=== PATIENT | female | born 1955 | race African-American/Black ===

== ENCOUNTER 2024-08-04 10:32 | Outpatient (AMB) | payer OTHER, SELFPAY ==
--- NOTE | 2024-08-04 10:36 | A.OFFVIS_ITS ---
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 States she has tightness, pain and discomfort from shoulder down to her foot. Hx of botox injections done at [facility], in her arm and T-spine and as of 6 months ago she is only getting in her arm only. States injections helped, once her doctor at [facility] retired she was referred to Dr Jane [facility]. No MRI done. 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 Left upper extremity spasticity. Treated with botulinum toxin injections by Dr. Mercer until he retired. Last injection with Dr. Mercer 08/20/2023. Transferred to Dr. Mercado for the injections, who did injections 1-2, none for the last 5-[address] Mercado referred patient to me. Ambulatory, using a cane. Not driving. 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 Mod I with toileting. I reviewed notes from Dr. Mercado's office. We further requested today for procedure notes. Received a follow-up note but not procedure note. I still do not have the information of how much was injected and which muscles. [facility] Medical History (Updated 08/04/24 @ 14:06 by Shyla Burgos MD) History of hemorrhagic stroke with residual hemiparesis Right spastic hemiparesis Social History (Updated 08/04/24 @ 10:44 by Amy Patel CCM) Current occupational status: retired and disabled Physical Exam Vital Signs: BMI result Body Mass Index 20.8 Constitutional: Patient appears to be in no acute distress, well nourished and well developed. Patient was appropriately conversant and oriented. Good historian. Neurological: Right elbow flexion has end range spasticity, Pinky 2 Tends to pronate right forearm, Pinky 2. Right wrist flexion not an issue appears like, wrist is extended. Right fingers are extended, but has spontaneous movement and tends to cross over. Assessment & Plan Assessment & Plan (1) Right spastic hemiparesis: Code(s): G81.11 - Spastic hemiplegia affecting right dominant side Category: Medical (2) History of hemorrhagic stroke with residual hemiparesis: Code(s): I69.359 - Hemiplegia and hemiparesis following cerebral infarction affecting unspecified side Category: Medical Plan Patient?s abnormal muscle tone in the setting of past stroke is interfering with functional ability, and is expected to result in joint contracture without adequate intervention. Standard medical treatments have failed. Surgical intervention is considered to be the last option. Therefore chemodenervation using botulinum is deemed necessary to enhance function and allow additional therapeutic modalities to be employed. We talked about botulinum toxin injections, why it is done, how it is done, and set goals for her. She has done this injections for many years now since Dr. Mercer. I would be happy to take over. Based on her exam, would inject right brachialis, brachioradialis and pronator teres muscles, 50 units each, total 150 units at least. I think we are looking into early August for the injection, pending prior approval. Also used educational materials to show her what her spasticity looks like and what we need to be doing. Patient eager and happy to proceed. Assessment and plan discussed with patient, and patient was agreeable. All questions were answered thoroughly. Total of 45 minutes spent today including chart review, results review, history taking, physical examination, discussion of assessment and plan, and coordination of care. [ ] Shyla Burgos MD, FINESSE Board Certified, [place] Board of Physical Medicine and Rehabilitation (ABPMR) Board Certified, [place] Board of Electrodiagnostic Medicine (ABEM) Coding Level of Care Code New Pt Level 4 (66236) Complex EM visit Add On G2211 Diagnoses Right spastic hemiparesis G81.11 History of hemorrhagic stroke with residual hemiparesis I69.359
[2024-08-04 10:37] VITALS: BMI 20.8
--- OUTSIDE RECORDS SUMMARY | 2024-08-04 11:55 | XMS_ITS | Data Portability ---
Author Organization [employer], Pr in - CONEXANCE MD Address [address] [place] [address] Care Team Providers Care Land Planner Name Role Phone [facility] Referring Provider [phone] Assessment No assessment recorded. Plan of Treatment Reminders Order Date Submit Date Provider Last Modified By Organization Details Last Modified Time Details Appointments None recorded. Lab None recorded. Referral None recorded. Procedures None recorded. Surgeries None recorded. Imaging None recorded. Medication Orders codeine 10 mg-guaife nesin 100 mg/5 mL oral liquid 023 [id number] [email or web address] [id number], [address] [place], [address], 3 14:25:39 Patient TargetsNo targets recorded. Patient InstructionsNo instructions recorded. Reason for Referral None Reported. Medical Equipment None Reported. Medications Name Sig Start Date Stop Date Status Note LastModified by Organization Details LastModified Time carvedilol 6.25 mg tablet TAKE 1 TABLET BY MOUTH IN THE MORNING TAKE 2 TABLETS BY MOUTH IN THE EVENING active Not Available Not Available No t Available atorvastatin 20 mg tablet TAKE 1 TABLET BY MOUTH EVERY DAY active Not Available Not Available No t Available hydralazine 25 mg tablet TAKE 1 TABLET (25 MG TOTAL) BY MOUTH IN THE MORNING 1 TABLET IN THE EVENING AND 1 TABLET AT BEDTIME active Not Available Not Available No t Available chlorthalidone 25 mg tablet TAKE 1 TABLET BY MOUTH EVERY DAY active Not Available Not Available No t Available aspirin 81 mg tablet,delayed release TAKE 1 TABLET BY MOUTH EVERY DAY active Not Available Not Available No t Available magnesium oxide 400 mg (241.3 mg magnesium) tablet TAKE 1 TABLET BY MOUTH EVERY DAY active Not Available Not Available No t Available ferrous sulfate 325 mg (65 mg iron) tablet TAKE 1 TABLET BY MOUTH EVERY DAY active Not Available Not Available No t Available lisinopril 30 mg tablet TAKE 1 TABLET BY MOUTH EVERY DAY active Not Available Not Available No t Available codeine 10 mg-guaifenesin 100 mg/5 mL oral liquid Take 15 mL every day by oral route at bedtime for 5 days. 2022 active Not Available Not Available Not Avai lable cholecalciferol (vitamin D3) 50 mcg (2,000 unit) tablet TAKE 1 TABLET BY MOUTH EVERY DAY active Not Available Not Available No t Available Vitals Date Recorded Body weight Respiratory rate Heart rate Body height Body temperature Oxygen saturation Oxygen saturation in Arterial blood by Pulse oximetry Systolic blood pressure Diastolic blood pressure Provider Name and Address Organization Details Last Updated DateTime 3 89644.8 56 g 18 /min 86 /min 157.48 cm 99.8 [degF] 98 % 98 % 127 mm[Hg] 83 mm[Hg] Not Available [facility] - production 3 14:20:17 Social History None recorded. Functional Status None recorded. Mental Status None recorded. Family History Nothing Reported. Medical History No medical history recorded. Gynecological HistoryNo gynecological history recorded. Obstetrics History GPAL:G 0 P 0 0 0 0 Past Encounters Encounter ID Performer Location Encounter Start Date Encounter Closed Date Diagnosis/Indication Diagnosis SNOMED-CT Code Diagnosis ICD10 Code Diagnosis Note [id number] Shea Mars MD [facility] - [facility] [address] [place] [phone] 03/09/2023 14:20:14 03/09/2023 14:26:34 Viral upper respiratory tract infection 988600033 J06.9 runny eyes, nose, cough worse at night. Advised otc nasal decongesta nt and will take robitussin with codeine qhs. MIld fever, no other focal or constituti onal sx to suggest bacterial process Health Concerns Section Related Observation LastModified by Organization Detai ls LastModified Time None Recorded Concern Status LastModified by Organization Details LastModified Time None Recorded Advance Directives Directive None Recorded Payers Insurance Date Sequence Insurance Name Policy Number Policy Altman Covered Member ID Altman Member ID Guarantor Name 03/09/2023 1 [facility] - DOS ON OR AFTER 2022 - DUAL ELIGIBLE - RESIDENTIAL OPTIONS AND ONE CARE (MEDICARE REPLACEMENT/ADV ANTAGE - HMO) Meme Naranjo [id number] Meme Naranjo Notes Date Note Type Note Provider Name and Address Organization Details Recorded Time 03/09/2023 text/html [facility] Nursing Assessment: Chief Complaints: URI Allergies: Unknown Comments: Member reports having a cough/cold/mika estion - Denies GRAYSON and body aches - Denies fever x1 week - Yonathan Mars MD [address] [place] [address],[address], [place], [address], DAVID - [facility] 03/09/2023 14:26:31 OBGyn Episode No OBEpisode recorded.
--- OUTSIDE RECORDS SUMMARY | 2024-08-04 11:55 | XMS_ITS | Clinical Summary ---
Author Organization [facility] Address [address] [facility] [address] [place] [address] Phone Care Team Providers Care Cardiovascular Specialist Name Role Phone Maria Esther Morales MD Primary Care Provider [phone] Allergies No known active allergies Medications aspirin (ST NANDINI) 81 MG EC tablet Take 1 tablet by mouth 1 (one) time each day Active tiZANidine (ZANAFLEX) 4 MG capsule Take 2 capsules by mouth in the morning and 2 capsules in the evening and 2 capsules before bedtime. Active ferrous sulfate 325 (65 Fe) MG tablet Take 1 tablet by mouth 1 (one) time each day 05/31/2012 Active carBAMazepine (CARBATROL) 100 MG 12 hr capsule Take 1 capsule by mouth in the morning and 1 capsule in the evening. Active baclofen (LIORESAL) 10 MG tablet Take 1 tablet by mouth in the morning and 1 tablet in the evening and 1 tablet before bedtime. Active atorvastatin (LIPITOR) 20 MG tablet Take 20 mg by mouth 1 (one) time each day 09/17/2021 Active lisinopril (PRINIVIL,ZESTR IL) 30 MG tablet Take 30 mg by mouth 1 (one) time each day 10/14/2021 Active Magnesium 400 MG tablet Take 400 mg by mouth 1 (one) time each day Active chlorthalidone 25 MG tablet Take 25 mg by mouth 1 (one) time each day Active hydrALAZINE 25 MG tablet Take 1 tablet (25 mg total) by mouth in the morning and 1 tablet (25 mg total) in the evening and 1 tablet (25 mg total) before bedtime. 270 tablet 3 08/11/2022 Active cinacalcet (Sensipar) 30 MG tablet Take 1 tablet (30 mg total) by mouth 1 (one) time each day 90 tablet 3 02/11/2024 02/06/20 25 Active carvedilol (COREG) 6.25 MG tablet TAKE 1 TABLET BY MOUTH IN THE MORNING TAKE 2 TABLETS BY MOUTH IN THE EVENING 270 tablet 3 02/15/2024 Active Active Problems Problem Noted Date Diagnosed Date Proteinuria, not otherwise specified 10/20/2021 Cerebrovascular accident 10/20/2021 Vitamin D deficiency 10/17/2021 Hypertension 10/17/2021 Renal stone 10/17/2021 Hypercalcemia 10/17/2021 Hyperaldosteronism 10/17/2021 Hemiparesis 10/17/2021 Edema 10/17/2021 Stage 3b chronic kidney disease 10/17/2021 Anemia of chronic disease 10/17/2021 Resolved Problems Problem Noted Date Diagnosed Date Resolved Date Hypotensive episode 10/17/2021 10/21/19 Family History Medical History Relation Comments Kidney disease Child Qvr-Zhguaruz-Zay Kidney Transplant Hypertension Mother Hypertension Sibling 1 Sister/Brother Diabetes Sibling 2 Brother Relation Status Comments Child Father Mother Alive Sibling 1 Sibling 2 Social History Tobacco Use Types Packs/Day Years Used Date Smoking Tobacco: Never Smokeless Tobacco: Never Tobacco Cessation:Counseling Given: Not Answered Alcohol Use Standard Drinks/Week Comments No 0 (1 standard drink = 0.6 oz pur e alcohol) Comments Unknown Sex and Gender Information Value Date Recorded Sex Assigned at Not on file Legal Sex Female 4:58 PM EST Gender Identity Not on file Sexual Orientation Not on file Last Filed Vital Signs Vital Sign Reading Time Taken Comments Blood Pressure 152/88 02/11/2024 9:42 AM EST Pulse 78 02/11/2024 9:42 AM EST Temperature - - Respiratory Rate 14 11/04/2018 12:0 0 PM EDT Oxygen Saturation 99% 02/11/2024 9:42 AM EST Inhaled Oxygen Concentration - - Weight 50.3 kg (110 lb 12.8 oz) 02/11/2024 9:42 AM EST Height 157.5 cm (5' 2 ) 02/11/2024 9:42 AM EST Body Mass Index 20.27 02/11/2024 9:42 AM EST Plan of Treatment Upcoming Encounters Date Type Department Care Team ([facility] st Contact Info) Description 08/10/2024 Orders Only [facility] [address] [phone] Daniel King MD [address] [phone] Stage 3b chronic kidney disease (HCC); Proteinuria, not otherwise specified; Hypertension; Hypercalcemia; Hyperaldosteronism, not otherwise specified (HCC); Cerebrovascular accident (HCC) 08/10/2024 9:20 AM EDT Office Visit [facility] [address] [phone] Daniel King MD [address] [phone] Health Maintenance Due Date Last Done Comments Breast Cancer Screening 1955 Colorectal Cancer Screening: Annual FOBT 2004 Colorectal Cancer Screening: Colonoscopy 2004 Colorectal Cancer Screening: Sigmoidoscopy 2004 Pneumococcal Vaccine: 50+ Ye ars (2 of 2 - PPSV23) 11/13/2020 09/18/2020 Influenza Vaccine (Season Ended) 2024 Pneumococcal Vaccine: Peds ( 0 to 5 Years) and At-Risk Patients (6 to 49 Years) Discontinued 09/18/2020 Hepatitis B Vaccine Aged Out No longe r eligible based on patient's age to complete this topic Procedures Procedure Name Priority Date/Time Associated Diagnosis Comments LIPID PANEL W/RFLX TO DIRECT LDL Routine 08/03/2024 1:48 PM EDT CBC WITH AUTO DIFFERENTIAL Routine 08/03/2024 1:48 PM EDT HEMOGLOBIN A1C Routine 08/03/2024 1:48 PM EDT Stage 3b chronic kidney disease (HCC) Proteinuria, not otherwise specified Hypertension Hypercalcemia Hyperaldosteronism , not otherwise specified (HCC) Cerebrovascular accident (HCC) VITAMIN D 25 HYDROXY Routine 08/03/2024 1:48 PM EDT Stage 3b chronic kidney disease (HCC) Proteinuria, not otherwise specified Hypertension Hypercalcemia Hyperaldosteronism , not otherwise specified (HCC) Cerebrovascular accident (HCC) PTH, INTACT Routine 08/03/2024 1:48 PM EDT Stage 3b chronic kidney disease (HCC) Proteinuria, not otherwise specified Hypertension Hypercalcemia Hyperaldosteronism , not otherwise specified (HCC) Cerebrovascular accident (HCC) PHOSPHATE ( PHOSPHORUS) Routine 08/03/2024 1:48 PM EDT Stage 3b chronic kidney disease (HCC) Proteinuria, not otherwise specified Hypertension Hypercalcemia Hyperaldosteronism , not otherwise specified (HCC) Cerebrovascular accident (HCC) MAGNESIUM Routine 08/03/2024 1:48 PM EDT Stage 3b chronic kidney disease (HCC) Proteinuria, not otherwise specified Hypertension Hypercalcemia Hyperaldosteronism , not otherwise specified (HCC) Cerebrovascular accident (HCC) URIC ACID Routine 08/03/2024 1:48 PM EDT Stage 3b chronic kidney disease (HCC) Proteinuria, not otherwise specified Hypertension Hypercalcemia Hyperaldosteronism , not otherwise specified (HCC) Cerebrovascular accident (HCC) COMPREHENSIVE METABOLIC PANEL Routine 08/03/2024 1:48 PM EDT Stage 3b chronic kidney disease (HCC) Proteinuria, not otherwise specified Hypertension Hypercalcemia Hyperaldosteronism , not otherwise specified (HCC) Cerebrovascular accident (HCC) from Last 3 Months Results * Lipid Panel w/Rfl Direct LDL (08/03/2024 1:48 PM EDT) Cholesterol 117 0 - 200 mg/dL [facility] Triglycerides 71 0 - 150 mg/dL [facility] HDL 52 >=40 mg/dL [facility] LDL Calculated 51 0 - 100 mg/dL [facility] VLDL Cholesterol Emmanuel 14.2 mg/dL [facility] Total Qgd-RBI-Sbil (LDL+VLDL) 65 <145 mg/dL [facility] Chol/HDL Ratio 2.3 0.0 - 4.4 [facility] 08/03/2024 1:48 PM EDT 08/03/2024 6:05 PM EDT us Daniel King MD LAB BLOOD ORDERABLES Final Re sult BEBA [facility] [address] [place] [address] * (ABNORMAL) CBC auto differential (08/03/2024 1:48 PM EDT) WBC 6.5 4.8 - 10.8 K/[facility] RBC 3.60(L) 3.80 - 4.80 M/[facility] Hgb 11.3(L) 11.5 - 16.0 g/dL [facility] Hematocrit 34.8(L) 35.0 - 47.0 % [facility] MCV 96.9 79.0 - 98.0 FL [facility] MCH 31.5 27.0 - 32.0 pcg [facility] MCHC 32.5 32.0 - 37.0 g/dL [facility] RDW 12.2 11.0 - 15.0 % [facility] Platelets 169 130 - 400 K/[facility] MPV 11.0 7.0 - 11.0 FL [facility] nRBC Count 0.0 <1.0 % [facility] NRBC Absolute 0.00 <0.10 [facility] Bands Relative 51.3 % [facility] Lymphocyte Realative Percent 39.0 % [facility] Monocyte Relative Percent 6.3 % [facility] Eosinophil Relative Percent 2.5 % [facility] Basophils Relative Diff 0.6 % [facility] Immature Granulocytes 0.3 % [facility] Neutrophils Absolute 3.34 1.50 - 7.00 [facility] Lymphocytes Absolute 2.54 1.00 - 5.00 [facility] Monocytes Absolute 0.41 0.20 - 1.00 [facility] Eosinophil Absolute 0.16 0.00 - 0.50 [facility] Basophil ABS 0.04 0.00 - 0.20 [facility] Immature Grans (Absolute) 0.02 0.00 - 0.03 [facility] 08/03/2024 1:48 PM EDT 08/03/2024 6:05 PM EDT Daniel King MD LAB BLOOD ORDERABLES Final Re sult Performing Organization Address [facility]/ZIP Co de Phone Number [facility] [address] [place] [address] * Vitamin D 25 Hydroxy (08/03/2024 1:48 PM EDT) Pathologist [facility] Vitamin D, 25-OH, Total 52.2 30.0 - 80.0 ng/mL [facility] Blood (Blood, Venous) 08/03/2024 1:48 PM EDT 08/03/2024 6:05 PM EDT us Daniel King MD LAB BLOOD ORDERABLES Final Re sult Performing Organization Address City/[facility]/ZIP Co de Phone Number [facility] [address] [place] [address] * Uric Acid (08/03/2024 1:48 PM EDT) Uric Acid 5.7 3.1 - 7.8 mg/dL [facility] Blood (Blood, Venous) 08/03/2024 1:48 PM EDT 08/03/2024 6:05 PM EDT us Daniel King MD LAB BLOOD ORDERABLES Final Re sult Performing Organization Address [facility] de Phone Number [facility] [address] [place] [address] * Phosphorus (08/03/2024 1:48 PM EDT) Phosphorus 3.1 2.5 - 4.5 mg/dL [facility] Blood (Blood, Venous) 08/03/2024 1:48 PM EDT 08/03/2024 6:05 PM EDT Daniel King MD LAB BLOOD ORDERABLES Final Re sult Performing Organization Address [facility] de Phone Number [facility] [address] [place] [address] * (ABNORMAL) PTH, Intact (08/03/2024 1:48 PM EDT) PTH 125.8(H) 18.5 - 88.0 pcg/mL [facility] Blood (Blood, Venous) 08/03/2024 1:48 PM EDT 08/03/2024 6:05 PM EDT us Daniel King MD LAB BLOOD ORDERABLES Final Re sult Performing Organization Address [facility] Co de Phone Number [facility] [address] [place] [address] * (ABNORMAL) Magnesium (08/03/2024 1:48 PM EDT) Magnesium 1.8(L) 1.9 - 2.6 mg/dL [facility] Blood (Blood, Venous) 08/03/2024 1:48 PM EDT 08/03/2024 6:05 PM EDT Daniel King MD LAB BLOOD ORDERABLES Final Re sult Performing Organization Address [facility]/ZIP Co de Phone Number [facility] [address] [place] [address] * Hemoglobin A1c (08/03/2024 1:48 PM EDT) [facility] Hemoglobin A1C 4.8 <6.5 % [facility] Estimated Average Glucose 91 mg/dL [facility] Blood (Blood, Venous) 08/03/2024 1:48 PM EDT 08/03/2024 6:05 PM EDT Daniel King MD LAB BLOOD ORDERABLES Final Re sult Performing Organization Address [facility]/ZIP Co de Phone Number [facility] [address] [place] [address] * (ABNORMAL) Comprehensive Metabolic Panel (08/03/2024 1:48 PM EDT) [facility] Sodium 141 133 - 145 mmol/L [facility] Potassium 3.9 3.5 - 5.5 mmol/L [facility] Chloride 108 96 - 110 mmol/L [facility] Bicarbonate (CO2) 24 21 - 32 mmol/L [facility] Anion Gap 9 3 - 11 [facility] Glucose 82 70 - 100 mg/dL [facility] BUN 51(H) 5 - 25 mg/dL [facility] Creatinine Serum 1.66(H) 0.50 - 1.10 mg/dL [facility] eGFR 33(L) >=60 mL/min/1. 73m2 [facility] Comment:Calculation based on the Chronic Kidney Disease Epidemiology Collaboration (CKD-EPI) equation refit without adjustment for race. BUN/Creatinine Ratio 30.7 [facility] Calcium 9.7 8.5 - 10.5 mg/dL [facility] AST (SGOT) 21 10 - 42 unit/L [facility] ALT (SGPT) 18 10 - 60 unit/L [facility] Alkaline Phosphatase 100 42 - 121 unit/L [facility] Total Protein 7.4 6.0 - 8.0 g/dL [facility] Albumin 3.9 3.2 - 5.0 g/dL [facility] Total Bilirubin 0.6 0.0 - 1.4 mg/dL [facility] Blood (Blood, Venous) 08/03/2024 1:48 PM EDT 08/03/2024 6:05 PM EDT us Daniel King MD LAB BLOOD ORDERABLES Final Re sult BEBA [facility] [address] [place] [address] from Last 3 Months Insurance [facility] ([id number]) [facility] ([id number]) Care Teams Cardiovascular Specialist Relationship Specialty Start Date End Date Maria Esther Morales MD [address] [facility] [address] [place] [address] PCP - General 04/09/20
--- OUTSIDE RECORDS SUMMARY | 2024-08-04 11:55 | XMS_ITS | Clinical Summary ---
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 1 Active carBAMazepine (CARBATROL) 100 mg 12 hr capsule Take 1 capsule (100 mg total) by mouth 2 (two) times a day. 1 Active carvediloL (COREG) 6.25 mg tablet Take 1 tablet (6.25 mg total) by mouth 2 (two) times a day with meals. 3 Active cholecalcifero l (VITAMIN D-3) 50 mcg (2,000 unit) tablet Take 1 tablet (2,000 Units total) by mouth 1 (one) time each day. 4 Active ferrous sulfate 325 mg (65 mg elemental iron) tablet Take 1 tablet (325 mg total) by mouth 1 (one) time each day. 4 Active tiZANidine (ZANAFLEX) 4 mg tablet Take 1 tablet (4 mg total) by mouth every 6 (six) hours if needed for muscle spasms. 1 Active magnesium oxide (MAG-OX) 400 mg (241.3 elemental magnesium) tablet TAKE 1 TABLET BY MOUTH EVERY DAY 90 tablet 1 5 Active chlorthalidone (HYGROTON) 25 mg tablet TAKE 1 TABLET BY MOUTH EVERY DAY 90 tablet 1 5 Active lisinopriL (PRINIVIL,ZEST RIL) 30 mg tablet TAKE 1 TABLET BY MOUTH EVERY DAY 90 tablet 1 5 Active atorvastatin (LIPITOR) 20 mg tablet TAKE 1 TABLET BY MOUTH EVERY DAY 90 tablet 1 5 Active hydrALAZINE (APRESOLINE) 25 mg tablet TAKE 1 TABLET BY MOUTH TWICE A DAY 180 tablet 1 5 Active aspirin 81 mg EC tablet TAKE 1 TABLET BY MOUTH EVERY DAY 90 tablet 1 5 Active atorvastatin (LIPITOR) 20 mg tablet TAKE 1 TABLET BY MOUTH EVERY DAY 90 tablet 1 4 07/15/19 25 Discontinued lisinopriL (PRINIVIL,ZEST RIL) 30 mg tablet TAKE 1 TABLET BY MOUTH EVERY DAY 90 tablet 1 4 07/15/19 25 Discontinued hydrALAZINE (APRESOLINE) 25 mg tablet TAKE 1 TABLET BY MOUTH TWICE A DAY 180 tablet 1 4 07/15/19 25 Discontinued aspirin 81 mg EC tablet TAKE 1 TABLET BY MOUTH EVERY DAY 90 tablet 1 4 07/15/19 25 Discontinued Active Problems Problem Noted Date Diagnosed Date Spastic hemiplegia of left d ominant side as late effect of cerebral infarction ([facility] V24, [facility] V28) 07/02/2024 CKD (chronic kidney disease) stage 3, GFR 30-59 ml/min ([facility] V24, [facility] V28) 09/18/2017 Hypertension 09/18/2017 Hemiplegia affecting nondomi nant side ([facility] V24, [facility] V28) 02/29/2016 Anemia in chronic kidney disease 02/26/2016 Vitamin D deficiency 07/24/2015 Osteopenia 07/12/2015 Encounters Date Type Department Care Team Description 06/23/2024 11:15 AM EDT Office Visit Internal Medicine - [address] [place] [address] Rajesh Morales MD Primary hypertension (Primary Dx); Stage 3b chronic kidney disease ([facility] V24, [facility] V28); Hemiplegia affecting nondominant side ([facility] V24, [facility] V28); Spastic hemiplegia of left dominant side as late effect of cerebral infarction ([facility] V24, [facility] V28); Osteopenia of multiple sites from Last 3 Months Immunizations Name Administration Dates Next Due Pneumococcal conjugate 13 va lent (Prevnar 13, PCV13) 2mo and older 09/18/2020 Surgical History Surgery Date Site/Laterality Comments TUBAL LIGATION PROCEDURE: HISTORICAL TUBAL LIGATION COLONOSCOPY PROCEDURE: HISTORICAL COLONOSCOPY Medical History Medical History Date Comments Anemia in chronic kidney disease 02/26/2016 DX:Anemia in chronic kidney disease CKD (chronic kidney disease) stage 3, GFR 30-59 ml/min ([facility] V24, [facility] V28) 09/18/2017 DX:CKD (chronic kidney disea se) stage 3, GFR 30-59 ml/min ([facility]) Hemiplegia affecting nondomi nant side ([facility] V24, [facility] V28) 02/29/2016 DX:Hemiplegia affecting non dominant side ([facility]) Hypertension 09/18/2017 DX:Hypertension Osteopenia 07/12/2015 DX:Osteopenia Vitamin D deficiency 07/24/2015 DX:Vitamin D deficiency Social History Tobacco Use Types Packs/Day Years Used Date Smoking Tobacco: Never Smokeless Tobacco: Never Tobacco Cessation:Counseling Given: Not Answered Alcohol Use Standard Drinks/Week Comments No 0 (1 standard drink = 0.6 oz pur e alcohol) Comments No Sex and Gender Information Value Date Recorded Sex Assigned at Female 01/18/2024 9:46 AM EDT Legal Sex Female 10:52 PM EST Gender Identity Female 01/18/2024 9:46 AM EDT Sexual Orientation Straight 01/29/2024 2: 45 PM EDT Obstetrics History Para Term AB IAB SAB Ectopic Multiple Livin g Live Births 2 Last Filed Vital Signs Vital Sign Reading Time Taken Comments Blood Pressure 120/60 06/23/2024 11:34 AM EDT Pulse 65 06/23/2024 11:30 AM EDT Temperature 36.8 ??C (98.2 ??F) 06/23/2024 11:30 AM E DT Respiratory Rate - - Oxygen Saturation 99% 06/23/2024 11:30 AM EDT Inhaled Oxygen Concentration - - Weight 49.9 kg (110 lb) 06/23/2024 11:30 AM EDT Height 157.5 cm (5' 2 ) 02/02/2024 11:23 AM EST Body Mass Index 20.12 02/02/2024 11:23 AM EST Plan of Treatment Upcoming Encounters Date Type Department Care Team (Late st Contact Info) Description 12/28/2024 11:15 AM EDT Office Visit Internal Medicine - [place] [address] [place] [address] Rajesh Morales MD [address] [place] [address] Health Maintenance Due Date Last Done Comments DTaP,Tdap,and Td Vaccines (1 - Tdap) 1974 Zoster Vaccines (1 of 2) 2005 RSV Immunization Adult Patients (1 - Risk 60-74 years 1-dose series) 2015 Pneumococcal Vaccine: 50+ Years (2 of 2 - PPSV23) 09/18/2021 09/18/2020 Colorectal Cancer Screening: Colonoscopy 03/08/2022 Falls Risk Assessment 03/08/2022 Hepatitis C Screening 03/08/2022 Social Influencers of Health Screening 03/08/2022 COVID-19 Vaccine ( season) 2023 02/05/2021, 07/05/2020, 06/07/2020 Depression Screening 07/21/2024 07/22/2023 Influenza Vaccine (Season Ended) 2024 Hypertension/CHF/CAD Annual BMP Blood Test 08/03/2025 08/03/2024, 02/05/2024, 02/05/2024, Additional history exists Breast Cancer Screening 02/01/2026 02/02/20 24, 01/26/2023, 01/22/2022, Additional history exists Cholesterol Screening (Lipid Panel) 08/03/2029 08/03/2024, 12/25/2023, 12/25/2023 Osteoporosis Screening (Bone Density Screening) 04/19/2034 04/19/2024, 05/23/2020 HIB Vaccines Aged Out No longer eligi ble based on patient's age to complete this topic HPV Vaccines Aged Out No longer eligi ble based on patient's age to complete this topic Hepatitis A Vaccines Aged Out No long er eligible based on patient's age to complete this topic Hepatitis B Vaccines Aged Out No long er eligible based on patient's age to complete this topic IPV Vaccines Aged Out No longer eligi ble based on patient's age to complete this topic MMR Vaccines Aged Out No longer eligi ble based on patient's age to complete this topic Meningococcal ACWY Vaccine Aged Out N o longer eligible based on patient's age to complete this topic Meningococcal B Vaccine Aged Out No l onger eligible based on patient's age to complete this topic RSV Immunization Patients Under 20 months Aged Out No longer eligible based on patient's age to complete this topic Varicella Vaccines Aged Out No longer eligible based on patient's age to complete this topic Procedures Procedure Name Priority Date/Time Associated Diagnosis Comments CBC WITH AUTO DIFFERENTIAL Routine 08/03/2024 1:48 PM EDT Chronic kidney disease (CKD) stage G3b/A1, moderately decreased glomerular filtration rate (GFR) between 30-44 mL/min/1.73 square meter and albuminuria creatinine ratio les* ([facility] V24, [facility] V28) Proteinuria Essential hypertension, malignant Hypercalcemia Hyperaldosteronism, unspecified (CMS/HCC V24) Impending cerebrovascular accident ([facility] V24, CMS/HCC V28) HEMOGLOBIN A1C Routine 08/03/2024 1:48 PM EDT Chronic kidney disease (CKD) stage G3b/A1, moderately decreased glomerular filtration rate (GFR) between 30-44 mL/min/1.73 square meter and albuminuria creatinine ratio les* ([facility]/HCC V24, CMS/HCC V28) Proteinuria Essential hypertension, malignant Hypercalcemia Hyperaldosteronism, unspecified (CMS/HCC V24) Impending cerebrovascular accident (CMS/HCC V24, CMS/HCC V28) LIPID PANEL WITH REFLEX TO DIRECT LDL Routine 08/03/2024 1:48 PM EDT Chronic kidney disease (CKD) stage G3b/A1, moderately decreased glomerular filtration rate (GFR) between 30-44 mL/min/1.73 square meter and albuminuria creatinine ratio les* ([facility]/HCC V24, CMS/HCC V28) Proteinuria Essential hypertension, malignant Hypercalcemia Hyperaldosteronism, unspecified (CMS/HCC V24) Impending cerebrovascular accident (CMS/HCC V24, CMS/HCC V28) CBC AND DIFFERENTIAL Routine 08/03/2024 1:48 PM EDT Chronic kidney disease (CKD) stage G3b/A1, moderately decreased glomerular filtration rate (GFR) between 30-44 mL/min/1.73 square meter and albuminuria creatinine ratio les* (CMS/HCC V24, CMS/HCC V28) Proteinuria Essential hypertension, malignant Hypercalcemia Hyperaldosteronism, unspecified (CMS/HCC V24) Impending cerebrovascular accident (CMS/HCC V24, CMS/HCC V28) VITAMIN D 25 HYDROXY Routine 08/03/2024 1:48 PM EDT Chronic kidney disease (CKD) stage G3b/A1, moderately decreased glomerular filtration rate (GFR) between 30-44 mL/min/1.73 square meter and albuminuria creatinine ratio les* (CMS/HCC V24, CMS/HCC V28) Proteinuria Essential hypertension, malignant Hypercalcemia Hyperaldosteronism, unspecified (CMS/HCC V24) Impending cerebrovascular accident ([facility] V24, CMS/HCC V28) PARATHYROID HORMONE INTACT Routine 08/03/2024 1:48 PM EDT Chronic kidney disease (CKD) stage G3b/A1, moderately decreased glomerular filtration rate (GFR) between 30-44 mL/min/1.73 square meter and albuminuria creatinine ratio les* (CMS/HCC V24, CMS/HCC V28) Proteinuria Essential hypertension, malignant Hypercalcemia Hyperaldosteronism, unspecified (CMS/HCC V24) Impending cerebrovascular accident (CMS/HCC V24, CMS/HCC V28) PHOSPHORUS Routine 08/03/2024 1:48 PM EDT Chronic kidney disease (CKD) stage G3b/A1, moderately decreased glomerular filtration rate (GFR) between 30-44 mL/min/1.73 square meter and albuminuria creatinine ratio les* (CMS/HCC V24, CMS/HCC V28) Proteinuria Essential hypertension, malignant Hypercalcemia Hyperaldosteronism, unspecified (CMS/HCC V24) Impending cerebrovascular accident (CMS/HCC V24, CMS/HCC V28) MAGNESIUM Routine 08/03/2024 1:48 PM EDT Chronic kidney disease (CKD) stage G3b/A1, moderately decreased glomerular filtration rate (GFR) between 30-44 mL/min/1.73 square meter and albuminuria creatinine ratio les* (CMS/HCC V24, CMS/HCC V28) Proteinuria Essential hypertension, malignant Hypercalcemia Hyperaldosteronism, unspecified (CMS/HCC V24) Impending cerebrovascular accident (CMS/HCC V24, CMS/HCC V28) URIC ACID Routine 08/03/2024 1:48 PM EDT Chronic kidney disease (CKD) stage G3b/A1, moderately decreased glomerular filtration rate (GFR) between 30-44 mL/min/1.73 square meter and albuminuria creatinine ratio les* (CMS/HCC V24, CMS/HCC V28) Proteinuria Essential hypertension, malignant Hypercalcemia Hyperaldosteronism, unspecified (CMS/HCC V24) Impending cerebrovascular accident (CMS/HCC V24, CMS/HCC V28) COMPREHENSIVE METABOLIC PANEL Routine 08/03/2024 1:48 PM EDT Chronic kidney disease (CKD) stage G3b/A1, moderately decreased glomerular filtration rate (GFR) between 30-44 mL/min/1.73 square meter and albuminuria creatinine ratio les* (CMS/HCC V24, CMS/HCC V28) Proteinuria Essential hypertension, malignant Hypercalcemia Hyperaldosteronism, unspecified (CMS/HCC V24) Impending cerebrovascular accident (CMS/HCC V24, CMS/HCC V28) MG MAMMO DIGITAL SCREENING W GALDINO BILAT Routine 02/02/2024 11:26 AM EST Encounter for screening mammogram for malignant neoplasm of breast HM DEPRESSION SCREENING Routine 07/22/2023 TALISHA DEXA AXIAL SKELETON Routine 05/23/2020 5:08 PM EST Asymptomatic menopausal state from Last 3 Months or Most Recently Relevant to Health Maintenance Results * Lipid panel with reflex to direct LDL (08/03/2024 1:48 PM EDT) Cholesterol 117 0 - 200 mg/dL LAB CHEMISTRY METHOD 08/03/2024 7:22 PM EDT [facility] Triglycerides 71 0 - 150 mg/dL LAB CHEMISTRY METHOD 08/03/2024 7:22 PM EDT [facility] HDL 52 >=40 mg/dL LAB CHEMISTRY METHOD 08/03/2024 7:22 PM EDT [facility] LDL Calculated 51 0 - 100 mg/dL LAB CHEMISTRY METHOD 08/03/2024 7:22 PM EDT [facility] VLDL Cholesterol Emmanuel 14.2 mg/dL LAB CHEMISTRY METHOD 08/03/2024 7:22 PM EDT [facility] Non HDL Chol. (LDL+VLDL) 65 <145 mg/dL LAB CHEMISTRY METHOD 08/03/2024 7:22 PM EDT [facility] Chol/HDL Ratio 2.3 0.0 - 4.4 LAB CHEMISTRY METHOD 08/03/2024 7:22 PM EDT [facility] Blood Venous blood specimen / Unknown Venipuncture / Unknown 08/03/2024 1:48 PM EDT 08/03/2024 1:48 PM EDT us Daniel King MD LAB BLOOD ORDERABLES Final Result [facility] [address] [place] [address], * (ABNORMAL) CBC auto differential (08/03/2024 1:48 PM EDT) WBC 6.5 4.8 - 10.8 K/mcL LAB HEMETOLOGY METHOD 08/03/2024 6:22 PM EDT [facility] RBC 3.60(L) 3.80 - 4.80 M/mcL LAB HEMETOLOGY METHOD 08/03/2024 6:22 PM EDT [facility] Hemoglobin 11.3(L) 11.5 - 16.0 g/dL LAB HEMETOLOGY METHOD 08/03/2024 6:22 PM [facility] Hematocrit 34.8(L) 35.0 - 47.0 % LAB HEMETOLOGY METHOD 08/03/2024 6:22 PM [facility] MCV 96.9 79.0 - 98.0 FL LAB HEMETOLOGY METHOD 08/03/2024 6:22 PM [facility] MCH 31.5 27.0 - 32.0 pcg LAB HEMETOLOGY METHOD 08/03/2024 6:22 PM [facility] MCHC 32.5 32.0 - 37.0 g/dL LAB HEMETOLOGY METHOD 08/03/2024 6:22 PM [facility] RDW 12.2 11.0 - 15.0 % LAB HEMETOLOGY METHOD 08/03/2024 6:22 PM [facility] Platelets 169 130 - 400 K/mcL LAB HEMETOLOGY METHOD 08/03/2024 6:22 PM [facility] MPV 11.0 7.0 - 11.0 FL LAB HEMETOLOGY METHOD 08/03/2024 6:22 PM [facility] NRBC 0.0 <1.0 % LAB HEMETOLOGY METHOD 08/03/2024 6:22 PM [facility] NRBC Absolute 0.00 <0.10 K/mcL LAB HEMETOLOGY METHOD 08/03/2024 6:22 PM [facility] Neutrophils Relative 51.3 % LAB HEMETOLOGY METHOD 08/03/2024 6:22 PM [facility] Lymphocytes Relative 39.0 % LAB HEMETOLOGY METHOD 08/03/2024 6:22 PM [facility] Monocytes Relative 6.3 % LAB HEMETOLOGY METHOD 08/03/2024 6:22 PM [facility] Eosinophils Relative 2.5 % LAB HEMETOLOGY METHOD 08/03/2024 6:22 PM EDT [facility] Basophils Relative 0.6 % LAB HEMETOLOGY METHOD 08/03/2024 6:22 PM EDT [facility] Immature Granulocytes Relative 0.3 % LAB HEMETOLOGY METHOD 08/03/2024 6:22 PM EDT [facility] Neutrophils Absolute 3.34 1.50 - 7.00 K/mcL LAB HEMETOLOGY METHOD 08/03/2024 6:22 PM EDT [facility] Lymphocytes Absolute 2.54 1.00 - 5.00 K/mcL LAB HEMETOLOGY METHOD 08/03/2024 6:22 PM EDT [facility] Monocytes Absolute 0.41 0.20 - 1.00 K/mcL LAB HEMETOLOGY METHOD 08/03/2024 6:22 PM EDT [facility] Eosinophils Absolute 0.16 0.00 - 0.50 K/mcL LAB HEMETOLOGY METHOD 08/03/2024 6:22 PM EDT [facility] Basophils Absolute 0.04 0.00 - 0.20 K/mcL LAB HEMETOLOGY METHOD 08/03/2024 6:22 PM EDT [facility] Immature Granulocytes Absolute 0.02 0.00 - 0.03 K/mcL LAB HEMETOLOGY METHOD 08/03/2024 6:22 PM EDT [facility] Blood Venous blood specimen / Unknown Venipuncture / Unknown 08/03/2024 1:48 PM EDT 08/03/2024 1:50 PM EDT us Daniel King MD LAB BLOOD ORDERABLES Final Result [facility] [address] [place] [address], * Vitamin D 25 hydroxy (08/03/2024 1:48 PM EDT) Vit D, 25-Hydroxy 52.2 30.0 - 80.0 ng/mL LAB CHEMISTRY METHOD 08/03/2024 8:48 PM EDT [facility] Blood Venous blood specimen / Unknown Venipuncture / Unknown 08/03/2024 1:48 PM EDT 08/03/2024 1:48 PM EDT us Daniel King MD LAB BLOOD ORDERABLES Final Result [facility] [address] [place] [address], [place] [phone] * Uric acid (08/03/2024 1:48 PM EDT) Uric Acid 5.7 3.1 - 7.8 mg/dL LAB CHEMISTRY METHOD 08/03/2024 7:22 PM EDT [facility] Blood Venous blood specimen / Unknown Venipuncture / Unknown 08/03/2024 1:48 PM EDT 08/03/2024 1:48 PM EDT us Daniel King MD LAB BLOOD ORDERABLES Final Result [facility] [address] [place] [address], [place] [phone] * Phosphorus (08/03/2024 1:48 PM EDT) Phosphorus 3.1 2.5 - 4.5 mg/dL LAB CHEMISTRY METHOD 08/03/2024 7:22 PM EDT [facility] Blood Venous blood specimen / Unknown Venipuncture / Unknown 08/03/2024 1:48 PM EDT 08/03/2024 1:48 PM EDT us Daniel King MD LAB BLOOD ORDERABLES Final Result Performing Organization Address [facility]/ZIP Co de Phone Number [facility] [address] [place] [address], [place] [phone] * (ABNORMAL) Parathyroid hormone intact (08/03/2024 1:48 PM EDT) PTH 125.8(H) 18.5 - 88.0 pcg/mL LAB CHEMISTRY METHOD 08/03/2024 8:42 PM EDT [facility] Blood Venous blood specimen / Unknown Venipuncture / Unknown 08/03/2024 1:48 PM EDT 08/03/2024 1:48 PM EDT us Daniel King MD LAB BLOOD ORDERABLES Final Result Performing Organization Address [facility] de Phone Number [facility] [address] [place] [address], [place] [phone] * (ABNORMAL) Magnesium (08/03/2024 1:48 PM EDT) [facility] Magnesium 1.8(L) 1.9 - 2.6 mg/dL LAB CHEMISTRY METHOD 08/03/2024 7:22 PM EDT [facility] Blood Venous blood specimen / Unknown Venipuncture / Unknown 08/03/2024 1:48 PM EDT 08/03/2024 1:48 PM EDT us Daniel King MD LAB BLOOD ORDERABLES Final Result Performing Organization Address [facility] Co de Phone Number [facility] [address] [place] [address], [place] [phone] * Hemoglobin A1c (08/03/2024 1:48 PM EDT) Hemoglobin A1C 4.8 <6.5 % LAB CHEMISTRY METHOD 08/03/2024 9:35 PM EDT [facility] Mean Bld Glu Estim. 91 mg/dL LAB CHEMISTRY METHOD 08/03/2024 9:35 PM [facility] Blood Venous blood specimen / Unknown Venipuncture / Unknown 08/03/2024 1:48 PM EDT 08/03/2024 1:50 PM EDT us Daniel King MD LAB BLOOD ORDERABLES Final Result [facility] [address] [place] [address], [place] [phone] * (ABNORMAL) Comprehensive metabolic panel (08/03/2024 1:48 PM EDT) Sodium 141 133 - 145 mmol/L LAB CHEMISTRY METHOD 08/03/2024 7:22 PM [facility] Potassium 3.9 3.5 - 5.5 mmol/L LAB CHEMISTRY METHOD 08/03/2024 7:22 PM [facility] Chloride 108 96 - 110 mmol/L LAB CHEMISTRY METHOD 08/03/2024 7:22 PM [facility] CO2 24 21 - 32 mmol/L LAB CHEMISTRY METHOD 08/03/2024 7:22 PM [facility] Anion Gap 9 3 - 11 LAB CHEMISTRY METHOD 08/03/2024 7:22 PM [facility] Glucose 82 70 - 100 mg/dL LAB CHEMISTRY METHOD 08/03/2024 7:22 PM [facility] BUN 51(H) 5 - 25 mg/dL LAB CHEMISTRY METHOD 08/03/2024 7:22 PM [facility] Creatinine 1.66(H) 0.50 - 1.10 mg/dL LAB CHEMISTRY METHOD 08/03/2024 7:22 PM [facility] eGFR 33(L) >=60 mL/min/1. 73m2 LAB CHEMISTRY METHOD 08/03/2024 7:22 PM EDT [facility] Comment:Calculation based on the Chronic Kidney Disease Epidemiology Collaboration (CKD-EPI) equation refit without adjustment for race. BUN/Creatinine Ratio 30.7 LAB CHEMISTRY METHOD 08/03/2024 7:22 PM [facility] Calcium 9.7 8.5 - 10.5 mg/dL LAB CHEMISTRY METHOD 08/03/2024 7:22 PM [facility] AST (SGOT) 21 10 - 42 unit/L LAB CHEMISTRY METHOD 08/03/2024 7:22 PM [facility] ALT (SGPT) 18 10 - 60 unit/L LAB CHEMISTRY METHOD 08/03/2024 7:22 PM [facility] Alkaline Phosphatase 100 42 - 121 unit/L LAB CHEMISTRY METHOD 08/03/2024 7:22 PM [facility] Total Protein 7.4 6.0 - 8.0 g/dL LAB CHEMISTRY METHOD 08/03/2024 7:22 PM [facility] Albumin 3.9 3.2 - 5.0 g/dL LAB CHEMISTRY METHOD 08/03/2024 7:22 PM [facility] Total Bilirubin 0.6 0.0 - 1.4 mg/dL LAB CHEMISTRY METHOD 08/03/2024 7:22 PM [facility] Blood Venous blood specimen / Unknown Venipuncture / Unknown 08/03/2024 1:48 PM EDT 08/03/2024 1:48 PM EDT us Daniel King MD LAB BLOOD ORDERABLES Final Result [facility]) [facility] [address] [place] [address], [place] [phone] * MG Mammo Digital Screening w Galdino bilat (02/02/2024 11:26 AM EST) Anatomical Region Laterality Modality Breast Bilateral Mammography 02/02/2024 12:5 2 PM EST Impressions 02/02/2024 1:03 PM EST No mammographic evidence of malignancy. ?? No suspicious interval change. Patient was unable to be optimally positioned. ASSESSMENT: ?? BI-RADS 1: NEGATIVE RECOMMENDATION(S): 1: Routine screening mammogram BILATERAL in 1 year. -------- FINAL REPORT -------- Dictated By: Jase Montoya Dictated Date: 02/02/2024 12:52 ET Assigned Physician: Jase Montoya Reviewed and Electronically Signed By: Jase Montoya Signed Date: 02/02/2024 13:03 ET Workstation ID: [id number] Transcribed By: Self Edit Transcribed Date: 02/02/2024 12:52 ET Narrative 02/02/2024 1:03 PM EST EXAM: ??SCREENING MAMMOGRAPHY, BILATERAL HISTORY: ??SCREENING. ??No additional history. COMPARISON: ??01/26/2023, 01/22/2022, 06/20/2020 TECHNIQUE: Synthesized CC and MLO projections of each breast. ??Tomosynthesis of each breast in the CC and MLO projections. The left MLO is suboptimal. ??The patient was unable to be optimally positioned (stroke). ADDITIONAL IMAGING: None Computer-aided detection was employed with the iCAD ??profound AI 3-D. TISSUE DENSITY: The breasts are heterogeneously dense, which may obscure small masses. (BI-RADS category C) FINDINGS: RIGHT BREAST: No suspicious mass. No suspicious calcification. No distortion. ?? No additional suspicious right breast findings LEFT BREAST: No suspicious mass. No suspicious calcification. No distortion. ?? No additional suspicious left breast findings Procedure Note Jase Montoya MD - 02/02/2024 EXAM: SCREENING MAMMOGRAPHY, BILATERAL HISTORY: SCREENING. No additional history. COMPARISON: 01/26/2023, 01/22/2022, 06/20/2020 TECHNIQUE: Synthesized CC and MLO projections of each breast.Tomosynthesis of each breast in the CC and MLO projections. The left MLO is suboptimal. The patient was unable to be optimallypositioned (stroke). ADDITIONAL IMAGING: None Computer-aided detection was employed with the iCAD Step-In AI 3-D. TISSUE DENSITY: The breasts are heterogeneously dense, which may obscuresmall masses. (BI-RADS category C) FINDINGS: RIGHT BREAST: No suspicious mass. No suspicious calcification. No distortion. Noadditional suspicious right breast findings LEFT BREAST: No suspicious mass. No suspicious calcification. No distortion. Noadditional suspicious left breast findings IMPRESSION: No mammographic evidence of malignancy. No suspicious interval change. Patient was unable to be optimally positioned. ASSESSMENT: BI-RADS 1: NEGATIVE RECOMMENDATION(S): 1: Routine screening mammogram BILATERAL in 1 year. -------- FINAL REPORT -------- Dictated By: Jase Montoya Dictated Date: 02/02/2024 12:52 ET Assigned Physician: Jase Montoya Reviewed and Electronically Signed By: Jase Montoya Signed Date: 02/02/2024 13:03 ET Workstation ID: [id number] Transcribed By: Self Edit Transcribed Date: 02/02/2024 12:52 ET Rajesh Morales MD IMG BI PROCEDURES Final Result * Depression Screening (07/22/2023) Depression Screening Abstracted Historical Provider HEALTH MAINTENANCE Final Result * [facility] DEXA AXIAL SKELETON (05/23/2020 5:08 PM EST) Anatomical Region Laterality Modality Mammography 05/23/2020 10:0 4 AM EST Narrative 05/23/2020 5:08 PM EST [facility] Diagnostic Imaging Department [address] [place] [address] Patient: ??MEME NARANJO E ?/Age/Sex: 1955 - 65 - F Unit#: ??[id number] ? Location/Status: ??SPDIMAM/REG CLI ? Mnemonic/Ordering Site: ??MAMDEXAAX/SPMAM Ordering Physician: ??RAJESH MORALES MD Talisha Dexa Axial Skeleton - 05/23/20 - 1140 History: Low estrogen state due to menopause. Comparison: 07/12/15 Findings: Bone densitometry is performed utilizing dual energy x-ray absorptiometry (DXA) in the [employer] unit. The lumbar spine and proximal femora are evaluated in the AP projection. The FRAX questionaire was completed. The results indicate low bone mass (osteopenia), with a right femoral neck T- score of -2.2. There have been small, statistically significant decreases in bone mineral density in the spine and bilateral total femurs since the previous study. ??The detailed DEXA report will be mailed to the referring physician's office. [employer] FRAX: 10-year Probability of Fracture: Major Osteoporotic 4.9 percent Hip 0.9 percent. IMPRESSION: Osteopenia. [id number] Dictating Physician: ??GABRIELLE JAMISON MD Electronically Signed by: ??GABRIELLE JAMISON MD Dic Date/Time: ??05/23/201706 Sign date/Time: ??05/23/201707 Procedure Note Gabrielle Jamison MD - 03/18/2022 [facility] Diagnostic Imaging Department [address] [place] [address] [id number] Patient: LOWE,MEME E /Age/Sex: 1955 - 65 - F Unit#: [id number] Location/Status: SPDIMAM/REG CLI Mnemonic/Ordering Site: MAMDEXAAX/SPMAM Ordering Physician: RAJESH MORALES MD [facility] Dexa Axial Skeleton - 05/23/20 - 1140 History: Low estrogen state due to menopause. Comparison: 07/12/15 Findings: Bone densitometry is performed utilizing dual energy x-ray absorptiometry(DXA) in the [employer] unit. The lumbar spine and proximal femora areevaluated in the AP projection. The FRAX questionaire was completed. The results indicate low bone mass (osteopenia), with a right femoral neckT- score of -2.2. There have been small, statistically significant decreasesin bone mineral density in the spine and bilateral total femurs since theprevious study. The detailed DEXA report will be mailed to the referringphysician's office. [employer] FRAX: 10-year Probability of Fracture: Major Osteoporotic 4.9percent Hip 0.9 percent. IMPRESSION: Osteopenia. [id number] Dictating Physician: GABRIELLE JAMISON MD Electronically Signed by: GABRIELLE JAMISON MD Dic Date/Time: 05/23/201706 Sign date/Time: 05/23/201707 Rajesh Morales MD IMG BI PROCEDURES Final Result from Last 3 Months or Most Recently Relevant to Health Maintenance Insurance [facility] MED[facility] Care Teams Belt And Link Assembly Supervisor Relationship Specialty Start Date End Date Rajesh Morales MD [address] [address] PCP - General Internal Medicine 01/29/24
== END 2024-08-04 11:16 | disposition home or self-care (01) ==
LOC: HO.HOS 10:32
PROVIDERS: PCP Internal Medicine; Visit Provider Physical Medicine & Rehabilitation
DX: G81.11 Spastic hemiplegia affecting right dominant side (principal); I69.351 Hemiplegia and hemiparesis following cerebral infarction affecting right dominant side
CPT/HCPCS: 99204; G2211

== ENCOUNTER → 2024-08-04 10:32 | Outpatient (BNVA) | payer OTHER, SELFPAY | PROVIDERS: PCP Internal Medicine; Visit Provider Physical Medicine & Rehabilitation | DX: I69.354 Hemiplegia and hemiparesis following cerebral infarction affecting left non-dominant side (principal) | CPT/HCPCS: 99202 ==

== ENCOUNTER → 2024-09-28 12:13 | Outpatient (BNV) | payer OTHER, SELFPAY | PROVIDERS: PCP Internal Medicine; Visit Provider Physical Medicine & Rehabilitation | DX: G81.11 Spastic hemiplegia affecting right dominant side (principal); I69.351 Hemiplegia and hemiparesis following cerebral infarction affecting right dominant side | CPT/HCPCS: 64642; 95874 ==

== ENCOUNTER 2024-09-28 13:37 | Outpatient (REF) | payer OTHER, SELFPAY ==
--- NOTE | 2024-09-28 12:13 | EMG_ITS ---
PROCEDURE PERFORMED: Botulinum toxin chemodenervation DIAGNOSIS:? 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 I69.359 Exam on 08/04/2024: Left elbow flexion has end range spasticity, Pinky 2 Tends to pronate left forearm, Pinky 2. Left wrist flexion not an issue appears like, wrist is extended. Left fingers are extended, but has spontaneous movement and tends to cross over.?? PROCEDURE: The procedure was explained to the patient/caregiver, and informed consent was obtained. The patient sat on bed. The upper extremity was cleansed with betadine in the usual sterile manner. A 26 gauge needle electrode was used. Muscle Units per site Number of sites Units per muscle left brachialis 50 1 50 left brachioradialis 50 1 50 left PT 50 1 50 TOXIN USED: Botox EMG-guidance was used during the injection. A total of 150 units injected. 50 units wastage. Vial size: 100 units per vial Dilution: 100 units per 1 ml of preservative free saline The patient tolerated the procedure well without complications. The patient was observed for 30 minutes, before being discharged with post procedure instructions. CODING: CPT code: 73193 1 ext, 1-4 muscles Wastage: JW Guidance code: 07841 EMG guidance for chemodenervation J code: Botox J0585 [facility] code: 0647-4558-13 Lot #: [id number] Expiration date: [facility]
--- OUTSIDE RECORDS SUMMARY | 2024-09-28 14:15 | XMS_ITS | Data Portability ---
Author Organization [employer] [facility], [place] [employer] [facility] Address [address] [place] [address] Care Team Providers Care Boiler Engineer Name Role Phone [facility] Referring Provider Assessment No assessment recorded. Plan of Treatment Reminders Order Date Submit Date Provider Last Modified By Organization Details Last Modified Time Details Appointments None recorded. Lab None recorded. Referral None recorded. Procedures None recorded. Surgeries None recorded. Imaging None recorded. Medication Orders codeine 10 mg-guaife nesin 100 mg/5 mL oral liquid 023 023 [email or web address] [id number], [address] [place], [address], 3 14:25:39 Patient TargetsNo targets recorded. Patient [...] Address Organization Details Last Updated DateTime 3 85182.8 56 g 18 /min 86 /min 157.48 [...] SNOMED-CT Code Diagnosis ICD10 Code Diagnosis Note [id number] Shea Mars MD Main - [facility] [address] [place] [phone] 03/09/2023 14:20:14 03/09/2023 14:26:34 Viral upper respiratory tract infection [id number] J06.9 runny eyes, nose, cough worse at [...] Altman Member ID Guarantor Name 03/09/2023 1 [facility] - DOS ON OR AFTER 2022 - DUAL ELIGIBLE - [facility] OPTIONS AND ONE CARE (MEDICARE REPLACEMENT/ADV ANTAGE - HMO) Meme Naranjo [id number] Meme Naranjo Notes Date Note Type Note Provider Name and Address Organization Details Recorded Time 03/09/2023 text/html [facility] Nursing Assessment: Chief Complaints: URI Allergies: Unknown Comments: Member reports having a cough/cold/mika estion - Denies GRAYSON and body aches - Denies fever x1 week - Yonathan Mars MD [address] [facility],[address], [place], [address], DAVID - [employer] 03/09/2023 14:26:31 OBGyn Episode No OBEpisode recorded.
--- OUTSIDE RECORDS SUMMARY | 2024-09-28 14:15 | XMS_ITS | Clinical Summary ---
Author Organization [facility] Address [address] [facility] [address] [place] [address] Phone Care Team Providers Care Roadway Designer Name Role Phone Maria Esther Morales MD Primary Care Provider [phone] Allergies No known active allergies Medications aspirin (ST ANNDINI) 81 MG EC tablet Take 1 tablet [...] THE EVENING 270 tablet 3 02/15/2024 Active cholecalciferol (VITAMIN D-3 SUPER STRENGTH) 50 MCG (1999) tablet Take 2,000 Units by mouth in the morning. 10/02/2023 Active Active Problems Problem Noted Date Diagnosed Date Proteinuria, not otherwise specified 10/20/2021 Cerebrovascular accident 10/20/2021 Vitamin D deficiency 10/17/2021 Hypertension 10/17/2021 Renal stone 10/17/2021 Hypercalcemia 10/17/2021 Hyperaldosteronism 10/17/2021 Hemiparesis 10/17/2021 Edema 10/17/2021 Stage 3b chronic kidney disease 10/17/2021 Anemia of chronic disease 10/17/2021 Hemiplegia, unspecified, affecting nondominant s tigist 02/29/2016 Resolved Problems Problem Noted Date Diagnosed Date Resolved Date Hypotensive episode 10/17/2021 10/21/19 22 Encounters Date Type Department Care Team Description 08/10/2024 9:20 AM EDT Office Visit [facility] [address] [phone] Daniel King MD Stage 3b chronic kidney disease (HCC) (Primary Dx); Proteinuria, not otherwise specified; Hypertension; Hypercalcemia; Hyperaldosteronism, not otherwise specified (HCC); Edema, not otherwise specified; Cerebrovascular accident (HCC); Anemia of chronic disease 08/10/2024 Orders Only [facility] [address] [address] Daniel King MD Stage 3b chronic kidney disease (HCC); Proteinuria, not otherwise specified; Hypertension; Hypercalcemia; Hyperaldosteronism, not otherwise specified (HCC); Cerebrovascular accident (HCC) from Last 3 Months Family History Medical History Relation Comments Kidney disease Child Gnl-Cmqgnelh-Qju Kidney Transplant Hypertension Mother Hypertension Sibling 1 [...] Sign Reading Time Taken Comments Blood Pressure 112/80 08/10/2024 9:15 AM EDT Pulse 77 08/10/2024 9:15 AM EDT Temperature - - Respiratory Rate 14 11/04/2018 12:0 0 PM EDT Oxygen Saturation 99% 08/10/2024 9:15 AM EDT Inhaled Oxygen Concentration - - Weight 51.2 kg (112 lb 12.8 oz) 08/10/2024 9:15 AM EDT Height 157.5 cm (5' 2 ) 02/11/2024 9:42 AM EST Body Mass Index 20.63 02/11/2024 9:42 AM EST Plan of Treatment Upcoming Encounters Date Type Department Care Team (Late st Contact Info) Description 02/06/2025 10:20 AM EST Office Visit [facility] [address] [phone] Daniel King MD [address] [phone] Health Maintenance Due Date Last Done Comments Breast Cancer Screening 1955 Colorectal Cancer Screening: Annual FOBT 2004 Colorectal Cancer Screening: Colonoscopy 2004 Colorectal Cancer Screening: Sigmoidoscopy 2004 Pneumococcal Vaccine: 50+ Ye ars (2 of 2 - PPSV23, PCV20, or PCV21) 11/13/2020 09/18/2020 Influenza Vaccine (Season Ended) 2024 Pneumococcal Vaccine: Peds ( 0 to 5 Years) and At-Risk Patients (6 to 49 Years) Discontinued 09/18/2020 Hepatitis B Vaccine Aged Out No longe r eligible based on patient's age to complete this topic Procedures Procedure Name Priority Date/Time Associated Diagnosis Comments PROTEIN / CREATININE RATIO, URINE Routine 08/05/2024 10:38 AM EDT Stage 3b chronic kidney disease (HCC) Proteinuria, not otherwise specified Hypertension Hypercalcemia Hyperaldosteronism , not otherwise specified (HCC) Cerebrovascular accident (HCC) LIPID PANEL W/RFLX TO DIRECT LDL Routine [...] (HCC) from Last 3 Months Results * (ABNORMAL) Protein, Total, Random Urine w/Creatinine (Protein/Creat Ratio) (08/05/2024 10:38 AM EDT) Protein, Ur 36 mg/dL [facility] Urine Protein/Creati nine Ratio 0.57(H) <=0.20 mg/mg creat [facility] Creatinine, Urine 63.0 mg/dL [facility] Urine specimen (specimen) Urine specimen obtained by clean catch procedure / Unknown 08/05/2024 10:38 AM EDT 08/05/2024 2:03 PM EDT Daniel King MD LAB URINE ORDERABLES Final Re sult BEBA [facility] [address] [place] [address] * Lipid Panel w/Rfl Direct LDL (08/03/2024 1:48 PM EDT) [facility] Cholesterol 117 0 - 200 mg/dL [facility] Triglycerides 71 0 - 150 mg/dL [facility] HDL 52 >=40 mg/dL [facility] LDL Calculated 51 0 - 100 mg/dL [facility] VLDL Cholesterol Emmanuel 14.2 mg/dL [facility] Total Qem-UFP-Scsq (LDL+VLDL) 65 <145 mg/dL [facility] Chol/HDL Ratio 2.3 0.0 - 4.4 [facility] 08/03/2024 1:48 PM EDT 08/03/2024 6:05 PM EDT us Daniel King MD LAB BLOOD ORDERABLES Final Re sult [facility] [address] [place] [address] * (ABNORMAL) CBC auto differential (08/03/2024 1:48 PM EDT) WBC 6.5 4.8 - 10.8 [facility] RBC 3.60(L) 3.80 - 4.80 M[facility] Hgb 11.3(L) 11.5 - 16.0 g/dL [facility] Hematocrit 34.8(L) 35.0 - 47.0 % [facility] MCV 96.9 79.0 - 98.0 FL [facility] MCH 31.5 27.0 - 32.0 pcg [facility] MCHC 32.5 32.0 - 37.0 g/dL [facility] RDW 12.2 11.0 - 15.0 % [facility] Platelets 169 130 - 400 K/[facility] MPV 11.0 7.0 - 11.0 [facility] nRBC Count 0.0 <1.0 % [facility] NRBC Absolute 0.00 <0.10 [facility] Bands Relative 51.3 % [facility] Lymphocyte Realative Percent 39.0 % [facility] Monocyte Relative Percent 6.3 % [facility] Eosinophil Relative Percent 2.5 % [facility] Basophils Relative Diff 0.6 % [facility] Immature Granulocytes 0.3 % [facility] Neutrophils Absolute 3.34 1.50 - 7.00 [facility] Lymphocytes Absolute 2.54 1.00 - 5.00 [facility] Monocytes Absolute 0.41 0.20 - 1.00 [facility] Eosinophil Absolute 0.16 0.00 - 0.50 [facility] Basophil ABS 0.04 0.00 - 0.20 [facility] Immature Grans (Absolute) 0.02 0.00 - 0.03 [facility] 08/03/2024 1:48 PM EDT 08/03/2024 6:05 PM EDT Daniel King MD LAB BLOOD ORDERABLES Final Re sult Performing Organization Address [facility]/ZIP Co de Phone Number [facility] [address] [place] [address] * Vitamin D 25 Hydroxy (08/03/2024 1:48 PM EDT) Vitamin D, 25-OH, Total 52.2 30.0 - 80.0 ng/mL [facility] Blood specimen (specimen) Venous blood / Unknown 08/03/2024 1:48 PM EDT 08/03/2024 6:05 PM EDT Daniel King MD LAB BLOOD ORDERABLES Final Re sult [facility] [address] [place] [address] * Uric Acid (08/03/2024 1:48 PM EDT) Uric Acid 5.7 3.1 - 7.8 mg/dL [facility] Blood specimen (specimen) Venous blood / Unknown 08/03/2024 1:48 PM EDT 08/03/2024 6:05 PM EDT us Daniel King MD LAB BLOOD ORDERABLES Final Re sult Performing Organization Address [facility] de Phone Number [facility] [address] [place] [address] * Phosphorus (08/03/2024 1:48 PM EDT) Phosphorus 3.1 2.5 - 4.5 mg/dL [facility] Blood specimen (specimen) Venous blood / Unknown 08/03/2024 1:48 PM EDT 08/03/2024 6:05 PM EDT us Daniel King MD LAB BLOOD ORDERABLES Final Re sult Performing Organization Address [facility] de Phone Number [facility] [address] [place] [address] * (ABNORMAL) PTH, Intact (08/03/2024 1:48 PM EDT) PTH 125.8(H) 18.5 - 88.0 pcg/mL [facility] Blood specimen (specimen) Venous blood / Unknown 08/03/2024 1:48 PM EDT 08/03/2024 6:05 PM EDT us Daniel King MD LAB BLOOD ORDERABLES Final Re sult Performing Organization Address [facility] de Phone Number [facility] [address] [place] [address] * (ABNORMAL) Magnesium (08/03/2024 1:48 PM EDT) Magnesium 1.8(L) 1.9 - 2.6 mg/dL [facility] Blood specimen (specimen) Venous blood / Unknown 08/03/2024 1:48 PM EDT 08/03/2024 6:05 PM EDT us Daniel King MD LAB BLOOD ORDERABLES Final Re sult Performing Organization Address [facility]/ZIP Co de Phone Number [facility] [address] [place] [address] * Hemoglobin A1c (08/03/2024 1:48 PM EDT) Hemoglobin A1C 4.8 <6.5 % [facility] Estimated Average Glucose 91 mg/dL [facility] Blood specimen (specimen) Venous blood / Unknown 08/03/2024 1:48 PM EDT 08/03/2024 6:05 PM EDT us Daniel King MD LAB BLOOD ORDERABLES Final Re sult Performing Organization Address [facility] de Phone Number [facility] [address] [place] [address] * (ABNORMAL) Comprehensive Metabolic Panel (08/03/2024 1:48 PM EDT) Pathologist [facility] Sodium 141 133 - 145 mmol/L [facility] Potassium 3.9 3.5 - 5.5 mmol/L [facility] Chloride 108 96 - 110 mmol/L [facility] Bicarbonate (CO2) 24 21 - 32 mmol/L [facility] Anion Gap 9 3 - 11 [facility] Glucose 82 70 - 100 mg/dL [facility] BUN 51(H) 5 - 25 mg/dL [facility] Creatinine Serum 1.66(H) 0.50 - 1.10 mg/dL [facility] eGFR 33(L) >=60 mL/min/1. 73m2 [facility] Comment:Calculation based on the Chronic Kidney Disease Epidemiology Collaboration (CKD-EPI) equation refit without adjustment for race. BUN/Creatinine Ratio 30.7 [facility] Calcium 9.7 8.5 - 10.5 mg/dL [facility] AST (SGOT) 21 10 - 42 unit/L [facility] ALT (SGPT) 18 10 - 60 unit/L [facility] Alkaline Phosphatase 100 42 - 121 unit/L [facility] Total Protein 7.4 6.0 - 8.0 g/dL [facility] Albumin 3.9 3.2 - 5.0 g/dL [facility] Total Bilirubin 0.6 0.0 - 1.4 mg/dL [facility] Blood specimen (specimen) Venous blood / Unknown 08/03/2024 1:48 PM EDT 08/03/2024 6:05 PM EDT us Daniel King MD LAB BLOOD ORDERABLES Final Re sult BEBA [facility] [address] [place] [address] from Last 3 Months Insurance [facility] ([id number]) [place] [phone] [facility] ([id number]) Care Teams Roadway Designer Relationship Specialty Start Date End Date Maria Esther Morales MD [address] [facility] [address] [place] [phone] PCP - General 04/09/20
--- OUTSIDE RECORDS SUMMARY | 2024-09-28 14:15 | XMS_ITS | Clinical Summary ---
Author Organization [facility] Address [address] [place] [address] Phone Care Team Providers Care Parent Partner Name Role Phone Rajesh Morales MD Primary Care Provider [phone] Allergies No known active allergies Medications baclofen (LIORESAL) 10 mg tablet Take 1 tablet (10 mg total) by mouth 3 (three) times a day. 09/18/2020 Active carBAMazepine (CARBATROL) 100 mg 12 hr capsule Take 1 capsule (100 mg total) by mouth 2 (two) times a day. 09/18/2020 Active carvediloL (COREG) 6.25 mg tablet Take 1 tablet (6.25 mg total) by mouth 2 (two) times a day with meals. 01/20/2023 Active cholecalciferol (VITAMIN D-3) 50 mcg (2,000 unit) tablet Take 1 tablet (2,000 Units total) by mouth 1 (one) time each day. 10/02/2023 Active ferrous sulfate 325 mg (65 mg elemental iron) tablet Take 1 tablet (325 mg total) by mouth 1 (one) time each day. 10/02/2023 Active tiZANidine (ZANAFLEX) 4 mg tablet Take 1 tablet (4 mg total) by mouth every 6 (six) hours if needed for muscle spasms. 12/19/2020 Active magnesium oxide (MAG-OX) 400 mg (241.3 elemental magnesium) tablet TAKE 1 TABLET BY MOUTH EVERY DAY 90 tablet 1 04/25/2024 Active chlorthalidone (HYGROTON) 25 mg tablet TAKE 1 TABLET BY MOUTH EVERY DAY 90 tablet 1 05/24/2024 Active lisinopriL (PRINIVIL,ZESTR IL) 30 mg tablet TAKE 1 TABLET BY MOUTH EVERY DAY 90 tablet 1 07/14/2024 Active atorvastatin (LIPITOR) 20 mg tablet TAKE 1 TABLET BY MOUTH EVERY DAY 90 tablet 1 07/14/2024 Active hydrALAZINE (APRESOLINE) 25 mg tablet TAKE 1 TABLET BY MOUTH TWICE A DAY 180 tablet 1 07/14/2024 Active aspirin 81 mg EC tablet TAKE 1 TABLET BY MOUTH EVERY DAY 90 tablet 1 07/14/2024 Active Active Problems Problem Noted Date Diagnosed Date Spastic hemiplegia of left d ominant side as late effect of cerebral infarction ([facility] V24, [facility] V28) 07/02/2024 CKD (chronic kidney disease) stage 3, GFR 30-59 ml/min ([facility] V24, [facility] V28) 09/18/2017 Hypertension 09/18/2017 Hemiplegia affecting nondomi nant side ([facility] V24, [facility] V28) 02/29/2016 Anemia in chronic kidney disease 02/26/2016 Vitamin D deficiency 07/24/2015 Osteopenia 07/12/2015 Immunizations Name Administration Dates Next Due Pneumococcal conjugate 13 va lent (Prevnar 13, PCV13) 2mo and older 09/18/2020 Surgical History Surgery Date Site/Laterality Comments TUBAL LIGATION PROCEDURE: HISTORICAL TUBAL LIGATION COLONOSCOPY PROCEDURE: HISTORICAL COLONOSCOPY Medical History Medical History Date Comments Anemia in chronic kidney disease 02/26/2016 DX:Anemia in chronic kidney disease CKD (chronic kidney disease) stage 3, GFR 30-59 ml/min ([facility] V24, [facility] V28) 09/18/2017 DX:CKD (chronic kidney disea se) stage 3, GFR 30-59 ml/min ([facility]) Hemiplegia affecting nondomi nant side ([facility] V24, [facility] V28) 02/29/2016 DX:Hemiplegia affecting non dominant side (HCC) Hypertension 09/18/2017 DX:Hypertension Osteopenia 07/12/2015 DX:Osteopenia Vitamin [...] 65 06/23/2024 11:30 AM EDT Temperature 36.8 C (98.2 F) 06/23/2024 11:30 AM EDT Respiratory Rate - - Oxygen Saturation 99% [...] AM EDT Office Visit Internal Medicine - [place] [address] [place] [address] Rajesh Morales MD [address] [place] [id number] Health Maintenance Due Date Last Done Comments DTaP,Tdap,and Td Vaccines (1 - Tdap) 1974 Zoster Vaccines (1 of 2) 1974 Pneumococcal Vaccine: 50+ Years (2 of 2 - PPSV23) 09/18/2021 09/18/2020 Colorectal Cancer Screening: Colonoscopy 03/08/2022 Falls Risk Assessment 03/08/2022 Hepatitis C Screening 03/08/2022 Social Influencers of Health Screening 03/08/2022 COVID-19 Vaccine ( season) 2023 02/05/2021, 07/05/2020, 06/07/2020 Depression Screening 07/21/2024 07/22/2023 Medicare Annual Wellness Visit 07/21/2024 07/22/2023 Influenza Vaccine (Season Ended) 2024 Hypertension/CHF/CAD Annual BMP Blood Test 08/03/2025 08/03/2024, 08/03/2024, 08/03/2024, Additional history exists Breast Cancer Screening 02/01/2026 02/02/20, 01/26/2023, 01/22/2022, Additional history exists Cholesterol Screening (Lipid Panel) 08/03/2029 08/03/2024, 08/03/2024, 12/25/2023, Additional history exists RSV Immunization Adult Patients (1 - 1-dose 75+ series) 2030 Osteoporosis Screening (Bone Density Screening) 04/19/2034 04/19/2024, [...] Name Priority Date/Time Associated Diagnosis Comments PROTEIN AND CREATININE WITH RATIO, URINE Routine 08/05/2024 10:38 AM EDT Chronic kidney disease (CKD) stage G3b/A1, moderately decreased glomerular filtration rate (GFR) between 30-44 mL/min/1.73 square meter and albuminuria creatinine ratio les* ([facility] V24, [facility] V28) Proteinuria Essential hypertension, malignant Hypercalcemia Hyperaldosteronism, unspecified ([facility] V24) Impending cerebrovascular accident (CMS/HCC V24, CMS/[facility] V28) CBC WITH AUTO DIFFERENTIAL Routine 08/03/2024 1:48 PM EDT Chronic kidney disease (CKD) stage G3b/A1, moderately decreased glomerular filtration rate (GFR) between 30-44 mL/min/1.73 square meter and albuminuria creatinine ratio les* (CMS/HCC V24, CMS/HCC V28) Proteinuria Essential hypertension, malignant Hypercalcemia Hyperaldosteronism, unspecified ([facility]/HCC V24) Impending cerebrovascular accident ([facility] V24, [facility] V28) HEMOGLOBIN A1C Routine 08/03/2024 1:48 PM EDT Chronic kidney disease (CKD) stage G3b/A1, moderately decreased glomerular filtration rate (GFR) between 30-44 mL/min/1.73 square meter and albuminuria creatinine ratio les* ([facility]/HCC V24, [facility] V28) Proteinuria Essential hypertension, malignant Hypercalcemia Hyperaldosteronism, unspecified ([facility] V24) Impending cerebrovascular accident ([facility] V24, [facility] V28) LIPID PANEL WITH REFLEX TO DIRECT LDL Routine 08/03/2024 1:48 PM EDT Chronic kidney disease (CKD) stage G3b/A1, moderately decreased glomerular filtration rate (GFR) between 30-44 mL/min/1.73 square meter and albuminuria creatinine ratio les* ([facility]/HCC V24, [facility] V28) Proteinuria Essential hypertension, malignant Hypercalcemia Hyperaldosteronism, unspecified ([facility]/HCC V24) Impending cerebrovascular accident ([facility] V24, [facility] V28) CBC AND DIFFERENTIAL Routine 08/03/2024 1:48 PM EDT Chronic kidney disease (CKD) stage G3b/A1, moderately decreased glomerular filtration rate (GFR) between 30-44 mL/min/1.73 square meter and albuminuria creatinine ratio les* ([facility]/HCC V24, CMS/HCC V28) Proteinuria Essential hypertension, malignant Hypercalcemia Hyperaldosteronism, unspecified (CMS/HCC V24) Impending cerebrovascular accident ([facility] V24, [facility] V28) VITAMIN D 25 HYDROXY Routine 08/03/2024 1:48 PM EDT Chronic kidney disease (CKD) stage G3b/A1, moderately decreased glomerular filtration rate (GFR) between 30-44 mL/min/1.73 square meter and albuminuria creatinine ratio les* (CMS/HCC V24, CMS/HCC V28) Proteinuria Essential hypertension, malignant Hypercalcemia Hyperaldosteronism, unspecified ([facility]/HCC V24) Impending cerebrovascular accident (CMS/HCC V24, CMS/HCC V28) PARATHYROID HORMONE INTACT Routine 08/03/2024 1:48 PM EDT Chronic kidney disease (CKD) stage G3b/A1, moderately decreased glomerular filtration rate (GFR) between 30-44 mL/min/1.73 square meter and albuminuria creatinine ratio les* ([facility]/HCC V24, CMS/HCC V28) Proteinuria Essential hypertension, malignant Hypercalcemia Hyperaldosteronism, unspecified ([facility]/HCC V24) Impending cerebrovascular accident ([facility] V24, [facility] V28) PHOSPHORUS Routine 08/03/2024 1:48 PM EDT Chronic kidney disease (CKD) stage G3b/A1, moderately decreased glomerular filtration rate (GFR) between 30-44 mL/min/1.73 square meter and albuminuria creatinine ratio les* ([facility]/HCC V24, CMS/HCC V28) Proteinuria Essential hypertension, malignant [...] square meter and albuminuria creatinine ratio les* ([facility] V24, [facility] V28) Proteinuria Essential hypertension, malignant Hypercalcemia Hyperaldosteronism, unspecified ([facility] V24) Impending cerebrovascular accident ([facility] V24, [facility] V28) COMPREHENSIVE METABOLIC PANEL Routine 08/03/2024 1:48 PM EDT Chronic kidney disease (CKD) stage G3b/A1, moderately decreased glomerular filtration rate (GFR) between 30-44 mL/min/1.73 square meter and albuminuria creatinine ratio les* ([facility] V24, [facility] V28) Proteinuria Essential hypertension, malignant Hypercalcemia Hyperaldosteronism, unspecified ([facility] V24) Impending cerebrovascular accident ([facility] V24, [facility] V28) MG MAMMO DIGITAL SCREENING W GALDINO BILAT Routine 02/02/2024 11:26 AM EST Encounter for screening mammogram for malignant neoplasm of breast DEPRESSION SCREENING Routine 07/22/2023 [facility] DEXA AXIAL SKELETON Routine 05/23/2020 5:08 PM EST Asymptomatic menopausal state from Last 3 Months or Most Recently Relevant to Health Maintenance Results * (ABNORMAL) Protein and creatinine with ratio, urine (08/05/2024 10:38 AM EDT) Protein, Urine 36 mg/dL LAB CHEMISTRY METHOD 08/05/2024 3:55 PM EDT [facility] Prot/Creat, Ur 0.57(H) <=0.20 mg/mg creat LAB CHEMISTRY METHOD 08/05/2024 3:55 PM T [facility] Creatinine, Urine 63.0 mg/dL LAB CHEMISTRY METHOD 08/05/2024 3:55 PM [facility] Urine Urine specimen obtained by clean catch procedure / Unknown Non-blood Collection / Unknown 08/05/2024 10:38 AM EDT 08/05/2024 10:38 AM EDT us Daniel King MD LAB URINE ORDERABLES Final Result [facility] [address] [place] [address], [place] [phone] * Lipid panel with reflex to direct LDL (08/03/2024 1:48 PM EDT) Cholesterol 117 0 - 200 mg/dL LAB CHEMISTRY METHOD 08/03/2024 7:22 PM EDT [facility] Triglycerides 71 0 - 150 mg/dL LAB CHEMISTRY METHOD 08/03/2024 7:22 PM [facility] HDL 52 >=40 mg/dL [facility]STR[facility]/03[facility]24 7[facility] LDL Calculated 51 0 - 100 mg/dL LAB CHEMISTRY METHOD 08/03/2024 7:22 PM EDT [facility] VLDL Cholesterol Emmanuel 14.2 mg/dL LAB CHEMISTRY METHOD 08/03/2024 7:22 PM EDT [facility] Non HDL Chol. (LDL+VLDL) 65 <145 mg/dL LAB CHEMISTRY METHOD 08/03/2024 7:22 PM [facility] Chol/HDL Ratio 2.3 0.0 - 4.4 LAB CHEMISTRY METHOD 08/03/2024 7:22 PM [facility] Blood Venous blood specimen / Unknown Venipuncture / Unknown 08/03/2024 1:48 PM EDT 08/03/2024 1:48 PM EDT us Daniel King MD LAB BLOOD ORDERABLES Final Result Performing Organization Address [facility]/ZIP Co de Phone Number [facility] [address] [place] [address], [place] [phone] * (ABNORMAL) CBC auto differential (08/03/2024 1:48 PM EDT) [facility] WBC 6.5 4.8 - 10.8 K/mcL LAB HEMETOLOGY METHOD 08/03/2024 6:22 PM [facility] RBC 3.60(L) 3.80 - 4.80 M/mcL LAB HEMETOLOGY METHOD 08/03/2024 6:22 PM [facility] Hemoglobin 11.3(L) 11.5 - 16.0 g/dL LAB HEMETOLOGY METHOD 08/03/2024 6:22 PM [facility] Hematocrit 34.8(L) 35.0 - 47.0 % LAB HEMETOLOGY METHOD 08/03/2024 6:22 PM [facility] MCV 96.9 79.0 - 98.0 FL LAB HEMETOLOGY METHOD 08/03/2024 6:22 PM [facility] MCH 31.5 27.0 - 32.0 pcg LAB HEMETOLOGY METHOD 08/03/2024 6:22 PM [facility] MCHC 32.5 32.0 - 37.0 g/dL LAB HEMETOLOGY METHOD 08/03/2024 6:22 PM [facility] RDW 12.2 11.0 - 15.0 % LAB HEMETOLOGY METHOD 08/03/2024 6:22 PM [facility] Platelets 169 130 - 400 K/mcL LAB HEMETOLOGY METHOD 08/03/2024 6:22 PM [facility] MPV 11.0 7.0 - 11.0 FL LAB HEMETOLOGY METHOD 08/03/2024 6:22 PM [facility] NRBC 0.0 <1.0 % LAB HEMETOLOGY METHOD 08/03/2024 6:22 PM [facility] NRBC Absolute 0.00 <0.10 K/mcL LAB HEMETOLOGY METHOD 08/03/2024 6:22 PM [facility] Neutrophils Relative 51.3 % LAB HEMETOLOGY METHOD 08/03/2024 6:22 PM [facility] Lymphocytes Relative 39.0 % LAB HEMETOLOGY METHOD 08/03/2024 6:22 PM [facility] Monocytes Relative 6.3 % LAB HEMETOLOGY METHOD 08/03/2024 6:22 PM [facility] Eosinophils Relative 2.5 % LAB HEMETOLOGY METHOD 08/03/2024 6:22 PM [facility] Basophils Relative 0.6 % LAB HEMETOLOGY METHOD 08/03/2024 6:22 PM [facility] Immature Granulocytes Relative 0.3 % LAB HEMETOLOGY METHOD 08/03/2024 6:22 PM [facility] Neutrophils Absolute 3.34 1.50 - 7.00 K/mcL LAB HEMETOLOGY METHOD 08/03/2024 6:22 PM [facility] Lymphocytes Absolute 2.54 1.00 - 5.00 K/mcL LAB HEMETOLOGY METHOD 08/03/2024 6:22 PM [facility] Monocytes Absolute 0.41 0.20 - 1.00 K/mcL LAB HEMETOLOGY METHOD 08/03/2024 6:22 PM [facility] Eosinophils Absolute 0.16 0.00 - 0.50 K/mcL LAB HEMETOLOGY METHOD 08/03/2024 6:22 PM [facility] Basophils Absolute 0.04 0.00 - 0.20 K/mcL LAB HEMETOLOGY METHOD 08/03/2024 6:22 PM [facility] Immature Granulocytes Absolute 0.02 0.00 - 0.03 K/mcL LAB HEMETOLOGY METHOD 08/03/2024 6:22 PM EDT [facility] Blood Venous blood specimen / Unknown Venipuncture / Unknown 08/03/2024 1:48 PM EDT 08/03/2024 1:50 PM EDT us Daniel King MD LAB BLOOD ORDERABLES Final Result Performing Organization Address City/[facility]/ZIP Co de Phone Number [facility] [address] [place] [address], [place] [phone] * Vitamin D 25 hydroxy (08/03/2024 1:48 PM EDT) Vit D, 25-Hydroxy 52.2 30.0 - 80.0 ng/mL LAB CHEMISTRY METHOD 08/03/2024 8:48 PM EDT [facility] Blood Venous blood specimen / Unknown Venipuncture / Unknown 08/03/2024 1:48 PM EDT 08/03/2024 1:48 PM EDT us Daniel King MD LAB BLOOD ORDERABLES Final Result Performing Organization Address City/[facility]/ZIP Co de Phone Number [facility] [address] [place] [address], [place] [phone] * Uric acid (08/03/2024 1:48 PM EDT) Uric Acid 5.7 3.1 - 7.8 mg/dL LAB CHEMISTRY METHOD 08/03/2024 7:22 PM EDT [facility] Blood Venous blood specimen / Unknown Venipuncture / Unknown 08/03/2024 1:48 PM EDT 08/03/2024 1:48 PM EDT us Daniel King MD LAB BLOOD ORDERABLES Final Result [facility] [address] [place] [address], [place] [phone] * Phosphorus (08/03/2024 1:48 PM EDT) Phosphorus 3.1 2.5 - 4.5 mg/dL LAB CHEMISTRY METHOD 08/03/2024 7:22 PM EDT [facility] Blood Venous blood specimen / Unknown Venipuncture / Unknown 08/03/2024 1:48 PM EDT 08/03/2024 1:48 PM EDT us Daniel King MD LAB BLOOD ORDERABLES Final Result Performing Organization Address City/[facility]/ZIP Co de Phone Number [facility] [address] [place] [address], * (ABNORMAL) Parathyroid hormone intact (08/03/2024 1:48 PM EDT) PTH 125.8(H) 18.5 - 88.0 pcg/mL LAB CHEMISTRY METHOD 08/03/2024 8:42 PM EDT [facility] Blood Venous blood specimen / Unknown Venipuncture / Unknown 08/03/2024 1:48 PM EDT 08/03/2024 1:48 PM EDT us Daniel King MD LAB BLOOD ORDERABLES Final Result [facility] [address] [place] [address], [place] [phone] * (ABNORMAL) Magnesium (08/03/2024 1:48 PM EDT) Magnesium 1.8(L) 1.9 - 2.6 mg/dL LAB CHEMISTRY METHOD 08/03/2024 7:22 PM EDT [facility] Blood Venous blood specimen / Unknown Venipuncture / Unknown 08/03/2024 1:48 PM EDT 08/03/2024 1:48 PM EDT us Daniel King MD LAB BLOOD ORDERABLES Final Result Performing Organization Address City/[facility]/ZIP Co de Phone Number [facility] [address] [place] [address], [place] [phone] * Hemoglobin A1c (08/03/2024 1:48 PM EDT) [facility] Hemoglobin A1C 4.8 <6.5 % LAB CHEMISTRY METHOD 08/03/2024 9:35 PM EDT [facility] Mean Bld Glu Estim. 91 mg/dL LAB CHEMISTRY METHOD 08/03/2024 9:35 PM EDT [facility] Blood Venous blood specimen / Unknown Venipuncture / Unknown 08/03/2024 1:48 PM EDT 08/03/2024 1:50 PM EDT us Daniel King MD LAB BLOOD ORDERABLES Final Result Performing Organization Address [facility]/ZIP Co de Phone Number [facility] [address] [place] [address], [place] [phone] * (ABNORMAL) Comprehensive metabolic panel (08/03/2024 1:48 PM EDT) [facility] Sodium 141 133 - 145 mmol/L LAB CHEMISTRY METHOD 08/03/2024 7:22 PM EDT [facility] Potassium 3.9 3.5 - 5.5 mmol/L LAB CHEMISTRY METHOD 08/03/2024 7:22 PM EDT [facility] Chloride 108 96 - 110 mmol/L LAB CHEMISTRY METHOD 08/03/2024 7:22 PM EDT [facility] CO2 24 21 - 32 mmol/L LAB CHEMISTRY METHOD 08/03/2024 7:22 PM EDT [facility] Anion Gap 9 3 - 11 LAB CHEMISTRY METHOD 08/03/2024 7:22 PM EDT [facility] Glucose 82 70 - 100 mg/dL LAB CHEMISTRY METHOD 08/03/2024 7:22 PM [facility] BUN 51(H) 5 - 25 mg/dL LAB CHEMISTRY METHOD 08/03/2024 7:22 PM [facility] Creatinine 1.66(H) 0.50 - 1.10 mg/dL LAB CHEMISTRY METHOD 08/03/2024 7:22 PM [facility] eGFR 33(L) >=60 mL/min/1. 73m2 LAB CHEMISTRY METHOD 08/03/2024 7:22 PM [facility] Comment:Calculation based on the Chronic Kidney Disease Epidemiology Collaboration (CKD-EPI) equation refit without adjustment for race. BUN/Creatinine Ratio 30.7 LAB CHEMISTRY METHOD 08/03/2024 7:22 PM [facility] Calcium 9.7 8.5 - 10.5 mg/dL LAB CHEMISTRY METHOD 08/03/2024 7:22 PM [facility] AST (SGOT) 21 10 - 42 unit/L LAB CHEMISTRY METHOD 08/03/2024 7:22 PM [facility] ALT (SGPT) 18 10 - 60 unit/L LAB CHEMISTRY METHOD 08/03/2024 7:22 PM [facility] Alkaline Phosphatase 100 42 - 121 unit/L LAB CHEMISTRY METHOD 08/03/2024 7:22 PM [facility] Total Protein 7.4 6.0 - 8.0 g/dL LAB CHEMISTRY METHOD 08/03/2024 7:22 PM [facility] Albumin 3.9 3.2 - 5.0 g/dL LAB CHEMISTRY METHOD 08/03/2024 7:22 PM [facility] Total Bilirubin 0.6 0.0 - 1.4 mg/dL LAB CHEMISTRY METHOD 08/03/2024 7:22 PM [facility] Blood Venous blood specimen / Unknown Venipuncture / Unknown 08/03/2024 1:48 PM EDT 08/03/2024 1:48 PM EDT us Daniel King MD LAB BLOOD ORDERABLES Final Result [facility] [address] [place] [address], [place] [phone] * MG Mammo Digital Screening w Galdino bilat (02/02/2024 11:26 AM EST) Anatomical Region Laterality Modality Breast Bilateral Mammography 02/02/2024 12:5 2 PM EST Impressions 02/02/2024 1:03 PM EST No mammographic evidence of malignancy. No suspicious interval change. Patient was unable to be optimally positioned. ASSESSMENT: BI-RADS 1: NEGATIVE RECOMMENDATION(S): 1: Routine screening mammogram BILATERAL in 1 year. -------- FINAL REPORT -------- Dictated By: Jase Montoya Dictated Date: 02/02/2024 12:52 ET Assigned Physician: Jase Montoya Reviewed and Electronically Signed By: Jase Montoya Signed Date: 02/02/2024 13:03 ET Workstation ID: [id number] Transcribed By: Self Edit Transcribed Date: 02/02/2024 12:52 ET Narrative 02/02/2024 1:03 PM EST EXAM: SCREENING MAMMOGRAPHY, BILATERAL HISTORY: SCREENING. No additional history. COMPARISON: 01/26/2023, 01/22/2022, 06/20/2020 TECHNIQUE: Synthesized CC and MLO projections of each breast. Tomosynthesis of each breast in the CC and MLO projections. The left MLO is suboptimal. The patient was unable to be optimally positioned (stroke). ADDITIONAL IMAGING: None Computer-aided detection was employed with the iCAD Quick Hang AI 3-D. TISSUE DENSITY: The breasts are heterogeneously dense, which may obscure small masses. (BI-RADS category C) FINDINGS: RIGHT BREAST: No suspicious mass. No suspicious calcification. No distortion. No additional suspicious right breast findings LEFT BREAST: No suspicious mass. No suspicious calcification. No distortion. No additional suspicious left breast findings Procedure [...] Computer-aided detection was employed with the iCAD profound AI 3-D. TISSUE DENSITY: The breasts are [...] year. -------- FINAL REPORT -------- Dictated By: Jaes Montoya Dictated Date: 02/02/2024 12:52 ET Assigned Physician: Jase Montoya Reviewed and Electronically Signed By: Jase Montoya Signed Date: 02/02/2024 13:03 ET Workstation ID: [id number] Transcribed By: Self Edit Transcribed Date: 02/02/2024 12:52 ET Rajesh Morales MD IMG BI PROCEDURES Final Result * Depression Screening (07/22/2023) Depression Screening Abstracted Historical Provider HEALTH MAINTENANCE Final Result * TALISHA DEXA AXIAL SKELETON (05/23/2020 5:08 PM EST) Anatomical Region Laterality Modality Mammography 05/23/2020 10:0 4 AM EST Narrative 05/23/2020 5:08 PM EST [facility] Diagnostic Imaging Department [address] [place] [id number] Patient: MEME NARANJO /Age/Sex: 1955 - 65 - F Unit#: [id number] Location/Status: SPDIMAM/REG CLI Mnemonic/Ordering Site: MAMDEXAAX/SPMAM Ordering Physician: RAJESH MORALES MD Talisha Dexa Axial Skeleton - 05/23/20 - 1140 History: Low estrogen state due to menopause. Comparison: 07/12/15 Findings: Bone densitometry is performed utilizing dual energy x-ray absorptiometry (DXA) in the Nyxoahig[employer]Blade unit. The lumbar spine and proximal femora are evaluated in the AP projection. The FRAX questionaire was completed. The results indicate low bone mass (osteopenia), with a right femoral neck T- score of -2.2. There have been small, statistically significant decreases in bone mineral density in the spine and bilateral total femurs since the previous study. The detailed DEXA report will be mailed to the referring physician's office. DualFemur FRAX: 10-year Probability of Fracture: Major Osteoporotic 4.9 percent Hip 0.9 percent. IMPRESSION: Osteopenia. [id number] Dictating Physician: GABRIELLE JAMISON MD Electronically Signed by: GABRIELLE JAMISON MD Dic Date/Time: 05/23/201706 Sign date/Time: 05/23/201707 Procedure Note Gabrielle Jamison MD - 03/18/2022 [facility] Diagnostic Imaging Department [address] [place], [place] [id number] Patient: MEME NARANJO /Age/Sex: 1955 - 65 - F Unit#: [id number] Location/Status: SPDIMAM/REG CLI Mnemonic/Ordering Site: MAMDEXAAX/SPMAM Ordering Physician: RAJESH MORALES MD Talisha Dexa Axial Skeleton - 05/23/20 - 1140 History: Low estrogen state due to menopause. Comparison: 07/12/15 Findings: Bone densitometry is performed utilizing dual energy x-ray absorptiometry(DXA) in the [employer] unit. The lumbar spine and proximal femora [...] Osteoporotic 4.9percent Hip 0.9 percent. IMPRESSION: Osteopenia. [id number] Dictating Physician: GABRIELLE JAMISON MD Electronically Signed by: GABRIELLE JAMISON MD Dic Date/Time: 05/23/201706 Sign date/Time: 05/23/201707 Rajesh Morales MD IMG BI PROCEDURES Final Result from Last 3 Months or Most Recently Relevant to Health Maintenance Insurance [facility] MEDICAID [facility] MEDICARE Member Subscriber Plan / Payer (Ef fective 2022-Present) Name:Meme Naranjo Relation to Subscriber:Self Name:Meme Naranjo Payer ID:[id number] Group ID:[id number] Type:Not on file Address: [address] [place] [address] Care Teams Parent Partner Relationship Specialty Start Date End Date Rajesh Morales MD 175 [facility] [address] [place] [address] PCP - General Internal Medicine 01/29/24
== END 2024-09-28 13:38 | disposition home or self-care (01) ==
LOC: HO.NEURO 13:37
PROVIDERS: PCP Internal Medicine; Visit Provider Physical Medicine & Rehabilitation
DX: I69.354 Hemiplegia and hemiparesis following cerebral infarction affecting left non-dominant side (principal); R25.2 Cramp and spasm
CPT/HCPCS: 64642; 64643; 95874; J0585

== ENCOUNTER 2024-12-09 10:25 | Outpatient (AMB) | payer OTHER, SELFPAY ==
--- NOTE | 2024-12-09 10:29 | MHC.OFFVIS ---
Intake Visit Reasons: OV- 2 month post Botox follow up Intake Note: eMme is a 69 year old female who presents today as a 2 month follow up from her Botox injection in her Left spastic hemiparesis, 09/28/24. At today's visit she states that the injection did help relieve the pain but started to wear off three weeks ago. She states that her left side pain started to increase in the past week. Patient would like to report that she fell at home and broke a bone in her left foot 10/26/24, she states that she was putting on her slippers that caused a slip & fall. She stayed at rehab for 2 weeks. Then had home PT until last week. Left foot not in pain anymore. She said she had neck and back xrays, no fractue seen. 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 Left upper extremity spasticity. Treated with botulinum toxin injections by Dr. Mercer until he retired. Last injection with Dr. Mercer 08/20/2023. Transferred to Dr. Mercado for the injections, who did injections 1-2, none for the last 5-[address] Mercado referred patient to in. Ambulatory, using a cane. Not driving. Needs assistance from ADMINISTRATIVE PROJECT COORDINATOR 17.5 hours/week - for meal prep, bathing, dressing. Mod I with toileting. Injection under me 08/04/2024. Injected 150 units total to left elbow flexors and pronator. Patient reports very good relief of the stiffness, pain and even range of motion after the injection. She started feeling the tightness again 2-3 weeks ago. Note that she is overdue for her botulinum toxin injection. She should have received her next injection in October but she was recuperating from her left foot fracture in rehab at that time. 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 Right fingers are extended, but has spontaneous movement and tends to cross over. Assessment & Plan Assessment & Plan (1) Right spastic hemiparesis: Code(s): G81.11 - Spastic hemiplegia affecting right dominant side Category: Medical (2) History of hemorrhagic stroke with residual hemiparesis: Code(s): I69.359 - Hemiplegia and hemiparesis following cerebral infarction affecting unspecified side Category: Medical Plan Very good improvement after 1st injection from me last July. She is overdue for her next injection. We will try to squeeze her in on ThursdayDecember 12, I have added extra hours accommodate. Plan to inject the same dose as previously, to the same muscles. Assessment and plan discussed with patient, and patient was agreeable. All questions were answered thoroughly. Shyla Burgos MD, FINESSE Board Certified, [place] [employer] and Rehabilitation (ABPMR) Board Certified, [place] [employer] Electrodiagnostic [employer] (ABEM) Coding Level of Care Code Est Pt Level 4 (79071) Diagnoses Right spastic hemiparesis G81.11 History of hemorrhagic stroke with residual hemiparesis I69.359
--- OUTSIDE RECORDS SUMMARY | 2024-12-09 11:57 | XMS_ITS | Encounter Summary ---
Author Organization [facility] Address [address] [place] [address] Care Team Providers Care Ice Handler Name Role Phone Maria Esther Morales MD Primary Care Provider [phone] Encounter Details Date Type Department Care Team (Late st Contact Info) Description 11/25/2024 Telephone Internal Medicine - [place] [address] [facility] [address] [place] [phone] Maria Esther Morales MD [address] [facility] [address] [place] [phone] Social History Tobacco Use Types Packs/Day Years Used Date Smoking Tobacco: Never Smokeless Tobacco: Never Alcohol Use Standard Drinks/Week Comments No 0 (1 standard drink = 0.6 oz pur e alcohol) Comments No Sex and Gender Information Value Date Recorded Sex Assigned at Female 01/18/2024 9:46 AM EDT Legal Sex Female 10:52 PM EST Gender Identity Female 01/18/2024 9:46 AM EDT Sexual Orientation Straight 01/29/2024 2: 45 PM EDT documented as of this encounter Functional Status * Are you deaf or do you have serious difficulty hearing? Answer Date of Assessment Author No 10/17/2024 2:20 AM EDT Michael Casey RN * Are you blind or do you have serious difficulty seeing, even when wearing glasses? Answer Date of Assessment Author No 10/17/2024 2:20 AM EDT Michale Casey RN * Do you have serious difficulty walking or climbing stairs? Answer Date of Assessment Author Yes 10/17/2024 2:20 AM EDT Michael Casey RN * Do you have serious difficulty dressing or bathing? Answer Date of Assessment Author Yes 10/17/2024 2:20 AM EDT Michael Casey RN * Because of a physical, mental, or emotional condition, do you have serious difficulty doing errandsalone such as visiting the doctor? Answer Date of Assessment Author No 10/17/2024 2:20 AM EDT Michael Casey RN documented as of this encounter Mental Status * Because of a physical, mental, or emotional condition, do you have serious difficulty concentrating, remembering, or making decisions? (5 years old or older) Answer Entry Date Author No 10/17/2024 2:20 AM EDT Michael Casey RN documented in this encounter Progress Notes * Lori Shipman - 11/25/2024 11:04 AM EDT Connie from [facility] - her visit this week one not twice as patient was not home today for physical therapy fyi documented in this encounter Plan of Treatment Upcoming Encounters Date Type Department Care Team (Late st Contact Info) Description 12/28/2024 11:15 AM EDT Office Visit Internal Medicine - [place] 175 [facility] [address] [place] [phone] Maria Esther Morales MD 175 [facility] [address] [place] [phone] 01/16/2025 3:15 PM EDT Office Visit Orthopedic Surgery - [place] [address] [facility] [address] [place] [phone] Ranjeet Vasquez DPM 175 [facility] [address] [place] [phone] documented as of this encounter Visit Diagnoses Not on filedocumented in this encounter Care Teams Ice Handler Relationship Specialty Start Date End Date Maria Esther Morales MD [address] [address] PCP - General Internal Medicine 01/29/24 documented as of this encounter
--- OUTSIDE RECORDS SUMMARY | 2024-12-09 11:57 | XMS_ITS | Encounter Summary ---
Author Organization [facility] Address [address] [place] [address] Care Team Providers Care Telecom Specialist Name Role Phone Maria Esther Morales MD Primary Care Provider [phone] Encounter Details Date Type Department Care Team (Late st Contact Info) Description 12/01/2024 Telephone Internal Medicine - [place] [address] [facility] [address] [place] [phone] Maria Esther Morales MD [address] [facility] [address] [place] [phone] Social History Tobacco Use Types Packs/Day Years [...] encounter Progress Notes * Lori Shipman - 12/01/2024 3:19 PM EDT Discharged from [facility]ational [facility] Patient met goals FYI documented in this encounter Plan of Treatment Upcoming Encounters Date Type Department Care Team (Late st Contact Info) Description 12/28/2024 11:15 AM EDT Office Visit Internal Medicine - [place] [address] [phone] Maria Esther Morales MD 175 [facility] [address] [place] [phone] 01/16/2025 3:15 PM EDT Office Visit Orthopedic Surgery - [place] [address] [address] Ranjeet Vasquez DPM [address] [address] documented as of this encounter Visit Diagnoses Not on filedocumented in this encounter Care Teams Telecom Specialist Relationship Specialty Start Date End Date Maria Esther Morales MD [address] [phone] PCP - General Internal Medicine 01/29/24 documented as of this encounter
--- OUTSIDE RECORDS SUMMARY | 2024-12-09 11:58 | XMS_ITS | Clinical Summary ---
Author Organization [facility] Address [address] [facility] [address] [place] [address] Phone Care Team Providers Care Special Agent Group Insurance Name Role Phone Maria Esther Morales MD Primary Care Provider [phone] Allergies No known active allergies Medications aspirin [...] before bedtime. 270 tablet 3 08/11/2022 Active cholecalciferol (VITAMIN D-3 SUPER STRENGTH) 50 MCG (2000 UT) tablet Take 2,000 Units by mouth in the morning. 10/02/2023 Active carvedilol (COREG) 6.25 MG tablet TAKE 1 TABLET BY MOUTH IN THE MORNING TAKE 2 TABLETS BY MOUTH IN THE EVENING 270 tablet 3 11/09/2024 Active cinacalcet (SENSIPAR) 30 MG tablet TAKE 1 TABLET BY MOUTH 1 TIME EACH DAY. 90 tablet 3 11/09/2024 Active Active Problems Problem Noted Date Diagnosed [...] Encounters Date Type Department Care Team Description 11/08/2024 Refill [facility] [address] [place] [address] Daniel King MD from Last 3 Months Family History Medical History Relation Comments Kidney disease Child Thk-Wrsbcswt-Ols Kidney Transplant Hypertension Mother Hypertension Sibling 1 [...] Upcoming Encounters Date Type Department Care Team ([facility] st Contact Info) Description 02/06/2025 10:20 AM EST Office Visit [facility] [address] [address] Daniel King MD [address] [phone] Health Maintenance Due Date Last Done Comments Breast Cancer Screening 1955 Colorectal Cancer Screening: Annual FOBT 2004 Colorectal Cancer Screening: Colonoscopy 2004 Colorectal Cancer Screening: Sigmoidoscopy 2004 Pneumococcal Vaccine: 50+ Ye ars (2 of 2 - PPSV23, PCV20, or PCV21) 11/13/2020 09/18/2020 Influenza Vaccine (#1) 2024 Pneumococcal Vaccine: Peds ( 0 to 5 Years) and At-Risk Patients (6 to 49 Years) Discontinued 09/18/2020 Hepatitis B Vaccine Aged Out No longe r eligible based on patient's age to complete this topic Insurance [facility] ([id number]) [place] [phone] [facility] ([id number]) [place] [phone] Care Teams Special Agent Group Insurance Relationship Specialty Start Date End Date Maria Esther Morales MD 175 [facility] [address] [place] [phone] PCP - General 04/09/20
--- OUTSIDE RECORDS SUMMARY | 2024-12-09 11:58 | XMS_ITS | Clinical Summary ---
Author Organization [facility] Address [address] [place] [address] Phone Care Team Providers Care Teaching Fellow Name Role Phone Rajesh Morales MD Primary Care Provider [phone] Allergies No known active allergies Medications carBAMazepine (CARBATROL) 100 mg 12 hr capsule Take 1 capsule (100 mg total) by mouth 2 (two) times a day. 1 Active carvediloL (COREG) 6.25 mg tablet Take 1 tablet (6.25 mg total) by mouth 1 (one) time each day in the morning. 3 Active cholecalciferol (VITAMIN D-3) 50 mcg (2,000 unit) tablet Take 1 tablet (2,000 Units total) by mouth 1 (one) time each day. 4 Active magnesium oxide (MAG-OX) 400 mg (241.3 elemental magnesium) tablet TAKE 1 TABLET BY MOUTH EVERY DAY 90 tablet 1 5 Active Additional Information Patient not taking.Reported on 11/09/2024 atorvastatin (LIPITOR) 20 mg tablet TAKE 1 TABLET BY MOUTH EVERY DAY 90 tablet 1 5 Active hydrALAZINE (APRESOLINE) 25 mg tablet TAKE 1 TABLET BY MOUTH TWICE A DAY 180 tablet 1 5 Active aspirin 81 mg EC tablet TAKE 1 TABLET BY MOUTH EVERY DAY 90 tablet 1 5 Active diaper,brief,pamela lt,disposable ([employer] Adult Brief) miscIndications: Urinary incontinence, unspecified type 1 each 1 (one) time each day. 225 each 11 5 Active chlorthalidone (HYGROTON) 25 mg tablet TAKE 1 TABLET BY MOUTH EVERY DAY 90 tablet 1 5 Active ferrous sulfate 325 mg (65 mg elemental iron) tablet TAKE 1 TABLET BY MOUTH EVERY DAY 90 tablet 1 5 Active lisinopriL (PRINIVIL,ZESTRI L) 30 mg tablet TAKE 1 TABLET BY MOUTH EVERY DAY 90 tablet 1 5 Active Active Problems Problem Noted Date Diagnosed Date Spastic hemiplegia of left d ominant side as late effect of cerebral infarction [place] [place] [facility] [place] 07/02/2024 Cerebrovascular accident (CVA) [place] [place], [facility] V28) 10/20/2021 Proteinuria 10/20/2021 Edema 10/17/2021 Hemiparesis [place] [place] [facility] [place] Hyperaldosteronism, unspecified [place] [place] Hypercalcemia 10/17/2021 Renal stone 10/17/2021 CKD (chronic kidney disease) stage 3, GFR 30-59 ml/min [place] [place], [facility] V28) 09/18/2017 Hypertension 09/18/2017 Hemiplegia affecting nondomi nant side ([facility] [place], [facility] V28) 02/29/2016 Anemia in chronic kidney disease 02/26/2016 Vitamin D deficiency 07/24/2015 Osteopenia 07/12/2015 Encounters Date Type Department Care Team Description 12/08/2024 Telephone Internal Medicine [facility] [address] [phone] Mallorie Diego [place] 12/01/2024 Telephone Internal Medicine [facility] [address] [phone] Rajesh Morales MD 11/25/2024 Telephone Internal Medicine [facility] [address] [phone] Rajesh Morales MD 11/16/2024 Telephone Internal Medicine [facility] [address] [phone] Mallorie Diego [place] 11/10/2024 Telephone Internal Medicine [facility] [address] [phone] Julius [place] 11/09/2024 10:00 AM EDT Office Visit Internal [facility] [address] [phone] Rajesh Morales MD Closed fracture of base of fifth metatarsal bone of left foot (Primary Dx); Stage 3b chronic kidney disease (CMS/HCC V24, CMS/HCC V28); Anemia in stage 3b chronic kidney disease (CMS/HCC V24, CMS/HCC V28); Primary hypertension 11/08/2024 [place] Internal Medicine [facility] [address] [phone] Mallorie [place] 11/08/2024 [place] Internal Medicine [facility] [address] [phone] Mallorie [place] 11/07/2024 3:45 PM EDT Office Visit Orthopedic Surgery [facility] [address] [phone] Ranjeet Vasquez, DPM Closed fracture of base of fifth metatarsal bone of left foot 11/02/2024 [place] Internal [facility] [address] [phone] Rajesh Morales MD 11/02/2024 [place] Internal Medicine [facility] [address] [phone] Rajesh Morales MD 11/01/2024 [place] Internal Medicine [facility] [address] [phone] Rajesh Morales MD 11/01/2024 [place] Internal Medicine [facility] [address] [phone] Rajesh Morales MD 10/28/2024 Lab Requisition [facility] - Main Lab [address] [place] [phone] Ivelisse Mckay MD Hypercalcemia; Hyperlipidemia, unspecified; Hypomagnesemia 10/26/2024 Lab Requisition [facility] - Main Lab [address] [place] [phone] Ivelisse Mckay MD Chronic kidney disease, unspecified 10/24/2024 Telephone Internal Medicine - [place] 175 [facility] [address] [place] [phone] Rajesh Morales MD 10/18/2024 Lab Requisition [facility] Lab [address] [place] [phone] Ivelisse Mckay MD Essential (primary) hypertension; Anemia, unspecified; Chronic kidney disease, stage 3 unspecified ([facility] V24, [facility] V28); Vitamin D deficiency, unspecified; Other specified disorders of bone density and structure, unspecified site; Spastic hemiplegia affecting left dominant side ([facility] V24, [facility] V28) 10/17/2024 12:11 AM EDT - 10/17/2024 2:05 PM EDT Emergency [facility] [address] [place] [address] Luan Metcalf MD Kokkinos, Erika, MD Closed fracture of base of fifth metatarsal bone of left foot (Primary Dx); Mobility impaired Discharge Disposition: Rehab Facility from Last 3 Months Immunizations Name Administration [...] kidney disease) stage 3, GFR 30-59 ml/min ([facility] V24, [facility] V28) 09/18/2017 DX:CKD (chronic kidney disea se) stage 3, GFR 30-59 ml/min ([facility]) Hemiplegia affecting nondomi nant side ([facility] V24, [facility] V28) 02/29/2016 DX:Hemiplegia affecting non dominant side ([facility]) Hypertension 09/18/2017 DX:Hypertension Osteopenia 07/12/2015 DX:Osteopenia Vitamin [...] Sign Reading Time Taken Comments Blood Pressure 126/82 11/09/2024 9:51 AM EDT Pulse 75 11/09/2024 9:51 AM EDT Temperature 36.6 C (97.9 F) 11/09/2024 9:51 AM EDT Respiratory Rate 18 11/09/2024 9:51 AM EDT Oxygen Saturation 98% 11/09/2024 9:51 AM EDT Inhaled Oxygen Concentration - - Weight 50.8 kg (112 lb) 11/09/2024 9:51 AM EDT Height 154.9 cm (5' 1 ) 11/09/2024 9:51 AM EDT Body Mass Index 21.16 11/09/2024 9:51 AM EDT Plan of Treatment Upcoming Encounters Date Type Department Care Team (Late st Contact Info) Description 12/28/2024 11:15 AM EDT Office Visit Internal Medicine - [place] [address] [phone] Rajesh Morales MD 175 [facility] 200 [place] [phone] 01/16/2025 3:15 PM EDT Office Visit Orthopedic Surgery - [place] 250 175 [facility] 250 [place] [phone] Ranjeet Vasquez, DPM 175 [facility] [address] [place] [address] Health Maintenance Due Date Last Done Comments DTaP,Tdap,and Td Vaccines (1 - Tdap) 1974 Zoster Vaccines (1 of 2) 1974 Pneumococcal Vaccine: 50+ Years (2 of 2 - PPSV23) 09/18/2021 09/18/2020 Colorectal Cancer Screening: Colonoscopy 03/08/2022 Falls Risk Assessment 03/08/2022 Hepatitis C Screening 03/08/2022 Social Influencers of Health Screening 03/08/2022 Depression Screening 03/30/2024 07/22/2023 Medicare Annual Wellness Visit 07/21/2024 07/22/2023 COVID-19 Vaccine ( season) 2024 02/05/2021, 07/05/2020, 06/07/2020 Influenza Vaccine (#1) 2024 Hypertension/CHF/CAD Annual BMP Blood Test 11/09/2025 11/09/2024, 10/28/2024, 10/26/2024, Additional history exists Breast Cancer Screening 02/01/2026 [...] Diagnosis Comments CBC WITH AUTO DIFFERENTIAL Routine 11/09/2024 10:19 AM EDT Stage 3b chronic kidney disease (CMS/HCC V24, CMS/HCC V28) Anemia in stage 3b chronic kidney disease (CMS/HCC V24, CMS/HCC V28) Primary hypertension BASIC METABOLIC PANEL Routine 11/09/2024 10:19 AM EDT Stage 3b chronic kidney disease (CMS/HCC V24, CMS/HCC V28) Anemia in stage 3b chronic kidney disease (CMS/HCC V24, CMS/HCC V28) Primary hypertension FERRITIN Routine 11/09/2024 10:19 AM EDT Stage 3b chronic kidney disease (CMS/HCC V24, CMS/HCC V28) Anemia in stage 3b chronic kidney disease (CMS/HCC V24, CMS/HCC V28) Primary hypertension IRON AND TIBC Routine 11/09/2024 10:19 AM EDT Stage 3b chronic kidney disease (CMS/HCC V24, CMS/HCC V28) Anemia in stage 3b chronic kidney disease (CMS/HCC V24, CMS/HCC V28) Primary hypertension CBC AND DIFFERENTIAL Routine 11/09/2024 10:19 AM EDT Stage 3b chronic kidney disease (CMS/HCC V24, CMS/HCC V28) Anemia in stage 3b chronic kidney disease (CMS/HCC V24, CMS/HCC V28) Primary hypertension XR FOOT 3+ VIEWS LEFT Routine 11/07/2024 4:23 PM EDT Closed fracture of base of fifth metatarsal bone of left foot BASIC METABOLIC PANEL Routine 10/28/2024 8:42 AM EDT Hypercalcemia Hyperlipidemia, unspecified Hypomagnesemia BASIC METABOLIC PANEL Routine 10/26/2024 6:43 AM EDT Chronic kidney disease, unspecified COMPLETE BLOOD COUNT Routine 10/26/2024 6:43 AM EDT Chronic kidney disease, unspecified COMPREHENSIVE METABOLIC PANEL Routine 10/18/2024 6:20 AM EDT Essential (primary) hypertension Anemia, unspecified Chronic kidney disease, stage 3 unspecified (CMS/HCC V24, CMS/HCC V28) Vitamin D deficiency, unspecified Other specified disorders of bone density and structure, unspecified site Spastic hemiplegia affecting left dominant side (CMS/HCC V24, CMS/HCC V28) COMPLETE BLOOD COUNT Routine 10/18/2024 6:20 AM EDT Essential (primary) hypertension Anemia, unspecified Chronic kidney disease, stage 3 unspecified (CMS/HCC V24, CMS/HCC V28) Vitamin D deficiency, unspecified Other specified disorders of bone density and structure, unspecified site Spastic hemiplegia affecting left dominant side (CMS/HCC V24, CMS/HCC V28) XR FOOT 3+ VIEWS LEFT STAT 10/17/2024 1:09 AM EDT XR ANKLE 3+ VIEWS LEFT STAT 10/17/2024 1:09 AM EDT LIPID PANEL WITH REFLEX TO DIRECT LDL [...] neoplasm of breast DEPRESSION SCREENING Routine 07/22/2023 [facility] DEXA AXIAL SKELETON Routine 05/23/2020 5:08 PM EST Asymptomatic menopausal state from Last 3 Months or Most Recently Relevant to Health Maintenance Results * (ABNORMAL) CBC auto differential (11/09/2024 10:19 AM EDT) WBC 5.8 4.8 - 10.8 K/mcL LAB HEMETOLOGY METHOD 11/09/2024 2:38 PM EDT [facility] RBC 3.40(L) 3.80 - 4.80 M/mcL LAB [facility] Hemoglobin 10.7(L) 11.5 - 16.0 g/dL LAB HEMETOLOGY METHOD [facility]24 [facility] Hematocrit 33.7(L) 35.0 - 47.0 % LAB HEMETOLOGY METHOD 11/09[facility]2024 [facility] MCV 98.3(H) 79.0 - 98.0 FL LAB HEMETOLOGY METHOD 11/09[facility]2024 [facility] MCH 31.2 27.0 - 32.0 pcg LAB HEMETOLOGY METHOD [facility]24 [facility] MCHC 31.8(L) 32.0 - 37.0 g/dL LAB HEMETOLOGY METHOD 11/09/2024 2:38 PM [facility] RDW 12.8 11.0 - 15.0 % LAB HEMETOLOGY METHOD 11/09/2024 2:38 PM [facility] Platelets 195 130 - 400 K/mcL LAB HEMETOLOGY METHOD 11/09[facility]2024 [facility] MPV 10.5 7.0 - 11.0 FL LAB HEMETOLOGY METHOD 11/09[facility]2024 [facility] NRBC 0.0 <1.0 % LAB HEMETOLOGY METHOD 11/09/2024 2:38 PM [facility] NRBC Absolute 0.00 <0.10 K/mcL LAB HEMETOLOGY METHOD 11/09/2024 2:38 PM [facility] Neutrophils Relative 65.4 % LAB HEMETOLOGY METHOD 11/09/2024 2:38 PM [facility] Lymphocytes Relative 22.3 % LAB HEMETOLOGY METHOD 11/09/2024 2:38 PM [facility] Monocytes Relative 7.8 % LAB HEMETOLOGY METHOD 11/09/2024 2:38 PM [facility] Eosinophils Relative 3.1 % LAB HEMETOLOGY METHOD 11/09/2024 2:38 PM [facility] Basophils Relative 0.7 % LAB HEMETOLOGY METHOD 11/09/2024 2:38 PM [facility] Immature Granulocytes Relative 0.7 % LAB HEMETOLOGY METHOD 11/09/2024 2:38 PM [facility] Neutrophils Absolute 3.76 1.50 - 7.00 K/mcL LAB HEMETOLOGY METHOD 11/09/2024 2:38 PM [facility] Lymphocytes Absolute 1.28 1.00 - 5.00 K/mcL LAB HEMETOLOGY METHOD 11/09/2024 2:38 PM [facility] Monocytes Absolute 0.45 0.20 - 1.00 K/mcL LAB HEMETOLOGY METHOD 11/09/2024 2:38 PM [facility] Eosinophils Absolute 0.18 0.00 - 0.50 K/mcL LAB HEMETOLOGY METHOD [facility]09[facility]24 [facility] Basophils Absolute 0.04 0.00 - 0.20 K/mcL LAB HEMETOLOGY METHOD 11/09/2024 2:38 PM EDT [facility] Immature Granulocytes Absolute 0.04(H) 0.00 - 0.03 K/mcL LAB HEMETOLOGY METHOD 11/09/2024 2:38 PM EDT [facility] Blood Venous blood specimen / Unknown Venipuncture / Unknown 11/09/2024 10:19 AM EDT 11/09/2024 10:23 AM EDT us Rajesh Morales MD LAB BLOOD ORDERABLES Final Res ult [facility] [address] [place] [address], [place] [phone] * (ABNORMAL) Iron and TIBC (11/09/2024 10:19 AM EDT) Iron 59 40 - 150 mcg/dL LAB CHEMISTRY METHOD 11/09/2024 4:54 PM EDT [facility] TIBC 241(L) 250 - 450 mcg/dL LAB CHEMISTRY METHOD 11/09/2024 4:54 PM EDT [facility] Iron Saturation 24 15 - 50 % LAB CHEMISTRY METHOD 11/09/2024 4:54 PM EDT [facility] Blood Venous blood specimen / Unknown Venipuncture / Unknown 11/09/2024 10:19 AM EDT 11/09/2024 10:23 AM EDT us Rajesh Morales MD LAB BLOOD ORDERABLES Final Res ult [facility] [address] [place] [address], [place] [phone] * (ABNORMAL) Ferritin (11/09/2024 10:19 AM EDT) Ferritin 255(H) 8 - 252 ng/mL LAB CHEMISTRY METHOD 11/09/2024 4:55 PM EDT [facility] Blood Venous blood specimen / Unknown Venipuncture / Unknown 11/09/2024 10:19 AM EDT 11/09/2024 10:23 AM EDT us Rajesh Morales MD LAB BLOOD ORDERABLES Final Res ult [facility] [address] [place] [address], [place] [phone] * (ABNORMAL) Basic metabolic panel (11/09/2024 10:19 AM EDT) Only the most recent of3 resultswithin the time period is included. [facility] Sodium 139 133 - 145 mmol/L LAB CHEMISTRY METHOD 11/09/2024 4:54 PM [facility] Potassium 4.4 3.5 - 5.5 mmol/L LAB CHEMISTRY METHOD 11/09/2024 4:54 PM [facility] Chloride 108 96 - 110 mmol/L LAB CHEMISTRY METHOD 11/09/2024 4:54 PM [facility] CO2 28 21 - 32 mmol/L LAB CHEMISTRY METHOD 11/09/2024 4:54 PM [facility] Anion Gap 3 3 - 11 LAB CHEMISTRY METHOD 11/09/2024 4:54 PM [facility] Glucose 80 70 - 100 mg/dL LAB CHEMISTRY METHOD 11/09/2024 4:54 PM [facility] BUN 35(H) 5 - 25 mg/dL LAB CHEMISTRY METHOD 11/09/2024 4:54 PM [facility] Creatinine 1.50(H) 0.50 - 1.10 mg/dL LAB CHEMISTRY METHOD 11/09/2024 4:54 PM [facility] eGFR 38(L) >=60 mL/min/1. 73m2 LAB CHEMISTRY METHOD 11/09/2024 4:54 PM EDT [facility] Comment:Calculation based on the Chronic Kidney Disease Epidemiology Collaboration (CKD-EPI) equation refit without adjustment for race. BUN/Creatinine Ratio 23.3 LAB CHEMISTRY METHOD 11/09/2024 4:54 PM EDT [facility] Calcium 10.3 8.5 - 10.5 mg/dL LAB CHEMISTRY METHOD 11/09/2024 4:54 PM EDT [facility] Blood Venous blood specimen / Unknown Venipuncture / Unknown 11/09/2024 10:19 AM EDT 11/09/2024 10:23 AM EDT Rajesh Morales MD LAB BLOOD ORDERABLES Final Res ult [facility] [address] [place] [address], * XR Foot 3+ Views Left (11/07/2024 4:23 PM EDT) Only the most recent of2 resultswithin the time period is included. Anatomical Region Laterality Modality Lower Extremities, Foot Left Computed Radiography Narrative 11/07/2024 5:33 PM EDT Left foot 3 views Fracture fifth metatarsal base minimally displaced involving the tuberosity of the fifth metatarsal zone 1 fracture Ranjeet Vasquez DPM IMG XR PROCEDURES Final R esult * (ABNORMAL) Complete blood count (10/26/2024 6:43 AM EDT) Only the most recent of2 resultswithin the time period is included. WBC 5.0 4.8 - 10.8 K/[facility] LAB HEMETOLOGY METHOD 10/26/2024 8:50 AM EDT [facility] RBC 3.00(L) 3.80 - 4.80 M/[facility] LAB HEMETOLOGY METHOD 10/26/2024 8:50 AM EDT [facility] Hemoglobin 9.5(L) 11.5 - 16.0 g/dL LAB HEMETOLOGY METHOD 10/26/2024 8:50 AM [facility] Hematocrit 28.0(L) 35.0 - 47.0 % LAB HEMETOLOGY METHOD 10/26/2024 8:50 AM T [facility] MCV 93.3 79.0 - 98.0 FL LAB HEMETOLOGY METHOD 10/26/2024 8:50 AM EDT [facility] MCH 31.7 27.0 - 32.0 pcg LAB HEMETOLOGY METHOD 10/26/2024 8:50 AM [facility] MCHC 33.9 32.0 - 37.0 g/dL LAB HEMETOLOGY METHOD 10/26/2024 8:50 AM [facility] RDW 12.3 11.0 - 15.0 % LAB HEMETOLOGY METHOD 10/26/2024 8:50 AM [facility] Platelets 155 130 - 400 K/mcL LAB HEMETOLOGY METHOD 10/26/2024 8:50 AM [facility] MPV 10.2 7.0 - 11.0 FL LAB HEMETOLOGY METHOD 10/26/2024 8:50 AM [facility] NRBC 0.0 <1.0 % LAB HEMETOLOGY METHOD 10/26/2024 8:50 AM [facility] NRBC Absolute 0.00 <0.10 K/mcL LAB HEMETOLOGY METHOD 10/26/2024 8:50 AM [facility] Blood Venous blood specimen / Unknown Venipuncture / Unknown 10/26/2024 6:43 AM EDT 10/26/2024 8:30 AM EDT Ivelisse Mckay MD LAB BLOOD ORDERABLES Final Resul t [facility] [address] [place] [address], * (ABNORMAL) Comprehensive metabolic panel (10/18/2024 6:20 AM EDT) Sodium 141 133 - 145 mmol/L LAB CHEMISTRY METHOD 10/18/2024 4:06 PM [facility] Potassium 3.5 3.5 - 5.5 mmol/L LAB CHEMISTRY METHOD 10/18/2024 4:06 PM [facility] Chloride 109 96 - 110 mmol/L LAB CHEMISTRY METHOD 10/18/2024 4:06 PM [facility] CO2 25 21 - 32 mmol/L LAB CHEMISTRY METHOD 10/18/2024 4:06 PM [facility] Anion Gap 7 3 - 11 LAB CHEMISTRY METHOD 10/18/2024 4:06 PM [facility] Glucose 75 70 - 100 mg/dL LAB CHEMISTRY METHOD 10/18/2024 4:06 PM [facility] BUN 54(H) 5 - 25 mg/dL LAB CHEMISTRY METHOD 10/18/2024 4:06 PM [facility] Creatinine 2.28(H) 0.50 - 1.10 mg/dL LAB CHEMISTRY METHOD 10/18/2024 4:06 PM [facility] eGFR 23(L) >=60 mL/min/1. 73m2 LAB CHEMISTRY METHOD 10/18/2024 4:06 PM [facility] Comment:Calculation based on the Chronic Kidney Disease Epidemiology Collaboration (CKD-EPI) equation refit without adjustment for race. BUN/Creatinine Ratio 23.7 LAB CHEMISTRY METHOD 10/18/2024 4:06 PM [facility] Calcium 9.1 8.5 - 10.5 mg/dL LAB CHEMISTRY METHOD 10/18/2024 4:06 PM EDT [facility] AST (SGOT) 14 10 - 42 unit/L LAB CHEMISTRY METHOD 10/18/2024 4:06 PM EDT [facility] ALT (SGPT) 14 10 - 60 unit/L LAB CHEMISTRY METHOD 10/18/2024 4:06 PM EDT [facility] Alkaline Phosphatase 90 42 - 121 unit/L LAB CHEMISTRY METHOD 10/18/2024 4:06 PM EDT [facility] Total Protein 6.5 6.0 - 8.0 g/dL LAB CHEMISTRY METHOD 10/18/2024 4:06 PM EDT [facility] Albumin 3.6 3.2 - 5.0 g/dL LAB CHEMISTRY METHOD 10/18/2024 4:06 PM EDT [facility] Total Bilirubin 0.5 0.0 - 1.4 mg/dL LAB CHEMISTRY METHOD 10/18/2024 4:06 PM EDT [facility] Blood Venous blood specimen / Unknown Venipuncture / Unknown 10/18/2024 6:20 AM EDT 10/18/2024 11:15 AM EDT Ivelisse Mckay MD LAB BLOOD ORDERABLES Final Resul t [facility] [address] [place] [address], * XR Ankle 3+ Views Left (10/17/2024 1:09 AM EDT) Anatomical Region Laterality Modality Lower Extremities, Ankle Left Radiogr aphic Imaging 10/17/2024 7:55 AM EDT Impressions 10/17/2024 7:56 AM EDT Minimally displaced fracture of the base of the fifth metatarsal. Code 05083 -------- FINAL REPORT -------- Dictated By: Alexandr May Dictated Date: 10/17/2024 07:55 ET Assigned Physician: Alexandr May Reviewed and Electronically Signed By: Alexandr May Signed Date: 10/17/2024 07:56 ET Workstation ID: [id number] Transcribed By: Self Edit Transcribed Date: 10/17/2024 07:55 ET Narrative 10/17/2024 7:56 AM EDT HISTORY: The patient is a 69-year-old female with left ankle pain following a fall. FINDINGS: AP, lateral, and oblique views of the left ankle are obtained. The study demonstrates a minimally displaced fracture of the base of the fifth metatarsal. No other fracture is seen and there is no dislocation. Mild soft tissue swelling overlies the lateral malleolus. Atherosclerotic arterial calcification is noted. Procedure Note Alexandr May MD - 10/17/2024 HISTORY: The patient is a 69-year-old female with left ankle painfollowing a fall. FINDINGS: AP, lateral, and oblique views of the left ankle are obtained.The study demonstrates a minimally displaced fracture of the base of thefifth metatarsal. No other fracture is seen and there is no dislocation.Mild soft tissue swelling overlies the lateral malleolus. Atheroscleroticarterial calcification is noted. IMPRESSION: Minimally displaced fracture of the base of the fifth metatarsal. Code 27031 -------- FINAL REPORT -------- Dictated By: Alexandr Mya Dictated Date: 10/17/2024 07:55 ET Assigned Physician: Alexandr May Reviewed and Electronically Signed By: Alexandr May Signed Date: 10/17/2024 07:56 ET Workstation ID: [id number] Transcribed By: Self Edit Transcribed Date: 10/17/2024 07:55 ET us Luan Metcalf MD IMG XR PROCEDURES Final R esult * Lipid panel with reflex to direct LDL (08/03/2024 1:48 PM EDT) [facility] Cholesterol 117 0 - 200 mg/dL LAB CHEMISTRY METHOD 08/03/2024 7:22 PM EDT [facility] Triglycerides 71 0 - 150 mg/dL LAB CHEMISTRY METHOD 08/03/2024 7:22 PM EDT [facility] HDL 52 >=40 mg/dL LAB CHEMISTRY METHOD 08/03/2024 7:22 PM EDT [facility] LDL Calculated 51 0 - 100 mg/dL LAB CHEMISTRY METHOD 08/03/2024 7:22 PM EDT [facility] VLDL Cholesterol Emmanuel 14.2 mg/dL LAB CHEMISTRY METHOD 08/03/2024 7:22 PM EDT [facility] Non HDL Chol. (LDL+VLDL) 65 <145 mg/dL LAB CHEMISTRY METHOD 08/03/2024 7:22 PM T [facility] Chol/HDL Ratio 2.3 0.0 - 4.4 LAB CHEMISTRY METHOD 08/03/2024 7:22 PM T [facility] Blood Venous blood specimen / Unknown Venipuncture / Unknown 08/03/2024 1:48 PM EDT 08/03/2024 1:48 PM EDT us Daniel King MD LAB BLOOD ORDERABLES Final Result [facility] [address] [place] [address], [place] [phone] * MG Mammo Digital Screening w Galdino [...] Signed Date: 02/02/2024 13:03 ET Workstation ID: [id number] Transcribed By: Self Edit Transcribed Date: 02/02/2024 [...] None Computer-aided detection was employed with the [employer] AI 3-D. TISSUE DENSITY: The breasts are [...] None Computer-aided detection was employed with the [employer] AI 3-D. TISSUE DENSITY: The breasts are [...] Signed Date: 02/02/2024 13:03 ET Workstation ID: [id number] Transcribed By: Self Edit Transcribed Date: 02/02/2024 12:52 ET Rajesh Morales MD IMG BI PROCEDURES Final Result * Depression Screening (07/22/2023) Depression Screening Abstracted us Historical Provider HEALTH MAINTENANCE Final Result * [facility] DEXA AXIAL SKELETON (05/23/2020 5:08 PM EST) Anatomical Region Laterality Modality Mammography 05/23/2020 10:0 4 AM EST Narrative 05/23/2020 5:08 PM EST [facility] Diagnostic Imaging Department [address] [place] [address] Patient: ELIASBridgetMEME /Age/Sex: 1955 - 65 - F Unit#: [id number] Location/Status: [facility] CLI [facility]emonic[facility] Ordering Physician: RAJESH MORALES MD [facility] Dexa Axial Skeleton - 05/23/201139 History: Low estrogen state due to menopause. Comparison: 07/12/15 Findings: Bone densitometry is performed utilizing dual energy x-ray absorptiometry (DXA) in the Kayentis unit. The lumbar spine and proximal femora [...] 4.9 percent Hip 0.9 percent. IMPRESSION: Osteopenia. [id number] Dictating Physician: GABRIELLE JAMISON MD Electronically Signed by: GABRIELLE JAMISON MD Dic Date/Time: 05/23/201706 Sign date/Time: 05/23/201707 Procedure Note Gabrielle Jamison MD - 03/18/2022 [facility] Diagnostic Imaging Department [address] [place] [address] Patient: MEME NARANJO Bridget /Age/Sex: 1955 - 65 - F Unit#: [id number] Location/Status: [facility] Mnemonic[facility] Ordering Physician: RAJESH MORALES MD [facility] Dexa Axial Skeleton - 05/23/20 114 History: Low estrogen state due to menopause. Comparison: 07/12/15 Findings: Bone densitometry is performed utilizing dual energy x-ray absorptiometry(DXA) in the Kayentis unit. The lumbar spine and proximal femora [...] Osteoporotic 4.9percent Hip 0.9 percent. IMPRESSION: Osteopenia. [id number] Dictating Physician: GABRIELLE JAMISON MD Electronically Signed by: GABRIELLE JAMISON MD Dic Date/Time: 05/23/201706 Sign date/Time: 05/23/201707 [facility] Andrew PRAKASH IMG BI PROCEDURES Final Result from Last 3 Months or Most Recently Relevant to Health Maintenance Insurance [employer] MEDICARE Member Subscriber Plan / Payer (Ef fective 2022-Present) Name:Meme Naranjo Relation to Subscriber:Self Name:MarcellaSiriane Bridget Payer ID:[id number] Group ID:[id number] Type:Not on file Address: [place] [address] [place] [address] [phone] Advance Directives Documents on File Type Date Recorded Patient Field Servicer Expl anation Advance Directives and Living Will 10/17/2024 10:32 AM [facility] * Full Code - Confirmed (Latest Code Status on File) Date Activated Date Inactivated Comments 10/17/2024 5:47 AM 10/17/2024 4:[address] atus was ascertained in the following way: Code status discussion: discussion with patient To update the patient's code status, place a code status order. Do not modify or discontinue any currently active code status orders. Healthcare Agents on File Name Relationship Healthcare Agent Relationshi p Communication Ryland [facility] Care Agent Norberto Naranjo Relative First Alternate Health Care Agent Care Teams Teaching Fellow Relationship Specialty Start Date End Date Rajesh Morales MD [address] [place] [phone] PCP - General Internal Medicine 01/29/24
--- OUTSIDE RECORDS SUMMARY | 2024-12-09 11:58 | XMS_ITS | Encounter Summary ---
Author Organization [facility] Address [address] [place] [address] Care Team Providers Care Claims Coordinator Name Role Phone Maria Esther Morales MD Primary Care Provider [phone] Encounter Details Date Type Department Care Team (Late st Contact Info) Description 10/26/2024 Lab Requisition [facility] - Main Lab 299 [facility] [place] [phone] Ivelisse Mckay MD [address] [place] [address] Chronic kidney disease, unspecified Social History Tobacco Use Types Packs/Day Years [...] Michael Casey RN documented in this encounter Plan of Treatment Upcoming Encounters Date Type Department Care Team (Late st Contact Info) Description 12/28/2024 11:15 AM EDT Office Visit Internal Medicine - [place] 175 [facility] 200 [place] [address] Maria Esther Morales MD 175 [facility] 200 [place] [phone] 01/16/2025 3:15 PM EDT Office Visit Orthopedic Surgery - [place] [address] [phone] Ranjeet Vasquez DPM [address] [phone] documented as of this encounter Procedures Procedure Name Priority Date/Time Associated Diagnosis Comments COMPLETE BLOOD COUNT Routine 10/26/2024 6:43 AM EDT Chronic kidney disease, unspecified BASIC METABOLIC PANEL Routine 10/26/2024 6:43 AM EDT Chronic kidney disease, unspecified documented in this encounter Results * (ABNORMAL) Basic metabolic panel (10/26/2024 6:43 AM EDT) Sodium 140 133 - 145 mmol/L LAB CHEMISTRY METHOD 10/26/2024 9:54 AM [facility] Potassium 3.1(L) 3.5 - 5.5 mmol/L LAB CHEMISTRY METHOD 10/26/2024 9:54 AM [facility] Chloride 109 96 - 110 mmol/L LAB CHEMISTRY METHOD 10/26/2024 9:54 AM [facility] CO2 25 21 - 32 mmol/L LAB CHEMISTRY METHOD 10/26/2024 9:54 AM [facility] Anion Gap 6 3 - 11 LAB CHEMISTRY METHOD 10/26/2024 9:54 AM [facility] Glucose 76 70 - 100 mg/dL LAB CHEMISTRY METHOD 10/26/2024 9:54 AM [facility] BUN 43(H) 5 - 25 mg/dL LAB CHEMISTRY METHOD 10/26/2024 9:54 AM [facility] Creatinine 1.53(H) 0.50 - 1.10 mg/dL LAB CHEMISTRY METHOD 10/26/2024 9:54 AM [facility] eGFR 37(L) >=60 mL/min/1. 73m2 LAB CHEMISTRY METHOD 10/26/2024 9:54 AM [facility] Comment:Calculation based on the Chronic Kidney Disease Epidemiology Collaboration (CKD-EPI) equation refit without adjustment for race. BUN/Creatinine Ratio 28.1 LAB CHEMISTRY METHOD 10/26/2024 9:54 AM [facility] Calcium 9.7 8.5 - 10.5 mg/dL LAB CHEMISTRY METHOD 10/26/2024 9:54 AM [facility] Blood Venous blood specimen / Unknown Venipuncture / Unknown 10/26/2024 6:43 AM EDT 10/26/2024 8:30 AM EDT Ivelisse Mckay MD LAB BLOOD ORDERABLES Final Resul t [facility] [address] [place] [address], * (ABNORMAL) Complete blood count (10/26/2024 6:43 AM EDT) WBC 5.0 4.8 - 10.8 K/mcL LAB HEMETOLOGY METHOD 10/26/2024 8:50 AM EDT [facility] RBC 3.00(L) 3.80 - 4.80 M/mcL LAB HEMETOLOGY METHOD 10/26/2024 8:50 AM EDT [facility] Hemoglobin 9.5(L) 11.5 - 16.0 g/dL LAB HEMETOLOGY METHOD 10/26/2024 8:50 AM EDT [facility] Hematocrit 28.0(L) 35.0 - 47.0 % LAB HEMETOLOGY METHOD 10/26/2024 8:50 AM EDT [facility] MCV 93.3 79.0 - 98.0 FL LAB HEMETOLOGY METHOD 10/26/2024 8:50 AM EDT [facility] MCH 31.7 27.0 - 32.0 pcg LAB HEMETOLOGY METHOD 10/26/2024 8:50 AM EDT [facility] MCHC 33.9 32.0 - 37.0 g/dL LAB HEMETOLOGY METHOD 10/26/2024 8:50 AM EDT [facility] RDW 12.3 11.0 - 15.0 % LAB HEMETOLOGY METHOD 10/26/2024 8:50 AM EDT [facility] Platelets 155 130 - 400 K/mcL LAB HEMETOLOGY METHOD 10/26/2024 8:50 AM EDT [facility] MPV 10.2 7.0 - 11.0 FL LAB HEMETOLOGY METHOD 10/26/2024 8:50 AM EDT [facility] NRBC 0.0 <1.0 % LAB HEMETOLOGY METHOD 10/26/2024 8:50 AM EDT [facility] NRBC Absolute 0.00 <0.10 K/mcL LAB HEMETOLOGY METHOD 10/26/2024 8:50 AM EDT [facility] LAB Blood Venous blood specimen / Unknown Venipuncture / Unknown 10/26/2024 6:43 AM EDT 10/26/2024 8:30 AM EDT us Ivelisse Mckay MD LAB BLOOD ORDERABLES Final Resul t [facility] [address] [place] [address], documented in this encounter Visit Diagnoses Diagnosis Chronic kidney disease, unspecified documented in this encounter Care Teams Claims Coordinator Relationship Specialty Start Date End Date Maria Esther Morales MD [address] [phone] PCP - General Internal Medicine 01/29/24 documented as of this encounter
--- OUTSIDE RECORDS SUMMARY | 2024-12-09 11:58 | XMS_ITS | Encounter Summary ---
Author Organization [facility] Address [address] [place] [address] Care Team Providers Care Lens Assorter Name Role Phone Maria Esther Morales MD Primary Care Provider [phone] Encounter Details Date Type Department Care Team (Late st Contact Info) Description 10/28/2024 Lab Requisition [facility] - Main Lab 299 [facility] [place] [phone] Ivelisse Mckay MD [address] [place] [address] Hypercalcemia; Hyperlipidemia, unspecified; Hypomagnesemia Social History Tobacco Use Types Packs/Day Years [...] Author No 10/17/2024 2:20 AM EDT Michael Casey, RN * Are you blind or do [...] AM EDT Office Visit Internal Medicine - [place] 175 [facility] 200 [place] [address] Maria Esther Morales MD [address] [phone] 01/16/2025 3:15 PM EDT Office Visit Orthopedic Surgery [facility] [address] [phone] Ranjeet Vasquez DPM [address] [phone] documented as of this encounter Procedures Procedure Name Priority Date/Time Associated Diagnosis Comments BASIC METABOLIC PANEL Routine 10/28/2024 8:42 AM EDT Hypercalcemia Hyperlipidemia, unspecified Hypomagnesemia documented in this encounter Results * (ABNORMAL) Basic metabolic panel (10/28/2024 8:42 AM EDT) [facility] Sodium 141 133 - 145 mmol/L LAB CHEMISTRY METHOD 10/28/2024 12:47 PM [facility] Potassium 3.7 3.5 - 5.5 mmol/L LAB CHEMISTRY METHOD 10/28/2024 12:47 PM [facility] Chloride 110 96 - 110 mmol/L LAB CHEMISTRY METHOD 10/28/2024 12:47 PM [facility] CO2 25 21 - 32 mmol/L LAB CHEMISTRY METHOD 10/28/2024 12:47 PM [facility] Anion Gap 6 3 - 11 LAB CHEMISTRY METHOD 10/28/2024 12:47 PM [facility] Glucose 75 70 - 100 mg/dL LAB CHEMISTRY METHOD 10/28/2024 12:47 PM [facility] BUN 42(H) 5 - 25 mg/dL LAB CHEMISTRY METHOD 10/28/2024 12:47 PM [facility] Creatinine 1.46(H) 0.50 - 1.10 mg/dL LAB CHEMISTRY METHOD 10/28/2024 12:47 PM [facility] eGFR 39(L) >=60 mL/min/1. 73m2 LAB CHEMISTRY METHOD 10/28/2024 12:47 PM [facility] Comment:Calculation based on the Chronic Kidney Disease Epidemiology Collaboration (CKD-EPI) equation refit without adjustment for race. BUN/Creatinine Ratio 28.8 LAB CHEMISTRY METHOD 10/28/2024 12:47 PM [facility] Calcium 10.2 8.5 - 10.5 mg/dL LAB CHEMISTRY METHOD 10/28/2024 12:47 PM [facility] Blood Venous blood specimen / Unknown Venipuncture / Unknown 10/28/2024 8:42 AM EDT 10/28/2024 11:14 AM EDT us Ivelisse Mckay MD LAB BLOOD ORDERABLES Final Resul t [facility] 299 [place] [address], documented in this encounter Visit Diagnoses Diagnosis Hypercalcemia Hyperlipidemia, unspecified Hypomagnesemia Disorders of magnesium metabolism documented in this encounter Care Teams Lens Assorter Relationship Specialty Start Date End Date Maria Esther Morales MD 175 [facility] 200 [place] [address] PCP - General Internal Medicine 01/29/24 documented as of this encounter
--- OUTSIDE RECORDS SUMMARY | 2024-12-09 11:58 | XMS_ITS | Encounter Summary ---
Author Organization [facility] Address [address] [place] [address] Care Team Providers Care Administrator Of Home Health Name Role Phone Maria Esther Morales MD Primary Care Provider [phone] Encounter Details Date Type Department Care Team (Late st Contact Info) Description 10/18/2024 Lab Requisition [facility] - Main Lab 299 [facility] [place] [phone] Ivelisse Mckay MD [address] [place] [address] Essential (primary) hypertension; Anemia, unspecified; Chronic kidney disease, stage 3 unspecified (CMS/HCC V24, CMS/[facility] V28); Vitamin D deficiency, unspecified; Other specified disorders of bone density and structure, unspecified site; Spastic hemiplegia affecting left dominant side ([facility] V24, [facility] V28) Social History Tobacco Use Types Packs/Day Years [...] 11:15 AM EDT Office Visit Internal Medicine [facility] [address] [phone] Maria Esther Morales MD 175 [facility] 200 [place] [phone] 01/16/2025 3:15 PM EDT Office Visit Orthopedic Surgery - [place] [address] [phone] Ranjeet Vasquez DPM [address] [phone] documented as of this encounter Procedures Procedure Name Priority Date/Time Associated Diagnosis Comments COMPLETE BLOOD COUNT Routine 10/18/2024 6:20 AM EDT Essential (primary) hypertension Anemia, unspecified Chronic kidney disease, stage 3 unspecified ([facility] V24, [facility] V28) Vitamin D deficiency, unspecified Other specified disorders of bone density and structure, unspecified site Spastic hemiplegia affecting left dominant side ([facility] V24, [facility] V28) COMPREHENSIVE METABOLIC PANEL Routine 10/18/2024 6:20 AM EDT Essential (primary) hypertension Anemia, unspecified Chronic kidney disease, stage 3 unspecified ([facility] V24, [facility] V28) Vitamin D deficiency, unspecified Other specified disorders of bone density and structure, unspecified site Spastic hemiplegia affecting left dominant side ([facility] V24, [facility] V28) documented in this encounter Results * (ABNORMAL) Comprehensive metabolic panel (10/18/2024 6:20 AM EDT) Sodium 141 133 - 145 mmol/L LAB CHEMISTRY METHOD 10/18/2024 4:06 PM [facility] Potassium 3.5 3.5 - 5.5 mmol/L LAB CHEMISTRY METHOD 10/18/2024 4:06 PM [facility] Chloride 109 96 - 110 mmol/L LAB CHEMISTRY METHOD 10/18/2024 4:06 PM [facility] CO2 25 21 - 32 mmol/L LAB CHEMISTRY METHOD 10/18/2024 4:06 PM [facility] Anion Gap 7 3 - 11 LAB CHEMISTRY METHOD 10/18/2024 4:06 PM [facility] Glucose 75 70 - 100 mg/dL LAB CHEMISTRY METHOD 10/18/2024 4:06 PM [facility] BUN 54(H) 5 - 25 mg/dL LAB CHEMISTRY METHOD 10/18/2024 4:06 PM [facility] Creatinine 2.28(H) 0.50 - 1.10 mg/dL LAB CHEMISTRY METHOD 10/18/2024 4:06 PM [facility] eGFR 23(L) >=60 mL/min/1. 73m2 LAB CHEMISTRY METHOD 10/18/2024 4:06 PM [facility] Comment:Calculation based on the Chronic Kidney Disease Epidemiology Collaboration (CKD-EPI) equation refit without adjustment for race. BUN/Creatinine Ratio 23.7 LAB CHEMISTRY METHOD 10/18/2024 4:06 PM [facility] Calcium 9.1 8.5 - 10.5 mg/dL LAB CHEMISTRY METHOD 10/18/2024 4:06 PM [facility] AST (SGOT) 14 10 - 42 unit/L LAB CHEMISTRY METHOD 10/18/2024 4:06 PM [facility] ALT (SGPT) 14 10 - 60 unit/L LAB CHEMISTRY METHOD 10/18/2024 4:06 PM [facility] Alkaline Phosphatase 90 42 - 121 unit/L LAB CHEMISTRY METHOD 10/18/2024 4:06 PM [facility] Total Protein 6.5 6.0 - 8.0 g/dL LAB CHEMISTRY METHOD 10/18/2024 4:06 PM [facility] Albumin 3.6 3.2 - 5.0 g/dL LAB CHEMISTRY METHOD 10/18/2024 4:06 PM [facility] Total Bilirubin 0.5 0.0 - 1.4 mg/dL LAB CHEMISTRY METHOD 10/18/2024 4:06 PM [facility] Blood Venous blood specimen / Unknown Venipuncture / Unknown 10/18/2024 6:20 AM EDT 10/18/2024 11:15 AM EDT us Ivelisse Mckay MD LAB BLOOD ORDERABLES Final Resul t [facility] [address] [place] [address], * (ABNORMAL) Complete blood count (10/18/2024 6:20 AM EDT) [facility] WBC 5.5 4.8 - 10.8 K/mcL LAB HEMETOLOGY METHOD 10/18/2024 11:59 AM [facility] RBC 3.20(L) 3.80 - 4.80 M/mcL LAB HEMETOLOGY METHOD 10/18/2024 11:59 AM [facility] Hemoglobin 10.3(L) 11.5 - 16.0 g/dL LAB HEMETOLOGY METHOD 10/18/2024 11:59 AM [facility] Hematocrit 31.0(L) 35.0 - 47.0 % LAB HEMETOLOGY METHOD 10/18/2024 11:59 AM [facility] MCV 96.9 79.0 - 98.0 FL LAB HEMETOLOGY METHOD 10/18/2024 11:59 AM [facility] MCH 32.2(H) 27.0 - 32.0 pcg LAB HEMETOLOGY METHOD 10/18/2024 11:59 AM [facility] MCHC 33.2 32.0 - 37.0 g/dL LAB HEMETOLOGY METHOD 10/18/2024 11:59 AM [facility] RDW 12.5 11.0 - 15.0 % LAB HEMETOLOGY METHOD 10/18/2024 11:59 AM [facility] Platelets 146 130 - 400 K/mcL LAB HEMETOLOGY METHOD 10/18/2024 11:59 AM [facility] MPV 10.7 7.0 - 11.0 FL LAB HEMETOLOGY METHOD 10/18/2024 11:59 AM [facility] NRBC 0.0 <1.0 % LAB HEMETOLOGY METHOD 10/18/2024 11:59 AM [facility] NRBC Absolute 0.00 <0.10 K/mcL LAB HEMETOLOGY METHOD 10/18/2024 11:59 AM EDT [facility] Blood Venous blood specimen / Unknown Venipuncture / Unknown 10/18/2024 6:20 AM EDT 10/18/2024 11:15 AM EDT us Ivelisse Mckay MD LAB BLOOD ORDERABLES Final Resul t [facility] [address] [place] [address], documented in this encounter Visit Diagnoses Diagnosis Essential (primary) hypertension Unspecified essential hypertension Anemia, unspecified Chronic kidney disease, stage 3 unspecified ([facility] V24, [facility] V28) Vitamin D deficiency, unspecified Other specified disorders of bone density and structure, unspecified site Spastic hemiplegia affecting left dominant side ([facility] V24, [facility] V28) documented in this encounter Care Teams Administrator Of Home Health Relationship Specialty Start Date End Date Maria Esther Morales MD [address] [place] [phone] PCP - General Internal Medicine 01/29/24 documented as of this encounter
--- OUTSIDE RECORDS SUMMARY | 2024-12-09 11:58 | XMS_ITS | Encounter Summary ---
Author Organization [facility] Address [address] [place] [address] Care Team Providers Care Telesales Agent Name Role Phone Maria Esther Morales MD Primary Care Provider [phone] Reason for Visit * Reason Onset Date Comments Request For Order(s) 12/08/2024 Shivani Almanzar [facility] Care - Order [id number] Encounter Details Date Type Department Care Team (Late st Contact Info) Description 12/08/2024 Telephone Internal Medicine - [place] 175 [facility] [address] [place] [address] Mallorie Diego MA Social History Tobacco Use Types Packs/Day Years [...] documented in this encounter Progress Notes * Mallorie Diego MA - 12/08/2024 10:[address] [facility] - Order [id number] Please sign & fax [phone] documented in this encounter Plan of Treatment Upcoming Encounters Date Type Department Care Team (Late st Contact Info) Description 12/28/2024 11:15 AM EDT Office Visit Internal Medicine - [place] 175 [facility] 200 [place] [phone] Maria Esther Morales MD 175 [facility] 200 [place] [phone] 01/16/2025 3:15 PM EDT Office Visit Orthopedic Surgery - [place] 250 175 [facility] 250 [place] [phone] Ranjeet Vasquez DPM 175 [facility] 250 [place] [address] documented as of this encounter Visit Diagnoses Not on filedocumented in this encounter Care Teams Telesales Agent Relationship Specialty Start Date End Date Maria Esther Morales MD [address] [phone] PCP - General Internal Medicine 01/29/24 documented as of this encounter
== END 2024-12-09 12:27 | disposition home or self-care (01) ==
LOC: HO.HOS 10:26
PROVIDERS: PCP Internal Medicine; Visit Provider Physical Medicine & Rehabilitation
DX: G81.11 Spastic hemiplegia affecting right dominant side (principal); I69.359 Hemiplegia and hemiparesis following cerebral infarction affecting unspecified side
CPT/HCPCS: 99214

== ENCOUNTER → 2024-12-09 10:25 | Outpatient (BNVA) | payer OTHER, SELFPAY | PROVIDERS: PCP Internal Medicine; Visit Provider Physical Medicine & Rehabilitation | DX: G81.11 Spastic hemiplegia affecting right dominant side (principal) | CPT/HCPCS: 99212 ==

== ENCOUNTER → 2024-12-12 07:47 | Outpatient (BNV) | payer OTHER, SELFPAY | PROVIDERS: PCP Internal Medicine; Visit Provider Physical Medicine & Rehabilitation | DX: G81.11 Spastic hemiplegia affecting right dominant side (principal); I69.351 Hemiplegia and hemiparesis following cerebral infarction affecting right dominant side | CPT/HCPCS: 64642; 95874 ==

== ENCOUNTER 2024-12-12 10:00 | Outpatient (REF) | payer OTHER, SELFPAY ==
--- NOTE | 2024-12-12 07:47 | EMG_ITS ---
PROCEDURE PERFORMED: Botulinum toxin chemodenervation DIAGNOSIS:? 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 I69.359 Last injection: 08/04/2024 TOXIN USED: Botox PROCEDURE: The procedure was explained to the patient/caregiver, and informed consent was obtained. The patient sat on bed. Left arm was cleansed with betadine in the usual sterile manner. A 26 gauge 1.5 inch needle electrode was used. Muscle Units per site Number of sites Units per muscle Left brachialis 50 2 100 Left brachioradialis 50 1 50 Left PT 50 1 50 EMG-guidance was used during the injection. A total of 200 units injected. 0 units wastage. Vial size: 100 units per vial Dilution: 100 units per 1 ml of preservative free saline The patient tolerated the procedure well without complications. The patient was observed for 30 minutes, before being discharged with post procedure instructions. CODING: CPT code: 10037 1 ext, 1-4 muscles Guidance code: 80320 EMG guidance for chemodenervation J code: Botox J0585 [facility] code: 6941-0438-95 Lot #: [id number] [facility]
--- OUTSIDE RECORDS SUMMARY | 2024-12-12 12:30 | XMS_ITS | Encounter Summary ---
Author Organization [facility] Address [address] [place] [address] Care Team Providers Care Bioinformatics Software Engineer Name Role Phone Maria Esther Morales MD Primary Care Provider [phone] Reason for Visit * Reason Onset Date Comments Request For Order(s) 12/08/2024 Shivani Almanzar [facility] Care - Order [id number] Encounter Details Date Type Department Care Team (Late st Contact Info) Description 12/08/2024 Telephone Internal Medicine - [place] 175 [facility] [address] [place] [address] Mallorie Diego MA Social History [...] Diego MA - 12/08/2024 10:45 AM EDT [facility] [place] - Order [id number] Please sign & fax [phone] documented in this encounter Plan of Treatment Upcoming Encounters Date Type Department Care Team (Late st Contact Info) Description 12/28/2024 11:15 AM EDT Office Visit Internal Medicine - [place] 175 [facility] 200 [place] [phone] Maria Esther Morales MD 175 [facility] 200 [place] [phone] 01/16/2025 3:15 PM EDT Office Visit Orthopedic Surgery - [place] 250 175 [facility] 250 [place] [phone] Ranjeet Vasquez DPM 175 [facility] 250 [place] [address] documented as of this encounter Visit Diagnoses Not on filedocumented in this encounter Care Teams Bioinformatics Software Engineer Relationship Specialty Start Date End Date Maria Esther Morales MD [address] [phone] PCP - General Internal Medicine 01/29/24 documented as of this encounter
--- OUTSIDE RECORDS SUMMARY | 2024-12-12 12:30 | XMS_ITS | Encounter Summary ---
Author Organization [facility] Address [address] [place] [address] Care Team Providers Care Inspector General Name Role Phone Maria Esther Morales MD Primary Care Provider Encounter Details Date Type Department Care Team (Late st Contact Info) Description 11/25/2024 Telephone Internal Medicine - [place] [address] [address] [place] [phone] Maria Esther Morales MD [address] [facility] [address] [place] [phone] Social History Tobacco Use Types Packs/Day Years [...] - 11/25/2024 11:04 AM EDT Connie from [facility] - her visit this week one not twice as patient was not home today for physical therapy fyi documented in this encounter Plan of Treatment Upcoming Encounters Date Type Department Care Team (Late st Contact Info) Description 12/28/2024 11:15 AM EDT Office Visit Internal Medicine - [place] 175 [facility] 200 [place] [phone] Maria Esther Morales MD 175 [facility] 200 [place] [phone] 01/16/2025 3:15 PM EDT Office Visit Orthopedic Surgery - [place] 250 175 [facility] 250 [place] [phone] Ranjeet Vasquez DPM 175 [facility] 250 [place] [phone] documented as of this encounter Visit Diagnoses Not on filedocumented in this encounter Care Teams Inspector General Relationship Specialty Start Date End Date Maria Esther Morales MD [address] [phone] PCP - General Internal Medicine 01/29/24 documented as of this encounter
--- OUTSIDE RECORDS SUMMARY | 2024-12-12 12:30 | XMS_ITS | Encounter Summary ---
Author Organization [facility] Address [address] [place] [address] Care Team Providers Care Entry Level Programmer Name Role Phone Maria Esther Morales MD Primary Care Provider [phone] Encounter Details Date Type Department Care Team (Late st Contact Info) Description 12/01/2024 Telephone Internal Medicine - [place] [address] [facility] [address] [place] [phone] Maria Esther Morales MD [address] [facility] [address] [place] [phone] Social History Tobacco Use Types Packs/Day Years [...] AM EDT Office Visit Internal Medicine - [place] [address] [phone] Maria Esther Morales MD 175 [facility] 200 [place] [phone] 01/16/2025 3:15 PM EDT Office Visit Orthopedic Surgery - [place] [address] [phone] Ranjeet Vasquez DPM [address] [phone] documented as of this encounter Visit Diagnoses Not on filedocumented in this encounter Care Teams Entry Level Programmer Relationship Specialty Start Date End Date Maria Esther Morales MD [address] [phone] PCP - General Internal Medicine 01/29/24 documented as of this encounter
--- OUTSIDE RECORDS SUMMARY | 2024-12-12 12:31 | XMS_ITS | Clinical Summary ---
Author Organization [facility] Address [address] [facility] [address] [place] [address] Phone Care Team Providers Care Dump Operator Name Role Phone Maria Esther Morales MD Primary Care Provider [phone] Allergies No known active allergies Medications aspirin [...] Of [place] [address] [place] [address] Daniel King MD from Last 3 Months Family History Medical History Relation Comments Kidney disease Child [id number] Kidney Transplant Hypertension Mother Hypertension Sibling 1 [...] ([facility] st Contact Info) Description 02/06/2025 10:20 AM EST Office Visit [facility] [address] [address] Daniel King MD [address] [phone] Health Maintenance Due Date Last Done Comments [...] patient's age to complete this topic Insurance [facility] ([id number]) [place] [phone] [facility] ([id number]) [place] [phone] Care Teams Dump Operator Relationship Specialty Start Date End Date Maria Esther Morales MD 175 [facility] [address] [place] [address] PCP - General 04/09/20
--- OUTSIDE RECORDS SUMMARY | 2024-12-12 12:31 | XMS_ITS | Encounter Summary ---
Author Organization [facility] Address [address] [place] [address] Care Team Providers Care [employer] Specialist Name Role Phone Maria Esther Morales MD Primary Care Provider [phone] Encounter Details Date Type Department Care Team (Late st Contact Info) Description 10/26/2024 Lab Requisition [facility] - Main Lab 299 [facility] [place] [phone] Ivelisse Mckay MD [address] [place] [address] Chronic kidney disease, unspecified Social History Tobacco [...] 2:20 AM EDT Michale Casey RN * Are you blind or [...] AM EDT Office Visit Internal Medicine - [place] 175 [facility] [address] [place] [address] Maria Esther Morales MD 175 [facility] 200 [place] [phone] 01/16/2025 3:15 PM EDT Office Visit Orthopedic Surgery - [place] [address] [phone] Ranjeet Vasquez DPM [address] [phone] documented as of this encounter Procedures Procedure Name Priority Date/Time Associated Diagnosis Comments COMPLETE BLOOD COUNT Routine 10/26/2024 6:43 AM EDT Chronic kidney disease, unspecified BASIC METABOLIC PANEL Routine 10/26/2024 6:43 AM EDT Chronic kidney disease, unspecified documented in this encounter Results * (ABNORMAL) Basic metabolic panel (10/26/2024 6:43 AM EDT) Sodium 140 133 - 145 mmol/L LAB CHEMISTRY METHOD 10/26/2024 9:[address] [facility] Potassium 3.1(L) 3.5 - 5.5 mmol/L LAB CHEMISTRY METHOD 10/26/2024 9:[address] [facility] Chloride 109 96 - 110 mmol/L LAB CHEMISTRY METHOD 10/26/2024 9:[address] [facility] CO2 25 21 - 32 mmol/L LAB CHEMISTRY METHOD 10/26/2024 9:[address] [facility] Anion Gap 6 3 - 11 LAB CHEMISTRY METHOD 10/26/2024 9:[address] [facility] Glucose 76 70 - 100 mg/dL LAB CHEMISTRY METHOD 10/26/2024 9:[address] [facility] BUN 43(H) 5 - 25 mg/dL LAB CHEMISTRY METHOD 10/26/2024 9:[address] [facility] Creatinine 1.53(H) 0.50 - 1.10 mg/dL LAB CHEMISTRY METHOD 10/26/2024 9:[address] [facility] eGFR 37(L) >=60 mL/min/1. 73m2 LAB CHEMISTRY METHOD 10/26/2024 9:[address] [facility] Comment:Calculation based on the Chronic Kidney Disease Epidemiology Collaboration (CKD-EPI) equation refit without adjustment for race. BUN/Creatinine Ratio 28.1 LAB CHEMISTRY METHOD 10/26/2024 9:[address] [facility] Calcium 9.7 8.5 - 10.5 mg/dL LAB CHEMISTRY METHOD 10/26/2024 9:[address] [facility] Blood Venous blood specimen / Unknown Venipuncture / Unknown 10/26/2024 6:43 AM EDT 10/26/2024 8:30 AM EDT Ivelisse Mckay MD LAB BLOOD ORDERABLES Final Resul t [facility] [address] [place] [address], * (ABNORMAL) Complete blood count (10/26/2024 6:43 AM EDT) WBC 5.0 4.8 - 10.8 K/mcL LAB HEMETOLOGY METHOD 10/26/2024 8:50 AM EDT [facility] RBC 3.00(L) 3.80 - 4.80 M/mcL LAB HEMETOLOGY METHOD 10/26/2024 8:50 AM EDT [facility] Hemoglobin 9.5(L) 11.5 - 16.0 g/dL LAB HEMETOLOGY METHOD 10/26/2024 8:50 AM EDT [facility] Hematocrit 28.0(L) 35.0 - 47.0 % LAB HEMETOLOGY METHOD 10/26/2024 8:50 AM EDT [facility] MCV 93.3 79.0 - 98.0 FL LAB HEMETOLOGY METHOD 10/26/2024 8:50 AM EDT [facility] MCH 31.7 27.0 - 32.0 pcg LAB HEMETOLOGY METHOD 10/26/2024 8:50 AM EDT [facility] MCHC 33.9 32.0 - 37.0 g/dL LAB HEMETOLOGY METHOD 10/26/2024 8:50 AM EDT [facility] RDW 12.3 11.0 - 15.0 % LAB HEMETOLOGY METHOD 10/26/2024 8:50 AM EDT [facility] Platelets 155 130 - 400 K/mcL LAB HEMETOLOGY METHOD 10/26/2024 8:50 AM EDT [facility] MPV 10.2 7.0 - 11.0 FL LAB HEMETOLOGY METHOD 10/26/2024 8:50 AM EDT [facility] NRBC 0.0 <1.0 % LAB HEMETOLOGY METHOD 10/26/2024 8:50 AM EDT [facility] NRBC Absolute 0.00 <0.10 K/mcL LAB HEMETOLOGY METHOD 10/26/2024 8:50 AM EDT [facility] Blood Venous blood specimen / Unknown Venipuncture / Unknown 10/26/2024 6:43 AM EDT 10/26/2024 8:30 AM EDT us Ivelisse Mckay MD LAB BLOOD ORDERABLES Final Resul t [facility] [address] [place] [address], documented in this encounter Visit Diagnoses Diagnosis Chronic kidney disease, unspecified documented in this encounter Care Teams [employer] Specialist Relationship Specialty Start Date End Date Maria Esther Moarles MD [address] [phone] PCP - General Internal Medicine 01/29/24 documented as of this encounter
--- OUTSIDE RECORDS SUMMARY | 2024-12-12 12:31 | XMS_ITS | Encounter Summary ---
Author Organization [facility] Address [address] [place] [address] Care Team Providers Care Visual Artist Name Role Phone Maria Esther Morales MD Primary Care Provider [phone] Encounter Details Date Type Department Care Team (Late st Contact Info) Description 10/28/2024 Lab Requisition [facility] - Main Lab 299 [facility] [place] [phone] Ivelisse Mckay MD [address] [place] [address] Hypercalcemia; Hyperlipidemia, unspecified; Hypomagnesemia Social History Tobacco [...] Author No 10/17/2024 2:20 AM EDT Michael Csaey, RN * Are you blind or do [...] AM EDT Office Visit Internal Medicine - [place] 175 [facility] 200 [place] [address] Maria Esther Morales MD [address] [phone] 01/16/2025 3:15 PM EDT Office Visit Orthopedic Surgery [facility] [address] [phone] Ranjeet Vasquez DPM [address] [phone] documented as of this encounter Procedures Procedure Name Priority Date/Time Associated Diagnosis Comments BASIC METABOLIC PANEL Routine 10/28/2024 8:42 AM EDT Hypercalcemia Hyperlipidemia, unspecified Hypomagnesemia documented in this encounter Results * (ABNORMAL) Basic metabolic panel (10/28/2024 8:42 AM EDT) [facility] Sodium 141 133 - 145 mmol/L LAB CHEMISTRY METHOD 10/28/2024 12:47 PM [facility] Potassium 3.7 3.5 - 5.5 mmol/L LAB CHEMISTRY METHOD 10/28/2024 12:47 PM [facility] Chloride 110 96 - 110 mmol/L LAB CHEMISTRY METHOD 10/28/2024 12:47 PM [facility] CO2 25 21 - 32 mmol/L LAB CHEMISTRY METHOD 10/28/2024 12:47 PM [facility] Anion Gap 6 3 - 11 LAB CHEMISTRY METHOD 10/28/2024 12:47 PM [facility] Glucose 75 70 - 100 mg/dL LAB CHEMISTRY METHOD 10/28/2024 12:47 PM [facility] BUN 42(H) 5 - 25 mg/dL LAB CHEMISTRY METHOD 10/28/2024 12:47 PM [facility] Creatinine 1.46(H) 0.50 - 1.10 mg/dL LAB CHEMISTRY METHOD 10/28/2024 12:47 PM [facility] eGFR 39(L) >=60 mL/min/1. 73m2 LAB CHEMISTRY METHOD 10/28/2024 12:47 PM [facility] Comment:Calculation based on the Chronic Kidney Disease Epidemiology Collaboration (CKD-EPI) equation refit without adjustment for race. BUN/Creatinine Ratio 28.8 LAB CHEMISTRY METHOD 10/28/2024 12:47 PM [facility] Calcium 10.2 8.5 - 10.5 mg/dL LAB CHEMISTRY METHOD 10/28/2024 12:47 PM [facility] Blood Venous blood specimen / Unknown Venipuncture / Unknown 10/28/2024 8:42 AM EDT 10/28/2024 11:14 AM EDT us Ivelisse Mckay MD LAB BLOOD ORDERABLES Final Resul t [facility] [address] [place] [address], documented in this encounter Visit Diagnoses Diagnosis Hypercalcemia Hyperlipidemia, unspecified Hypomagnesemia Disorders of magnesium metabolism documented in this encounter Care Teams Visual Artist Relationship Specialty Start Date End Date Maria Esther Morales MD 175 [facility] 200 [place] [address] PCP - General Internal Medicine 01/29/24 documented as of this encounter
--- OUTSIDE RECORDS SUMMARY | 2024-12-12 12:31 | XMS_ITS | Clinical Summary ---
Author Organization [facility] Address [address] [place] [address] Phone Care Team Providers Care Cdl Flatbed Truck Driver Name Role Phone Rajesh Morales MD Primary Care Provider [phone] Allergies No known active allergies Medications carBAMazepine [...] side as late effect of cerebral infarction ([facility] [place], [facility] V28) 07/02/2024 Cerebrovascular accident (CVA) ([facility] [place], [facility] V28) 10/20/2021 Proteinuria 10/20/2021 Edema 10/17/2021 Hemiparesis ([facility] [place]24, [facility] V28) Hyperaldosteronism, unspecified ([facility] V24) Hypercalcemia 10/17/2021 Renal stone 10/17/2021 CKD (chronic kidney disease) stage 3, GFR 30-59 ml/min ([facility], [facility] V28) 09/18/2017 Hypertension 09/18/2017 Hemiplegia affecting nondomi nant side ([facility]24, [facility] V28) 02/29/2016 Anemia in chronic kidney disease 02/26/2016 Vitamin D deficiency 07/24/2015 Osteopenia 07/12/2015 Encounters Date Type Department Care Team Description 12/08/2024 Telephone Internal Medicine [facility] [address] [phone] Mallorie [place] 12/01/2024 Telephone Internal Medicine [facility] [address] [phone] Rajesh Morales MD 11/25/2024 Telephone Internal Medicine [facility] [address] [address] Rajesh Morales MD 11/16/2024 Telephone Internal Medicine [facility] [address] [phone] Mallorie [place] 11/10/2024 Telephone Internal Medicine [facility] [address] [phone] Julius [place] 11/09/2024 10:00 AM EDT Office Visit Internal [facility] [address] [phone] Rajesh Morales MD Closed fracture of base of fifth metatarsal bone of left foot (Primary Dx); Stage 3b chronic kidney disease (CMS/HCC V24, CMS/HCC V28); Anemia in stage 3b chronic kidney disease (CMS/HCC V24, CMS/HCC V28); Primary hypertension 11/08/2024 [facility] Internal [facility] [address] [phone] Mallorie [place] 11/08/2024 [facility] Internal Medicine [facility] [address] [address] Mallorie [place] 11/07/2024 3:45 PM EDT Office Visit Orthopedic Surgery [facility] [address] [phone] Ranjeet Vasquez, DPM Closed fracture of base of fifth metatarsal bone of left foot 11/02/2024 [facility] Internal [facility] [address] [phone] Rajesh Morales MD 11/02/2024 [facility] Internal [facility] [address] [phone] Rajesh Morales MD 11/01/2024 [facility] Internal Medicine [facility] [address] [phone] Rajesh Morales MD 11/01/2024 [facility] Internal Medicine [facility] [address] [address] Rajesh Morales MD 10/28/2024 Lab Requisition [facility] [address] [place] [phone] Ivelisse Mckay MD Hypercalcemia; Hyperlipidemia, unspecified; Hypomagnesemia 10/26/2024 Lab Requisition [facility] Lab [address] [place] [phone] Ivelisse Mckay MD Chronic kidney disease, unspecified 10/24/2024 Telephone Internal Medicine - [place] [address] [facility] [address] [place] [phone] Rajesh Morales MD 10/18/2024 Lab Requisition [facility] Lab [address] [place] [phone] Ivelisse Mckay MD Essential (primary) hypertension; Anemia, unspecified; Chronic kidney disease, stage 3 unspecified ([facility] V24, [facility] V28); Vitamin D deficiency, unspecified; Other specified disorders of bone density and structure, unspecified site; Spastic hemiplegia affecting left dominant side ([facility] V24, [facility] V28) 10/17/2024 12:11 AM EDT - 10/17/2024 2:05 PM EDT Emergency [facility] Emergency [address] [place] [address] Luan Metcalf MD Kokkinos, Erika, [...] kidney disease) stage 3, GFR 30-59 ml/min ([facility] V24, [facility] V28) 09/18/2017 DX:CKD (chronic kidney disea se) stage 3, GFR 30-59 ml/min ([facility]) Hemiplegia affecting nondomi nant side ([facility] V24, [facility] V28) 02/29/2016 DX:Hemiplegia affecting non dominant side ([facility]) Hypertension 09/18/2017 DX:Hypertension Osteopenia 07/12/2015 DX:Osteopenia [...] AM EDT Office Visit Internal Medicine - [place] [address] [phone] Rajesh Morales MD 175 [facility] [address] [place] [phone] 01/16/2025 3:15 PM EDT Office Visit Orthopedic Surgery - [place] 250 175 [facility] [address] [place] [phone] Ranjeet Vasquez, DPM [address] [facility] [address] [place] [address] Health Maintenance Due Date Last [...] neoplasm of breast DEPRESSION SCREENING Routine 07/22/2023 [facility] DEXA AXIAL SKELETON Routine 05/23/2020 5:08 PM EST Asymptomatic menopausal state from Last 3 Months or Most Recently Relevant to Health Maintenance Results * (ABNORMAL) CBC auto differential (11/09/2024 10:19 AM EDT) WBC 5.8 4.8 - 10.8 K/mcL LAB HEMETOLOGY METHOD 11/09/2024 2:38 PM EDT [facility] RBC 3.40(L) 3.80 - 4.80 M/mcL LAB HEMETOLOGY METHOD [facility] Hemoglobin 10.7(L) 11.5 - 16.0 g/dL LAB HEMETOLOGY METHOD 11/09/2024 2:38 [facility] Hematocrit 33.7(L) 35.0 - 47.0 % LAB HEMETOLOGY METHOD 11/09/2024 2:38 [facility] MCV 98.3(H) 79.0 - 98.0 FL LAB HEMETOLOGY METHOD 11/09/2024 2:38 [facility] MCH 31.2 27.0 - 32.0 pcg LAB HEMETOLOGY METHOD 11/09/2024 2:38 [facility] MCHC 31.8(L) 32.0 - 37.0 g/dL LAB HEMETOLOGY METHOD 11/09/2024 2:38 PM [facility] RDW 12.8 11.0 - 15.0 % LAB HEMETOLOGY METHOD 11/09/2024 2:38 PM [facility] Platelets 195 130 - 400 K/mcL LAB HEMETOLOGY METHOD 11/09/2024 2:38 [facility] MPV 10.5 7.0 - 11.0 FL LAB HEMETOLOGY METHOD 11/09/2024 2:38 [facility] NRBC 0.0 <1.0 % LAB HEMETOLOGY METHOD 11/09/2024 2:38 PM [facility] NRBC Absolute 0.00 <0.10 K/mcL LAB HEMETOLOGY METHOD 11/09/2024 2:38 PM [facility] Neutrophils Relative 65.4 % LAB HEMETOLOGY METHOD 11/09/2024 2:38 PM [facility] Lymphocytes Relative 22.3 % LAB HEMETOLOGY METHOD 11/09/2024 2:38 PM [facility] Monocytes Relative 7.8 % LAB HEMETOLOGY METHOD 11/09/2024 2:38 PM [facility] Eosinophils Relative 3.1 % LAB HEMETOLOGY METHOD 11/09/2024 2:38 PM [facility] Basophils Relative 0.7 % LAB HEMETOLOGY METHOD 11/09/2024 2:38 PM [facility] Immature Granulocytes Relative 0.7 % LAB HEMETOLOGY METHOD 11/09/2024 2:38 PM [facility] Neutrophils Absolute 3.76 1.50 - 7.00 K/mcL LAB HEMETOLOGY METHOD 11/09/2024 2:38 PM [facility] Lymphocytes Absolute 1.28 1.00 - 5.00 K/mcL LAB HEMETOLOGY METHOD 11/09/2024 2:38 PM [facility] Monocytes Absolute 0.45 0.20 - 1.00 K/mcL LAB HEMETOLOGY METHOD 11/09/2024 2:38 PM [facility] Eosinophils Absolute 0.18 0.00 - 0.50 K/mcL LAB HEMETOLOGY METHOD 11/09/2024 2:38 [facility] Basophils Absolute 0.04 0.00 - 0.20 K/mcL LAB HEMETOLOGY METHOD 11/09/2024 2:38 PM EDT [facility] Immature Granulocytes Absolute 0.04(H) 0.00 - 0.03 K/mcL LAB HEMETOLOGY METHOD 11/09/2024 2:38 PM EDT [facility] Blood Venous blood specimen / Unknown Venipuncture / Unknown 11/09/2024 10:19 AM EDT 11/09/2024 10:23 AM EDT us Rajesh Morales MD LAB BLOOD ORDERABLES Final Res ult [facility] [address] [place] [address], [place] [phone] * (ABNORMAL) Iron and TIBC (11/09/2024 10:19 AM EDT) Iron 59 40 - 150 mcg/dL LAB CHEMISTRY METHOD 11/09/2024 4:54 PM EDT [facility] TIBC 241(L) 250 - 450 mcg/dL LAB CHEMISTRY METHOD 11/09/2024 4:54 PM EDT [facility] Iron Saturation 24 15 - 50 % LAB CHEMISTRY METHOD 11/09/2024 4:54 PM EDT [facility] Blood Venous blood specimen / Unknown Venipuncture / Unknown 11/09/2024 10:19 AM EDT 11/09/2024 10:23 AM EDT us Rajesh Morales MD LAB BLOOD ORDERABLES Final Res ult [facility] [address] [place] [address], [place] [phone] * (ABNORMAL) Ferritin (11/09/2024 10:19 AM EDT) Ferritin 255(H) 8 - 252 ng/mL LAB CHEMISTRY METHOD 11/09/2024 4:55 PM EDT [facility] Blood Venous blood specimen / Unknown Venipuncture / Unknown 11/09/2024 10:19 AM EDT 11/09/2024 10:23 AM EDT us Rajesh Morales MD LAB BLOOD ORDERABLES Final Res ult [facility] [address] [place] [address], [place] [phone] * (ABNORMAL) Basic metabolic panel (11/09/2024 10:19 AM EDT) Only the most recent of3 resultswithin the time period is included. [facility] Sodium 139 133 - 145 mmol/L LAB CHEMISTRY METHOD 11/09/2024 4:54 PM [facility] Potassium 4.4 3.5 - 5.5 mmol/L LAB CHEMISTRY METHOD 11/09/2024 4:54 PM [facility] Chloride 108 96 - 110 mmol/L LAB CHEMISTRY METHOD 11/09/2024 4:54 PM [facility] CO2 28 21 - 32 mmol/L LAB CHEMISTRY METHOD 11/09/2024 4:54 PM [facility] Anion Gap 3 3 - 11 LAB CHEMISTRY METHOD 11/09/2024 4:54 PM [facility] Glucose 80 70 - 100 mg/dL LAB CHEMISTRY METHOD 11/09/2024 4:54 PM [facility] BUN 35(H) 5 - 25 mg/dL LAB CHEMISTRY METHOD 11/09/2024 4:54 PM [facility] Creatinine 1.50(H) 0.50 - 1.10 mg/dL LAB CHEMISTRY METHOD 11/09/2024 4:54 PM [facility] eGFR 38(L) >=60 mL/min/1. 73m2 LAB CHEMISTRY METHOD 11/09/2024 4:54 PM EDT [facility] Comment:Calculation based on the Chronic Kidney Disease Epidemiology Collaboration (CKD-EPI) equation refit without adjustment for race. BUN/Creatinine Ratio 23.3 LAB CHEMISTRY METHOD 11/09/2024 4:54 PM EDT [facility] Calcium 10.3 8.5 - 10.5 mg/dL LAB CHEMISTRY METHOD 11/09/2024 4:54 PM EDT [facility] Blood Venous blood specimen / Unknown Venipuncture / Unknown 11/09/2024 10:19 AM EDT 11/09/2024 10:23 AM EDT Rajesh Morales MD LAB BLOOD ORDERABLES Final Res ult [facility] [address] [place] [address], * XR Foot 3+ Views Left (11/07/2024 [...] is included. WBC 5.0 4.8 - 10.8 K/[facility] LAB HEMETOLOGY METHOD 10/26/2024 8:50 AM EDT [facility] RBC 3.00(L) 3.80 - 4.80 M/[facility] LAB HEMETOLOGY METHOD 10/26/2024 8:50 AM EDT [facility] Hemoglobin 9.5(L) 11.5 - 16.0 g/dL LAB HEMETOLOGY METHOD 10/26/2024 8:50 AM [facility] Hematocrit 28.0(L) 35.0 - 47.0 % LAB HEMETOLOGY METHOD 10/26/2024 8:50 AM T [facility] MCV 93.3 79.0 - 98.0 FL LAB HEMETOLOGY METHOD 10/26/2024 8:50 AM EDT [facility] MCH 31.7 27.0 - 32.0 pcg LAB HEMETOLOGY METHOD 10/26/2024 8:50 AM [facility] MCHC 33.9 32.0 - 37.0 g/dL LAB HEMETOLOGY METHOD 10/26/2024 8:50 AM [facility] RDW 12.3 11.0 - 15.0 % LAB HEMETOLOGY METHOD 10/26/2024 8:50 AM [facility] Platelets 155 130 - 400 K/mcL LAB HEMETOLOGY METHOD 10/26/2024 8:50 AM [facility] MPV 10.2 7.0 - 11.0 FL LAB HEMETOLOGY METHOD 10/26/2024 8:50 AM [facility] NRBC 0.0 <1.0 % LAB HEMETOLOGY METHOD 10/26/2024 8:50 AM [facility] NRBC Absolute 0.00 <0.10 K/mcL LAB HEMETOLOGY METHOD 10/26/2024 8:50 AM [facility] Blood Venous blood specimen / Unknown Venipuncture / Unknown 10/26/2024 6:43 AM EDT 10/26/2024 8:30 AM EDT Ivelisse Mckay MD LAB BLOOD ORDERABLES Final Resul t [facility] [address] [place] [address], * (ABNORMAL) Comprehensive metabolic panel (10/18/2024 6:20 AM EDT) Sodium 141 133 - 145 mmol/L LAB CHEMISTRY METHOD 10/18/2024 4:06 PM [facility] Potassium 3.5 3.5 - 5.5 mmol/L LAB CHEMISTRY METHOD 10/18/2024 4:06 PM [facility] Chloride 109 96 - 110 mmol/L LAB CHEMISTRY METHOD 10/18/2024 4:06 PM [facility] CO2 25 21 - 32 mmol/L LAB CHEMISTRY METHOD 10/18/2024 4:06 PM [facility] Anion Gap 7 3 - 11 LAB CHEMISTRY METHOD 10/18/2024 4:06 PM [facility] Glucose 75 70 - 100 mg/dL LAB CHEMISTRY METHOD 10/18/2024 4:06 PM [facility] BUN 54(H) 5 - 25 mg/dL LAB CHEMISTRY METHOD 10/18/2024 4:06 PM [facility] Creatinine 2.28(H) 0.50 - 1.10 mg/dL LAB CHEMISTRY METHOD 10/18/2024 4:06 PM [facility] eGFR 23(L) >=60 mL/min/1. 73m2 LAB CHEMISTRY METHOD 10/18/2024 4:06 PM [facility] Comment:Calculation based on the Chronic Kidney Disease Epidemiology Collaboration (CKD-EPI) equation refit without adjustment for race. BUN/Creatinine Ratio 23.7 LAB CHEMISTRY METHOD 10/18/2024 4:06 PM [facility] Calcium 9.1 8.5 - 10.5 mg/dL LAB CHEMISTRY METHOD 10/18/2024 4:06 PM EDT [facility] AST (SGOT) 14 10 - 42 unit/L LAB CHEMISTRY METHOD 10/18/2024 4:06 PM EDT [facility] ALT (SGPT) 14 10 - 60 unit/L LAB CHEMISTRY METHOD 10/18/2024 4:06 PM EDT [facility] Alkaline Phosphatase 90 42 - 121 unit/L LAB CHEMISTRY METHOD 10/18/2024 4:06 PM EDT [facility] Total Protein 6.5 6.0 - 8.0 g/dL LAB CHEMISTRY METHOD 10/18/2024 4:06 PM EDT [facility] Albumin 3.6 3.2 - 5.0 g/dL LAB CHEMISTRY METHOD 10/18/2024 4:06 PM EDT [facility] Total Bilirubin 0.5 0.0 - 1.4 mg/dL LAB CHEMISTRY METHOD 10/18/2024 4:06 PM EDT [facility] Blood Venous blood specimen / Unknown Venipuncture / Unknown 10/18/2024 6:20 AM EDT 10/18/2024 11:15 AM EDT Ivelisse Mckay MD LAB BLOOD ORDERABLES Final Resul t [facility] [address] [place] [address], * XR Ankle 3+ Views Left (10/17/2024 1:09 AM EDT) Anatomical Region Laterality Modality Lower Extremities, Ankle Left Radiogr aphic Imaging 10/17/2024 7:55 AM EDT Impressions 10/17/2024 7:56 AM EDT Minimally displaced fracture of the base of the fifth metatarsal. Code 04645 -------- FINAL REPORT -------- Dictated By: Alexandr May Dictated Date: 10/17/2024 07:55 ET Assigned Physician: Alexandr May Reviewed and Electronically Signed By: Alexandr May Signed Date: 10/17/2024 07:56 ET Workstation ID: [id number] Transcribed By: Self Edit Transcribed Date: 10/17/2024 [...] the base of the fifth metatarsal. Code 24678 -------- FINAL REPORT -------- Dictated By: Alexandr May Dictated Date: 10/17/2024 07:55 ET Assigned Physician: Alexandr May Reviewed and Electronically Signed By: Alexandr May Signed Date: 10/17/2024 07:56 ET Workstation ID: [id number] Transcribed By: Self Edit Transcribed Date: 10/17/2024 07:55 ET us Luan Metcalf MD IMG XR PROCEDURES Final R esult * Lipid panel with reflex to direct LDL (08/03/2024 1:48 PM EDT) [facility] Cholesterol 117 0 - 200 mg/dL LAB CHEMISTRY METHOD 08/03/2024 7:22 PM EDT [facility] Triglycerides 71 0 - 150 mg/dL LAB CHEMISTRY METHOD 08/03/2024 7:22 PM EDT [facility] HDL 52 >=40 mg/dL LAB CHEMISTRY METHOD 08/03/2024 7:22 PM EDT [facility] LDL Calculated 51 0 - 100 mg/dL LAB CHEMISTRY METHOD 08/03/2024 7:22 PM EDT [facility] VLDL Cholesterol Emmanuel 14.2 mg/dL LAB CHEMISTRY METHOD 08/03/2024 7:22 PM EDT [facility] Non HDL Chol. (LDL+VLDL) 65 <145 mg/dL LAB CHEMISTRY METHOD 08/03/2024 7:22 PM T [facility] Chol/HDL Ratio 2.3 0.0 - 4.4 LAB CHEMISTRY METHOD 08/03/2024 7:22 PM T [facility] Blood Venous blood specimen / Unknown Venipuncture / Unknown 08/03/2024 1:48 PM EDT 08/03/2024 1:48 PM EDT us Daniel King MD LAB BLOOD ORDERABLES Final Result [facility] [address] [place] [address], [place] [phone] * MG Mammo Digital Screening w Galdino [...] Signed Date: 02/02/2024 13:03 ET Workstation ID: [id number] Transcribed By: Self Edit Transcribed Date: 02/02/2024 [...] None Computer-aided detection was employed with the [employer] AI 3-D. TISSUE DENSITY: The breasts are [...] None Computer-aided detection was employed with the [employer] AI 3-D. TISSUE DENSITY: The breasts are [...] Signed Date: 02/02/2024 13:03 ET Workstation ID: [id number] Transcribed By: Self Edit Transcribed Date: 02/02/2024 12:52 ET Rajesh Morales MD IMG BI PROCEDURES Final Result * Depression Screening (07/22/2023) Depression Screening Abstracted us Historical Provider HEALTH MAINTENANCE Final Result * [facility] DEXA AXIAL SKELETON (05/23/2020 5:08 PM EST) Anatomical Region Laterality Modality Mammography 05/23/2020 10:0 4 AM EST Narrative 05/23/2020 5:08 PM EST [facility] Diagnostic Imaging Department [address] [place] [address] Patient: ELIASBridgetMEME /Age/Sex: 1955 - 65 - F Unit#: [id number] [facility] CLI [facility] Ordering Physician: RAJESH MORALES MD [facility] Dexa Axial Skeleton - 05/23/201139 History: Low estrogen state due to menopause. Comparison: 07/12/15 Findings: Bone densitometry is performed utilizing dual energy x-ray absorptiometry (DXA) in the [employer] unit. The lumbar spine and proximal femora [...] 4.9 percent Hip 0.9 percent. IMPRESSION: Osteopenia. [id number] Dictating Physician: GABRIELLE JAMISON MD Electronically Signed by: GABRIELLE JAMISON MD Dic Date/Time: 05/23/201706 Sign date/Time: 05/23/201707 Procedure Note Gabrielle Jamison MD - 03/18/2022 [facility] Diagnostic Imaging Department [address] [place] [address] Patient: MEME NARANJO Bridget /Age/Sex: 1955 - 65 - F Unit#: [id number] [facility] Mnemonic[facility] Ordering Physician: RAJESH MORALES MD [facility] Dexa Axial Skeleton - 05/23/20 114 History: Low estrogen state due to menopause. Comparison: 07/12/15 Findings: Bone densitometry is performed utilizing dual energy x-ray absorptiometry(DXA) in the [employer] unit. The lumbar spine and proximal femora [...] Osteoporotic 4.9percent Hip 0.9 percent. IMPRESSION: Osteopenia. [id number] Dictating Physician: GABRIELLE JAMISON MD Electronically Signed by: GABRIELLE JAMISON MD Dic Date/Time: 05/23/201706 Sign date/Time: 05/23/201707 [facility] Andrew PRAKASH IMG BI PROCEDURES Final Result from Last 3 Months or Most Recently Relevant to Health Maintenance Insurance [employer] MED[employer] Member Subscriber Plan / Payer (Ef fective 2022-Present) Name:Meme Naranjo Relation to Subscriber:Self Name:MarcellaSiriane Bridget Payer ID:[id number] Group ID:[id number] Type:Not on file Address: [place] [address] [address] [address] Advance Directives Documents on File Type Date Recorded Patient Medical Practitioners Expl anation Advance Directives and Living Will 10/17/2024 10:32 AM [facility] y * Full Code - [...] Relationship Healthcare Agent Relationshi p Communication [facility] Care Agent Norberto Naranjo Relative First Alternate Health Care Agent Care Teams Cdl Flatbed Truck Driver Relationship Specialty Start Date End Date Rajesh Morales MD [address] [place] [phone] PCP - General Internal Medicine 01/29/24
--- OUTSIDE RECORDS SUMMARY | 2024-12-12 12:31 | XMS_ITS | Encounter Summary ---
Author Organization [facility] Address [address] [place] [address] Care Team Providers Care Farrowing Manager Name Role Phone Maria Esther Morales MD Primary Care Provider [phone] Encounter Details Date Type Department Care Team (Late st Contact Info) Description 10/18/[address] [facility] - Main Lab 299 [facility] [place] [phone] Ivelisse Mckay MD [address] [place] [address] Essential (primary) hypertension; Anemia, unspecified; Chronic kidney disease, stage 3 unspecified (CMS/HCC V24, CMS/[facility] V28); Vitamin D deficiency, unspecified; Other specified disorders of bone density and structure, unspecified site; Spastic hemiplegia affecting left dominant side (CMS/[facility] V24, CMS/[facility] V28) Social History Tobacco Use [...] 11:15 AM EDT Office Visit Internal Medicine [facility] [address] [phone] Maria Esther Morales MD 175 [facility] 200 [place] [phone] 01/16/2025 3:15 PM EDT Office Visit Orthopedic Surgery - [place] [address] [phone] Ranjeet Vasquez DPM [address] [phone] documented as of this encounter Procedures Procedure Name Priority Date/Time Associated Diagnosis Comments COMPLETE BLOOD COUNT Routine 10/18/2024 6:20 AM EDT Essential (primary) hypertension Anemia, unspecified Chronic kidney disease, stage 3 unspecified ([facility] V24, [facility] V28) Vitamin D deficiency, unspecified Other specified disorders of bone density and structure, unspecified site Spastic hemiplegia affecting left dominant side ([facility] V24, [facility] V28) COMPREHENSIVE METABOLIC PANEL Routine 10/18/2024 6:20 AM EDT Essential (primary) hypertension Anemia, unspecified Chronic kidney disease, stage 3 unspecified ([facility] V24, [facility] V28) Vitamin D deficiency, unspecified Other specified disorders of bone density and structure, unspecified site Spastic hemiplegia affecting left dominant side ([facility] V24, [facility] V28) documented in this encounter Results * (ABNORMAL) Comprehensive metabolic panel (10/18/2024 6:20 AM EDT) Sodium 141 133 - 145 mmol/L LAB CHEMISTRY METHOD 10/18/2024 4:06 PM [facility] Potassium 3.5 3.5 - 5.5 mmol/L LAB CHEMISTRY METHOD 10/18/2024 4:06 PM [facility] Chloride 109 96 - 110 mmol/L LAB CHEMISTRY METHOD 10/18/2024 4:06 PM [facility] CO2 25 21 - 32 mmol/L LAB CHEMISTRY METHOD 10/18/2024 4:06 PM [facility] Anion Gap 7 3 - 11 LAB CHEMISTRY METHOD 10/18/2024 4:06 PM [facility] Glucose 75 70 - 100 mg/dL LAB CHEMISTRY METHOD 10/18/2024 4:06 PM [facility] BUN 54(H) 5 - 25 mg/dL LAB CHEMISTRY METHOD 10/18/2024 4:06 PM [facility] Creatinine 2.28(H) 0.50 - 1.10 mg/dL LAB CHEMISTRY METHOD 10/18/2024 4:06 PM [facility] eGFR 23(L) >=60 mL/min/1. 73m2 LAB CHEMISTRY METHOD 10/18/2024 4:06 PM [facility] Comment:Calculation based on the Chronic Kidney Disease Epidemiology Collaboration (CKD-EPI) equation refit without adjustment for race. BUN/Creatinine Ratio 23.7 LAB CHEMISTRY METHOD 10/18/2024 4:06 PM [facility] Calcium 9.1 8.5 - 10.5 mg/dL LAB CHEMISTRY METHOD 10/18/2024 4:06 PM [facility] AST (SGOT) 14 10 - 42 unit/L LAB CHEMISTRY METHOD 10/18/2024 4:06 PM [facility] ALT (SGPT) 14 10 - 60 unit/L LAB CHEMISTRY METHOD 10/18/2024 4:06 PM [facility] Alkaline Phosphatase 90 42 - 121 unit/L LAB CHEMISTRY METHOD 10/18/2024 4:06 PM [facility] Total Protein 6.5 6.0 - 8.0 g/dL LAB CHEMISTRY METHOD 10/18/2024 4:06 PM [facility] Albumin 3.6 3.2 - 5.0 g/dL LAB CHEMISTRY METHOD 10/18/2024 4:06 PM [facility] Total Bilirubin 0.5 0.0 - 1.4 mg/dL LAB CHEMISTRY METHOD 10/18/2024 4:06 PM [facility] Blood Venous blood specimen / Unknown Venipuncture / Unknown 10/18/2024 6:20 AM EDT 10/18/2024 11:15 AM EDT us Ivelisse Mckay MD LAB BLOOD ORDERABLES Final Resul t [facility] [address] [place] [address], * (ABNORMAL) Complete blood count (10/18/2024 6:20 AM EDT) [facility] WBC 5.5 4.8 - 10.8 K/mcL LAB HEMETOLOGY METHOD 10/18/2024 11:59 AM [facility] RBC 3.20(L) 3.80 - 4.80 M/mcL LAB HEMETOLOGY METHOD 10/18/2024 11:59 AM [facility] Hemoglobin 10.3(L) 11.5 - 16.0 g/dL LAB HEMETOLOGY METHOD 10/18/2024 11:59 AM [facility] Hematocrit 31.0(L) 35.0 - 47.0 % LAB HEMETOLOGY METHOD 10/18/2024 11:59 AM [facility] MCV 96.9 79.0 - 98.0 FL LAB HEMETOLOGY METHOD 10/18/2024 11:59 AM [facility] MCH 32.2(H) 27.0 - 32.0 pcg LAB HEMETOLOGY METHOD 10/18/2024 11:59 AM [facility] MCHC 33.2 32.0 - 37.0 g/dL LAB HEMETOLOGY METHOD 10/18/2024 11:59 AM [facility] RDW 12.5 11.0 - 15.0 % LAB HEMETOLOGY METHOD 10/18/2024 11:59 AM [facility] Platelets 146 130 - 400 K/mcL LAB HEMETOLOGY METHOD 10/18/2024 11:59 AM [facility] MPV 10.7 7.0 - 11.0 FL LAB HEMETOLOGY METHOD 10/18/2024 11:59 AM [facility] NRBC 0.0 <1.0 % LAB HEMETOLOGY METHOD 10/18/2024 11:59 AM [facility] NRBC Absolute 0.00 <0.10 K/mcL LAB HEMETOLOGY METHOD 10/18/2024 11:59 AM EDT [facility] Blood Venous blood specimen / Unknown Venipuncture / Unknown 10/18/2024 6:20 AM EDT 10/18/2024 11:15 AM EDT us Ivelisse Mckay MD LAB BLOOD ORDERABLES Final Resul t [facility] [address] [place] [address], documented in this encounter Visit Diagnoses Diagnosis Essential (primary) hypertension Unspecified essential hypertension Anemia, unspecified Chronic kidney disease, stage 3 unspecified ([facility] V24, [facility] V28) Vitamin D deficiency, unspecified Other specified disorders of bone density and structure, unspecified site Spastic hemiplegia affecting left dominant side ([facility] V24, [facility] V28) documented in this encounter Care Teams Farrowing Manager Relationship Specialty Start Date End Date Maria Esther Morales MD [address] [place] [phone] PCP - General Internal Medicine 01/29/24 documented as of this encounter
== END 2024-12-12 10:01 | disposition home or self-care (01) ==
LOC: HO.NEURO 10:00
PROVIDERS: PCP Internal Medicine; Visit Provider Physical Medicine & Rehabilitation
DX: I69.351 Hemiplegia and hemiparesis following cerebral infarction affecting right dominant side (principal)
CPT/HCPCS: 64642; 95874; J0585

== ENCOUNTER 2025-01-26 09:59 | Outpatient (REF) | payer OTHER, SELFPAY ==
--- NOTE | ~2025-01-26 | XR_ITS ---
EXAMINATION: XR SHOULDER 2 OR MORE VIEWS LEFT HISTORY: M25.512 - Pain in left shoulder COMPARISON: There are no prior studies available for comparison. FINDINGS: Two views of the left shoulder are submitted. Evaluation is limited by difficulty in patient positioning. Osseous mineralization is normal. There is no fracture or dislocation. The glenohumeral and acromioclavicular joint spaces are preserved. The soft tissues are unremarkable. XR/XR shoulder LT min 2V IMPRESSION: Unremarkable examination of the left shoulder. Electronically signed by: Donald Fraire MD 01/26/2025 10:59 AM EDT
== END 2025-01-26 10:00 | disposition home or self-care (01) ==
LOC: HO.HOSX 09:59
PROVIDERS: PCP Internal Medicine; Visit Provider Physical Medicine & Rehabilitation
DX: G81.14 Spastic hemiplegia affecting left nondominant side (principal); G81.11 Spastic hemiplegia affecting right dominant side; S43.002A Unspecified subluxation of left shoulder joint, initial encounter; Z79.82 Long term (current) use of aspirin; Z79.899 Other long term (current) drug therapy
CPT/HCPCS: 73030; 99212

== ENCOUNTER 2025-01-26 09:59 | Outpatient (AMB) | payer OTHER, SELFPAY ==
--- NOTE | 2025-01-26 10:08 | A.OFFVIS_ITS ---
Intake Visit Reasons: OV-Left spastic hemiplegia Intake Note: Meme is a 69 year old female who presents today for a follow up visit for his right spastic hemiparesis. She had Botox injections on 12/12/24. At today's visit she states that her injection wore off a few weeks ago and now her pain has increased. 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 Left upper extremity spasticity. Treated with botulinum toxin injections by Dr. Mercer until he retired. Last injection with Dr. Mercer 08/20/2023. Transferred to Dr. Mercado for the injections, who referred patient to pr. Ambulatory, using a cane. Not driving. Needs assistance from SENIOR MANAGING DIRECTOR 17.5 hours/week - for meal prep, bathing, dressing. Mod I with toileting. Injection under me 08/04/2024, 12/12/2024.. Injected 150 units total to left elbow flexors and pronator. Patient reports good relief of stiffness but feels like it is wearing out. She feels pain on left shoulder and arm. Denies any recent falls or injury. [facility] Medical History (Updated 01/26/25 @ 10:27 by Shyla Burgos MD) History of hemorrhagic stroke with residual hemiparesis Social History (Updated 08/04/24 @ 10:44 by Amy Patel [facility]) Current occupational status: retired and disabled Physical Exam Can actively extend left elbow to -15 degrees now. Can actively pronate left wrist/forearm to almost full. Stiff left shoulder. Assessment & Plan Assessment & Plan (1) Left spastic hemiparesis: Code(s): G81.14 - Spastic hemiplegia affecting left nondominant side Category: Medical (2) Right spastic hemiparesis: Code(s): G81.11 - Spastic hemiplegia affecting right dominant side Category: Medical (3) Shoulder subluxation, left: Code(s): S43.002A - Unspecified subluxation of left shoulder joint, initial encounter Category: Medical Qualifiers: Encounter type: initial encounter Qualified Code(s): S43.002A - Unspecified subluxation of left shoulder joint, initial encounter (4) History of hemorrhagic stroke with residual hemiparesis: Code(s): I69.359 - Hemiplegia and hemiparesis following cerebral infarction affecting unspecified side Category: Medical Plan Very good improvement from last injection where now she can actively extend and pronate left upper extremity. However it seems to be wearing off already per patient, therefore we will increase total dose of 200 units on next injection. Also sending patient for left shoulder x-ray to rule out subluxation. We may consider steroid injection to left shoulder in the future. Next botulinum toxin injection is on 03/01/2025 14:00. Assessment and plan discussed with patient, and patient was agreeable. All questions were answered thoroughly. Shyla Burgos MD, FINESSE Board Certified, [place] Board [employer] and Rehabilitation (ABPMR) Board Certified, [place] Board [employer] Electrodiagnostic [employer] (ABEM) Orders: Orders XR shoulder LT min 2V Today M25.512 - Pain in left shoulder, S43.002A - Unspecified subluxation of left shoulder joint, initial encounter Coding Level of Care Code Est Pt Level 4 (49618) Diagnoses Left spastic hemiparesis G81.14 Right spastic hemiparesis G81.11 Subluxation of left shoulder joint, initial encounter S43.002A Encounter type: initial encounter History of hemorrhagic stroke with residual hemiparesis I69.359
--- OUTSIDE RECORDS SUMMARY | 2025-01-26 11:53 | XMS_ITS | Data Portability ---
Author Organization [employer] [facility] [employer] [facility] Address [address] [place] [address] Care Team Providers Care Engineer Rf Deployment Name Role Phone [facility] Referring Provider [phone] Assessment No assessment recorded. Plan of Treatment Reminders Order Date Submit Date Provider Last Modified By Organization Details Last Modified Time Details Appointments None recorded. Lab None recorded. Referral None recorded. Procedures None recorded. Surgeries None recorded. Imaging None recorded. Medication Orders codeine 10 mg-guaife nesin 100 mg/5 mL oral liquid 023 023 [email or web address] [id number], [address] [place], [address], 3 14:25:39 Patient TargetsNo targets recorded. Patient [...] in Arterial blood by Pulse oximetry Systolic And Diastolic Provider Name and Address Organization Details Last Updated DateTime 3 89941.8 56 g 18 /min 86 /min 157.48 cm 99.8 [degF] 98 % 98 % 127/83 mm[Hg] Not Available [facility] - production 14:20:17 Social History None recorded. Functional Status None recorded. Mental Status None recorded. Family History Nothing Reported. Medical History No medical history recorded. Gynecological HistoryNo gynecological history recorded. Obstetrics History GPAL:G 0 P 0 0 0 0 Past Encounters Encounter ID Performer Location Encounter Start Date Encounter Closed Date Diagnosis/Indication Diagnosis SNOMED-CT Code Diagnosis ICD10 Code Diagnosis IMO Codes Diagnosis Note [id number] Shea Mars MD Main - [facility] [address] [place] [phone] 03/09/2023 14:20:14 10/13/2024 23:09:31 Viral upper respiratory tract infection 204983380 J06.9 runny eyes, nose, cough worse at [...] Member ID Altman Member ID Guarantor Name 10/14/2024 1 [facility] - DOS ON OR AFTER 2022 - DUAL ELIGIBLE - SNF OPTIONS AND ONE CARE (MEDICARE REPLACEMENT/ADV ANTAGE - HMO) Meme Naranjo [id number] Meme Naranjo Notes Date Note Type Note Provider Name and Address Organization Details Recorded Time 03/09/2023 text/html [facility] Nursing Assessment: Chief Complaints: URI Allergies: Unknown Comments: Member reports having a cough/cold/mika estion - Denies GRAYSON and body aches - Denies fever x1 week - Yonathan Mars MD 30 [facility],[address], [place], [address], DAVID - [employer] 03/09/2023 14:26:31 OBGyn Episode No OBEpisode recorded.
--- OUTSIDE RECORDS SUMMARY | 2025-01-26 11:53 | XMS_ITS | Encounter Summary ---
Author Organization [facility] [address] Address [address] [place] [address] Care Team Providers Care Supervisor Road Administrator Name Role Phone Maria Esther Morales MD Primary Care Provider [phone] Encounter Details Date Type Department Care Team (Late st Contact Info) Description 10/26/2024 Lab Requisition [facility] - Main Lab 299 [facility] [place] [phone] Ivelisse Mckay MD [address] [place] [address] Chronic kidney disease, unspecified Social History Tobacco [...] Care Team (Late st Contact Info) Description 02/03/2025 11:15 AM EST Appointment [facility] [address] [place] [phone] 02/20/2025 2:30 PM EST Office Visit Orthopedic Surgery - [place] 250 175 [facility] 250 [place] [phone] Ranjeet Vasquez DPM [address] [place] [phone] 06/02/2025 11:15 AM EST Office Visit Internal Medicine - [place] 175 [facility] 200 [place] [phone] Maria Esther Morales MD [address] [place] [phone] documented as of this encounter Procedures Procedure Name Priority Date/Time Associated Diagnosis Comments COMPLETE BLOOD COUNT Routine 10/26/2024 6:43 AM EDT Chronic kidney disease, unspecified BASIC METABOLIC PANEL Routine 10/26/2024 6:43 AM EDT Chronic kidney disease, unspecified documented in this encounter Results * (ABNORMAL) Basic metabolic panel (10/26/2024 6:43 AM EDT) Sodium 140 133 - 145 mmol/L LAB CHEMISTRY METHOD 10/26/2024 9:54 AM [facility] Potassium 3.1(L) 3.5 - 5.5 mmol/L LAB CHEMISTRY METHOD 10/26/2024 9:54 AM [facility] Chloride 109 96 - 110 mmol/L LAB CHEMISTRY METHOD 10/26/2024 9:54 AM [facility] CO2 25 21 - 32 mmol/L LAB CHEMISTRY METHOD 10/26/2024 9:54 AM [facility] Anion Gap 6 3 - 11 LAB CHEMISTRY METHOD 10/26/2024 9:54 AM [facility] Glucose 76 70 - 100 mg/dL LAB CHEMISTRY METHOD 10/26/2024 9:54 AM [facility] BUN 43(H) 5 - 25 mg/dL LAB CHEMISTRY METHOD 10/26/2024 9:54 AM [facility] Creatinine 1.53(H) 0.50 - 1.10 mg/dL LAB CHEMISTRY METHOD 10/26/2024 9:54 AM [facility] eGFR 37(L) >=60 mL/min/1. 73m2 LAB CHEMISTRY METHOD 10/26/2024 9:54 AM [facility] Comment:Calculation based on the Chronic Kidney Disease Epidemiology Collaboration (CKD-EPI) equation refit without adjustment for race. BUN/Creatinine Ratio 28.1 LAB CHEMISTRY METHOD 10/26/2024 9:54 AM [facility] Calcium 9.7 8.5 - 10.5 mg/dL LAB CHEMISTRY METHOD 10/26/2024 9:54 AM [facility] Blood Venous blood specimen / Unknown Venipuncture / Unknown 10/26/2024 6:43 AM EDT 10/26/2024 8:30 AM EDT Ivelisse Mckay MD LAB BLOOD ORDERABLES Final Resul t [facility] [address] [place] [address], * (ABNORMAL) Complete blood count (10/26/2024 6:43 AM EDT) WBC 5.0 4.8 - 10.8 K/mcL LAB HEMETOLOGY METHOD 10/26/2024 8:50 AM [facility] RBC 3.00(L) 3.80 - 4.80 M/mcL LAB HEMETOLOGY METHOD 10/26/2024 8:50 AM EDT [facility] Hemoglobin 9.5(L) 11.5 - 16.0 g/dL LAB HEMETOLOGY METHOD 10/26/2024 8:50 AM T [facility] Hematocrit 28.0(L) 35.0 - 47.0 % LAB HEMETOLOGY METHOD 10/26/2024 8:50 AM [facility] MCV 93.3 79.0 - 98.0 FL LAB HEMETOLOGY METHOD 10/26/2024 8:50 AM EDT [facility] MCH 31.7 27.0 - 32.0 pcg LAB HEMETOLOGY METHOD 10/26/2024 8:50 AM EDT [facility] MCHC 33.9 32.0 - 37.0 g/dL LAB HEMETOLOGY METHOD 10/26/2024 8:50 AM [facility] RDW 12.3 11.0 [...] t [facility] [address] [place] [address], documented in this encounter Visit Diagnoses Diagnosis Chronic kidney disease, unspecified documented in this encounter Care Teams Supervisor Road Administrator Relationship Specialty Start Date End Date Maria Esther Morales MD [address] [phone] PCP - General Internal Medicine 01/29/24 documented as of this encounter
--- OUTSIDE RECORDS SUMMARY | 2025-01-26 11:53 | XMS_ITS | Encounter Summary ---
Author Organization [facility] Address [address] [place] [address] Care Team Providers Care Criminal Justice Teacher Name Role Phone Maria Esther Morales MD Primary Care Provider [phone] Encounter Details Date Type Department Care Team (Late st Contact Info) Description 10/28/2024 Lab Requisition [facility] - Main Lab 299 [facility] [place] [phone] Ivelisse Mckay MD [address] [place] [address] Hypercalcemia; Hyperlipidemia, unspecified; Hypomagnesemia Social History Tobacco [...] AM EST Appointment [facility] [address] [place] [phone] 02/20/2025 2:30 PM EST Office Visit Orthopedic Surgery - [place] 250 175 [facility] 250 [place] [phone] Ranjeet Vasquez DPM 230 [place] [phone] 06/02/2025 11:15 AM EST Office Visit Internal Medicine - [place] 175 [facility] 200 [place] [phone] Maria Esther Morales MD 230 [place] [phone] documented as of this encounter Procedures Procedure Name Priority Date/Time Associated Diagnosis Comments BASIC METABOLIC PANEL Routine 10/28/2024 8:42 AM EDT Hypercalcemia Hyperlipidemia, unspecified Hypomagnesemia documented in this encounter Results * (ABNORMAL) Basic metabolic panel (10/28/2024 8:42 AM EDT) Sodium 141 133 - 145 mmol/L LAB CHEMISTRY METHOD 10/28/2024 12:47 PM [facility] Potassium 3.7 3.5 - 5.5 mmol/L LAB CHEMISTRY METHOD 10/28/2024 12:47 PM [facility] Chloride 110 96 - 110 mmol/L LAB CHEMISTRY METHOD 10/28/2024 12:47 PM [facility] CO2 25 21 - 32 mmol/L LAB CHEMISTRY METHOD 10/28/2024 12:47 PM [facility] Anion Gap 6 3 - 11 LAB CHEMISTRY METHOD 10/28/2024 12:47 PM [facility] Glucose 75 70 - 100 mg/dL LAB CHEMISTRY METHOD 10/28/2024 12:47 PM [facility] BUN 42(H) 5 - 25 mg/dL LAB CHEMISTRY METHOD 10/28/2024 12:47 PM [facility] Creatinine 1.46(H) 0.50 - 1.10 mg/dL LAB CHEMISTRY METHOD 10/28/2024 12:47 PM [facility] eGFR 39(L) >=60 mL/min/1. 73m2 LAB CHEMISTRY METHOD 10/28/2024 12:47 PM [facility] Comment:Calculation based on the Chronic Kidney Disease Epidemiology Collaboration (CKD-EPI) equation refit without adjustment for race. BUN/Creatinine Ratio 28.8 LAB CHEMISTRY METHOD 10/28/2024 12:47 PM [facility] Calcium 10.2 8.5 - 10.5 mg/dL LAB CHEMISTRY METHOD 10/28/2024 12:47 PM [facility] Blood Venous blood specimen / Unknown Venipuncture / Unknown 10/28/2024 8:42 AM EDT 10/28/2024 11:14 AM EDT us Ivelisse Mckay MD LAB BLOOD ORDERABLES Final Resul t [facility] ([facility] [address] [place] [address], documented in this encounter Visit Diagnoses Diagnosis Hypercalcemia Hyperlipidemia, unspecified Hypomagnesemia Disorders of magnesium metabolism documented in this encounter Care Teams Criminal Justice Teacher Relationship Specialty Start Date End Date Maria Esther Morales MD 175 [facility] 200 [place] [phone] PCP - General Internal Medicine 01/29/24 documented as of this encounter
--- OUTSIDE RECORDS SUMMARY | 2025-01-26 11:53 | XMS_ITS | Clinical Summary ---
Author Organization [facility] Address [address] [facility] [address] [place] [address] Phone Care Team Providers Care Coal Hiker Name Role Phone Maria Esther Morales MD Primary Care Provider [phone] Allergies No known active allergies Medications aspirin [...] [facility] [address] [place] [address] [place] [address] Daniel King MD from Last 3 Months Family History Medical History Relation Comments Kidney disease Child [id number] Kidney Transplant Hypertension Mother Hypertension Sibling 1 [...] Office Visit [facility] [address] [place] [address] [phone] Daniel iKng MD [address] [place] [phone] 02/10/2025 Orders Only [facility] [place] [id number] [phone] Daniel King MD [address] [place] [phone] Stage 3b chronic kidney disease (HCC); Proteinuria, not otherwise specified; Hypertension; Hypercalcemia; Hyperaldosteronism, not otherwise specified (HCC); Edema, not otherwise specified; Cerebrovascular accident (HCC); Anemia of chronic disease Health Maintenance Due Date Last Done Comments [...] patient's age to complete this topic Insurance [facility] ([id number]) [facility] MCR ([id number]) Care Teams Coal Hiker Relationship Specialty Start Date End Date Maria Esther Morales MD 175 [facility] 200 [place] [phone] PCP - General 04/09/20
--- OUTSIDE RECORDS SUMMARY | 2025-01-26 11:53 | XMS_ITS | Clinical Summary ---
Author Organization [facility] Address [address] [place] [address] Phone Care Team Providers Care Director Clinical Research Name Role Phone Rajesh Morales MD Primary Care Provider [phone] Allergies No known active allergies Medications carvediloL (COREG) 6.25 mg tablet Take 1 tablet (6.25 mg total) by mouth 1 (one) time each day in the morning. 01/21/20 23 Active hydrALAZINE (APRESOLINE) 25 mg tablet TAKE 1 TABLET BY MOUTH TWICE A DAY 180 tablet 1 07/15/19 25 Active aspirin 81 mg EC tablet TAKE 1 TABLET BY MOUTH EVERY DAY 90 tablet 1 07/15/19 25 Active diaper,brief,ad ult,disposable (Procare Adult Brief) miscIndications :Urinary incontinence, unspecified type 1 each 1 (one) time each day. 225 each 11 11/08/19 25 Active chlorthalidone (HYGROTON) 25 mg tablet TAKE 1 TABLET BY MOUTH EVERY DAY 90 tablet 1 11/09/19 25 Active lisinopriL (PRINIVIL,ZESTR IL) 30 mg tablet TAKE 1 TABLET BY MOUTH EVERY DAY 90 tablet 1 11/09/19 25 Active cholecalciferol (VITAMIN D-3) 50 mcg (2,000 unit) tablet Take 1 tablet (2,000 Units total) by mouth 1 (one) time each day. 90 tablet 3 12/29/19 25 Active magnesium oxide (MAG-OX) 400 mg (241.3 elemental magnesium) tablet Take 1 tablet (400 mg total) by mouth 1 (one) time each day. 90 tablet 1 12/29/19 25 Active atorvastatin (LIPITOR) 20 mg tablet TAKE 1 TABLET BY MOUTH EVERY DAY 90 tablet 1 01/03/20 25 Active carBAMazepine (CARBATROL) 100 mg 12 hr capsule Take 1 capsule (100 mg total) by mouth 2 (two) times a day. 09/19/19 025 Discontinued(Ex pired) cholecalciferol (VITAMIN D-3) 50 mcg (2,000 unit) tablet Take 1 tablet (2,000 Units total) by mouth 1 (one) time each day. 10/02/19 025 Discontinued(Re order) magnesium oxide (MAG-OX) 400 mg (241.3 elemental magnesium) tablet TAKE 1 TABLET BY MOUTH EVERY DAY 90 tablet 1 04/25/19 25 025 Discontinued(Re order) atorvastatin (LIPITOR) 20 mg tablet TAKE 1 TABLET BY MOUTH EVERY DAY 90 tablet 1 07/15/19 25 025 Discontinued ferrous sulfate 325 mg (65 mg elemental iron) tablet TAKE 1 TABLET BY MOUTH EVERY DAY 90 tablet 1 11/09/19 025 Discontinued(Ex pired) Active Problems Problem Noted Date Diagnosed Date Spastic hemiplegia of left d ominant side as late effect of cerebral infarction ([facility] V24, [facility] V28) 07/02/2024 Cerebrovascular accident (CVA) ([facility] V24, [facility] V28) 10/20/2021 Proteinuria 10/20/2021 Edema 10/17/2021 Hemiparesis ([facility] V24, [facility] V28) Assessment & Plan (12/28/2024 12:31 PM EDT): Hyperaldosteronism, unspecified ([facility] V24) Hypercalcemia 10/17/2021 Assessment & Plan (12/28/2024 12:31 PM EDT): Renal stone 10/17/2021 CKD (chronic kidney disease) stage 3, GFR 30-59 ml/min ([facility] V24, [facility] V28) 09/18/2017 Assessment & Plan (12/28/2024 12:31 PM EDT): Hypertension 09/18/2017 Assessment & Plan (12/28/2024 12:31 PM EDT): Hemiplegia affecting nondomi nant side ([facility] V24, [facility] V28) 02/29/2016 Anemia in chronic kidney disease 02/26/2016 Vitamin D deficiency 07/24/2015 Osteopenia 07/12/2015 Encounters Date Type Department Care Team Description 01/16/2025 3:15 PM EDT Office Visit Orthopedic Surgery [facility] [address] [phone] Ranjeet Vasquez, DPM Closed fracture of base of fifth metatarsal bone of left foot (Primary Dx); Left foot pain 01/16/2025 Telephone Orthopedic Surgery [facility] [address] [phone] Rachna Mccall 01/11/2025 10:00 AM EDT Office Visit [facility] Hematology Oncology [address] [place] [phone] Bonnie Hanson PA Anemia, unspecified type (Primary Dx) 01/09/2025 Telephone Internal Medicine [facility] [address] [phone] Mallorie Diego [place] 12/28/2024 11:15 AM EDT Office Visit Internal Medicine [facility] [address] [phone] Rajesh Morales MD Primary hypertension (Primary Dx); Screening for colorectal cancer; Anemia, unspecified type; Hypercalcemia; Hemiparesis as late effect of nontraumatic intracerebral hemorrhage, unspecified laterality ([facility] V24, [facility] V28); Stage 3b chronic kidney disease ([facility] V24, [facility] V28); Encounter for subsequent annual wellness visit (AWV) in Medicare patient 12/28/2024 Telephone Internal Medicine [place] [address] [phone] Rajesh Morales MD 12/14/2024 Telephone Internal Medicine [place] [address] [phone] Mallorie Diego [place] 12/08/2024 Telephone Internal Medicine [place] [address] [phone] Mallorie Diego [place] 12/01/2024 Telephone Internal Medicine [place] [address] [phone] Rajesh Morales MD 11/25/2024 Telephone Internal Medicine [facility] [address] [phone] Rajesh Morales MD 11/16/2024 Telephone Internal Medicine [address] [phone] Mallorie Diego [place] 11/10/2024 Telephone Internal Medicine [address] [phone] Julius Diego [place] 11/09/2024 10:00 AM EDT Office Visit Internal [address] [phone] Rajesh Morales MD Closed fracture of base of fifth metatarsal bone of left foot (Primary Dx); Stage 3b chronic kidney disease (CMS/HCC V24, CMS/HCC V28); Anemia in stage 3b chronic kidney disease (CMS/HCC V24, CMS/HCC V28); Primary hypertension 11/08/2024 Telephone Internal Medicine [facility] [address] [phone] Mallorie Diego [place] 11/08/2024 Telephone Internal Medicine [facility] [address] [phone] Mallorie Diego [place] 11/07/2024 3:45 PM EDT Office Visit Orthopedic Surgery - [place] [address] [place] [phone] Ranjeet Vasquez, DPDesiree Closed fracture of base of fifth metatarsal bone of left foot 11/02/2024 [place] [facility] 175 [facility] [address] [place] [phone] Rajesh Morales MD 11/02/2024 [place] [facility] 175 [facility] [address] [place] [phone] Rajesh oMrales MD 11/01/2024 [place] [facility] 175 [facility] [address] [place] [phone] Rajesh Morales MD 11/01/2024 [place] [facility] 175 [facility] [address] [place] [phone] Rajesh Morales MD 10/28/[address] [facility] [address] [place] [phone] Ivelisse Mckay MD Hypercalcemia; Hyperlipidemia, unspecified; Hypomagnesemia 10/26/[address] [facility] [address] [place] [address] Ivelisse Mckay MD Chronic kidney disease, unspecified from Last 3 Months Immunizations Immunization Administration Dates Next Due Pneumococcal conjugate 13 va lent (Prevnar 13, PCV13) 2mo and older 09/18/2020 Surgical History Surgery Date Site/Laterality Comments TUBAL LIGATION PROCEDURE: HISTORICAL TUBAL LIGATION COLONOSCOPY PROCEDURE: HISTORICAL COLONOSCOPY Medical History Medical History Date Comments Anemia in chronic kidney disease 02/26/2016 DX:Anemia in chronic kidney disease CKD (chronic kidney disease) stage 3, GFR 30-59 ml/min (CMS/HCC V24, CMS/HCC V28) 09/18/2017 DX:CKD (chronic kidney disea se) stage 3, GFR 30-59 ml/min ([facility]) Hemiplegia affecting nondomi nant side (CMS/HCC V24, [facility] V28) 02/29/2016 DX:Hemiplegia affecting non dominant side ([facility]) Hypertension 09/18/2017 DX:Hypertension Osteopenia 07/12/2015 [...] Sign Reading Time Taken Comments Blood Pressure 127/80 01/11/2025 9:08 AM EDT Pulse 72 01/11/2025 9:08 AM EDT Temperature 37.2 C (99 F) 01/11/2025 9:08 AM EDT Respiratory Rate 18 12/28/2024 11:32 AM EDT Oxygen Saturation 100% 01/11/2025 9:08 AM EDT Inhaled Oxygen Concentration - - Weight 49.4 kg (109 lb) 01/11/2025 9:08 AM EDT Height 154.9 cm (5' 1 ) 01/11/2025 9:08 AM EDT Body Mass Index 20.6 01/11/2025 9:08 AM EDT Plan of Treatment Upcoming Encounters Date Type Department Care Team (Late st Contact Info) Description 02/03/2025 11:15 AM EST Appointment [facility] [address] [place] [phone] 02/20/2025 2:30 PM EST Office Visit Orthopedic Surgery [facility] 250 175 [facility] [address] [place] [address] Ranjeet Vasquez, DPM [address] [place] [phone] 06/02/2025 11:15 AM EST Office Visit Internal Medicine [facility] 175 [facility] [address] [place] [address] Rajesh Morales MD [facility] [place] [phone] Health Maintenance Due Date Last Done Comments DTaP,Tdap,and Td Vaccines (1 - Tdap) 1974 Zoster Vaccines (1 of 2) 1974 Pneumococcal Vaccine: 50+ Years (2 of 2 - PCV20 or PCV21) 09/18/2021 09/18/2020 Falls Risk Assessment 03/08/2022 Hepatitis C Screening 03/08/2022 Social Influencers of Health Screening 03/08/2022 COVID-19 Vaccine ( season) 2024 02/05/2021, 07/05/2020, 06/07/2020 Influenza Vaccine (#1) 2024 Medicare Annual Wellness Visit 12/28/2025 12/28/2024 Hypertension/CHF/CAD Annual BMP Blood Test 01/11/2026 01/11/2025, 11/09/2024, 10/28/2024, Additional history exists Breast Cancer Screening 02/01/2026 02/02/20, 01/26/2023, 01/22/2022, Additional history exists Colorectal Cancer Screening: FIT-DNA (Cologuard) 01/10/2028 01/09/2025, 01/09/2025, 01/09/2025 Cholesterol Screening (Lipid Panel) 08/03/2029 08/03/2024, 08/03/2024, 12/25/2023, Additional history exists RSV Immunization Adult Patients (1 - 1-dose 75+ series) 2030 Osteoporosis Screening (Bone Density Screening) 04/19/2034 04/19/2024, 05/23/2020 Depression Screening Completed 12/28/2024, 07/22/19 HIB Vaccines Aged Out No longer eligi [...] Procedure Name Priority Date/Time Associated Diagnosis Comments XR FOOT 3+ VIEWS LEFT Routine 01/16/2025 3:51 PM EDT Closed fracture of base of fifth metatarsal bone of left foot Left foot pain IL PROTEIN ELECTROPHORETIC FRACTIONATION & QUANTITATION SERUM Routine 01/11/2025 9:54 AM EDT Anemia, unspecified type IL IMMUNOFIXATION ELECTROPHORESIS SERUM Routine 01/11/2025 9:54 AM EDT Anemia, unspecified type PROTEIN, TOTAL Routine 01/11/2025 9:54 AM EDT Anemia, unspecified type IMMUNOGLOBULINS IGG, IGA, IGM Routine 01/11/2025 9:54 AM EDT Anemia, unspecified type IMMUNOFIXATION ELECTROPHORESIS Routine 01/11/2025 9:54 AM EDT Anemia, unspecified type CBC WITH AUTO DIFFERENTIAL Routine 01/11/2025 9:54 AM EDT Anemia, unspecified type IMMUNOFIXATION ELECTROPHORESIS Routine 01/11/2025 9:54 AM EDT Anemia, unspecified type KAPPA-LAMBDA QUANTITATIVE FREE LIGHT CHAINS Routine 01/11/2025 9:54 AM EDT Anemia, unspecified type CBC AND DIFFERENTIAL Routine 01/11/2025 9:54 AM EDT Anemia, unspecified type COMPREHENSIVE METABOLIC PANEL Routine 01/11/2025 9:54 AM EDT Anemia, unspecified type LACTATE DEHYDROGENASE Routine 01/11/2025 9:54 AM EDT Anemia, unspecified type PROTEIN ELECTROPHORESIS, SERUM Routine 01/11/2025 9:54 AM EDT Anemia, unspecified type IRON AND TIBC Routine 01/11/2025 9:54 AM EDT Anemia, unspecified type RETICULOCYTE COUNT Routine 01/11/2025 9: 54 AM EDT Anemia, unspecified type THYROID STIMULATING HORMONE WITH REFLEX TO FREE T4 AND FREE T3 Routine 01/11/2025 9:54 AM EDT Anemia, unspecified type VITAMIN B12 AND FOLATE Routine 9:54 AM EDT Anemia, unspecified type HAPTOGLOBIN Routine 01/11/2025 9:54 AM EDT Anemia, unspecified type FERRITIN Routine 01/11/2025 9:54 AM EDT Anemia, unspecified type ERYTHROPOIETIN Routine 01/11/2025 9:54 AM EDT Anemia, unspecified type LAB COLOGUARD COLON CANCER SCREEN Routine 01/09/2025 11:25 AM EDT Screening for colorectal cancer CBC WITH AUTO DIFFERENTIAL Routine 11/09/2024 10:19 [...] 6:43 AM EDT Chronic kidney disease, unspecified LIPID PANEL WITH REFLEX TO DIRECT LDL [...] neoplasm of breast DEPRESSION SCREENING Routine 07/22/2023 [facility] DEXA AXIAL SKELETON Routine 05/23/2020 5:08 PM EST Asymptomatic menopausal state from Last 3 Months or Most Recently Relevant to Health Maintenance Results * XR Foot 3+ Views Left (01/16/2025 3:51 PM EDT) Only the most recent of2 resultswithin the time period is included. Anatomical Region Laterality Modality Lower Extremities, Foot Left Computed Radiography Narrative 01/17/2025 8:38 AM EDT Left foot 3 views Improved consolidation of fifth metatarsal base fracture with trabeculation noted through fracture site compared to previous radiographs taken on 11/07/2024 fracture line is still visible us Ranjeet Vasquez DPM IMG XR PROCEDURES Final R esult * Pathologist Review Immunofixation (01/11/2025 9:54 AM EDT) Pathologist Interpretation 01/12/2025 7:14 PM EDT [facility] Blood Venous blood specimen / Unknown Venipuncture / Unknown 01/11/2025 9:54 AM EDT 01/11/2025 11:31 AM EDT us Bonnie AMADOR LAB BLOOD ORDERABLES Final Re sult [facility] [address] [place] [address], * PATHOLOGIST REVIEW PROTEIN ELECTROPHORESIS (01/11/2025 9:54 AM EDT) Pathologist Interpretation Reviewed by Estee Alexander MD 01/17/2025 12:59 PM EDT [facility] Blood Venous blood specimen / Unknown Venipuncture / Unknown 01/11/2025 9:54 AM EDT 01/11/2025 11:31 AM EDT us Bonnie AMADOR LAB BLOOD ORDERABLES Final Re sult Performing Organization Address [facility]/ZIP Co de Phone Number [facility] [address] [place] [address], [place] [phone] * Thyroid stimulating hormone with reflex to free t4 and free t3 (01/11/2025 9:54 AM EDT) TSH 2.58 0.40 - 4.00 mcIU/mL LAB CHEMISTRY METHOD 01/11/2025 12:59 PM EDT [facility] Blood Venous blood specimen / Unknown Venipuncture / Unknown 01/11/2025 9:54 AM EDT 01/11/2025 11:31 AM EDT us Bonnie AMADOR LAB BLOOD ORDERABLES Final Re sult Performing Organization Address [facility] de Phone Number [facility] [address] [place] [address], [place] [phone] * Vitamin B12 and folate (01/11/2025 9:54 AM EDT) Vitamin B-12 575 250 - 900 pcg/mL LAB CHEMISTRY METHOD 01/11/2025 12:15 PM EDT [facility] Folate 6.5 2.8 - 17.0 ng/ml LAB CHEMISTRY METHOD 01/11/2025 12:15 PM EDT [facility] Blood Venous blood specimen / Unknown Venipuncture / Unknown 01/11/2025 9:54 AM EDT 01/11/2025 11:31 AM EDT us Bonnie AMADOR LAB BLOOD ORDERABLES Final Re sult [facility] [address] [place] [address], * (ABNORMAL) [place]-lambda free light chains, quantitative (01/11/2025 9:54 AM EDT) Pathologist [facility] [place] Free Light Chain 7.63(H) 0.33 - 1.94 mg/dL 01/13/2025 12:58 PM EDT [facility] Lambda Free Light Chain 4.62(H) 0.57 - 2.63 mg/dL 01/13/2025 12:58 PM EDT [facility] [place]/Lambda FLC Ratio 1.65 0.26 - 1.65 01/13/2025 12:58 PM EDT [facility] Comment: Test performed at [facility], [address] , [place] [address] Cathy Cedillo MD, PhD - Lead Project Engineer Blood Venous blood specimen / Unknown Venipuncture / Unknown 01/11/2025 9:54 AM EDT 01/11/2025 11:31 AM EDT Bonnie AMADOR LAB BLOOD ORDERABLES Final Re sult [facility] [address] [place] [address] * (ABNORMAL) CBC auto differential (01/11/2025 9:54 AM EDT) Only the most recent of2 resultswithin the time period is included. Pathologist [facility] WBC 5.2 4.8 - 10.8 K/mcL LAB HEMETOLOGY METHOD 01/11/2025 11:44 AM EDT [facility] RBC 3.90 3.80 - 4.80 M/mcL LAB HEMETOLOGY METHOD 01/11/2025 11:44 AM EDT [facility] Hemoglobin 12.0 11.5 - 16.0 g/dL LAB HEMETOLOGY METHOD 01/11/2025 11:44 AM EDT [facility] Hematocrit 37.6 35.0 - 47.0 % LAB HEMETOLOGY METHOD 01/11/2025 11:44 AM [facility] MCV 96.4 79.0 - 98.0 FL LAB HEMETOLOGY METHOD 01/11/2025 11:44 AM [facility] MCH 30.8 27.0 - 32.0 pcg LAB HEMETOLOGY METHOD 01/11/2025 11:44 AM [facility] MCHC 31.9(L) 32.0 - 37.0 g/dL LAB HEMETOLOGY METHOD 01/11/2025 11:44 AM [facility] RDW 12.5 11.0 - 15.0 % LAB HEMETOLOGY METHOD 01/11/2025 11:44 AM [facility] Platelets 176 130 - 400 K/mcL LAB HEMETOLOGY METHOD 01/11/2025 11:44 AM [facility] MPV 10.6 7.0 - 11.0 FL LAB HEMETOLOGY METHOD 01/11/2025 11:44 AM [facility] NRBC 0.0 <1.0 % LAB HEMETOLOGY METHOD 01/11/2025 11:44 AM [facility] NRBC Absolute 0.00 <0.10 K/mcL LAB HEMETOLOGY METHOD 01/11/2025 11:44 AM [facility] Neutrophils Relative 64.1 % LAB HEMETOLOGY METHOD 01/11/2025 11:44 AM [facility] Lymphocytes Relative 25.0 % LAB HEMETOLOGY METHOD 01/11/2025 11:44 AM [facility] Monocytes Relative 7.2 % LAB HEMETOLOGY METHOD 01/11/2025 11:44 AM [facility] Eosinophils Relative 2.7 % LAB HEMETOLOGY METHOD 01/11/2025 11:44 AM EDT [facility] Basophils Relative 0.6 % LAB HEMETOLOGY METHOD 01/11/2025 11:44 AM EDT [facility] Immature Granulocytes Relative 0.4 % LAB HEMETOLOGY METHOD 01/11/2025 11:44 AM EDT [facility] Neutrophils Absolute 3.32 1.50 - 7.00 K/mcL LAB HEMETOLOGY METHOD 01/11/2025 11:44 AM EDT [facility] Lymphocytes Absolute 1.29 1.00 - 5.00 K/mcL LAB HEMETOLOGY METHOD 01/11/2025 11:44 AM EDT [facility] Monocytes Absolute 0.37 0.20 - 1.00 K/mcL LAB HEMETOLOGY METHOD 01/11/2025 11:44 AM EDT [facility] Eosinophils Absolute 0.14 0.00 - 0.50 K/mcL LAB HEMETOLOGY METHOD 01/11/2025 11:44 AM EDT [facility] Basophils Absolute 0.03 0.00 - 0.20 K/mcL LAB HEMETOLOGY METHOD 01/11/2025 11:44 AM EDT [facility] Immature Granulocytes Absolute 0.02 0.00 - 0.03 K/mcL LAB HEMETOLOGY METHOD 01/11/2025 11:44 AM EDT [facility] Blood Venous blood specimen / Unknown Venipuncture / Unknown 01/11/2025 9:54 AM EDT 01/11/2025 11:31 AM EDT us Bonnie AMADOR LAB BLOOD ORDERABLES Final Re sult [facility] [address] [place] [address], * Erythropoietin (01/11/2025 9:54 AM EDT) Erythropoietin 6.3 2.6 - 18.5 mIU/mL 01/13/2025 8:44 PM EDT [facility] Comment: Test performed at [facility], [address] , [place] [address] Cathy Cedillo MD, PhD - Lead Project Engineer Blood Venous blood specimen / Unknown Venipuncture / Unknown 01/11/2025 9:54 AM EDT 01/11/2025 11:31 AM EDT Bonnie AMADOR LAB BLOOD ORDERABLES Final Re sult [facility] [address] [place] [address] * Iron and TIBC (01/11/2025 9:54 AM EDT) Only the most recent of2 resultswithin the time period is included. Pathologist [facility] Iron 81 40 - 150 mcg/dL LAB CHEMISTRY METHOD 01/11/2025 12:15 PM EDT [facility] TIBC 268 250 - 450 mcg/dL LAB CHEMISTRY METHOD 01/11/2025 12:15 PM EDT [facility] Iron Saturation 30 15 - 50 % LAB CHEMISTRY METHOD 01/11/2025 12:15 PM EDT [facility] Blood Venous blood specimen / Unknown Venipuncture / Unknown 01/11/2025 9:54 AM EDT 01/11/2025 11:31 AM EDT Bonnie Hanson [place] LAB BLOOD ORDERABLES Final Re sult [facility] [address] [place] [address], [place] [phone] * (ABNORMAL) Reticulocyte count (01/11/2025 9:54 AM EDT) Pathologist [facility] Retic Ct Abs 0.070 0.030 - 0.090 M/mcL LAB HEMETOLOGY METHOD 01/11/2025 11:44 AM EDT [facility] Retic Ct Pct 1.9(H) 0.7 - 1.7 % LAB HEMETOLOGY METHOD 01/11/2025 11:44 AM EDT [facility] Immature Retic Fract 9.9 2.3 - 15.9 % LAB HEMETOLOGY METHOD 01/11/2025 11:44 AM EDT [facility] Reticulocyte Hemoglobin 34.9 >29.0 pcg LAB HEMETOLOGY METHOD 01/11/2025 11:44 AM EDT [facility] Blood Venous blood specimen / Unknown Venipuncture / Unknown 01/11/2025 9:54 AM EDT 01/11/2025 11:31 AM EDT Bonnie AMAODR LAB BLOOD ORDERABLES Final Re sult Performing Organization Address [facility]/ZIP Co de Phone Number [facility] [address] [place] [address], [place] [phone] * Immunofixation electrophoresis serum (01/11/2025 9:54 AM EDT) [facility] Immunofixation Result, Serum No monoclonal immunoglobulins detected. LAB CHEMISTRY METHOD 01/12/2025 7:14 PM EDT [facility] Blood Venous blood specimen / Unknown Venipuncture / Unknown 01/11/2025 9:54 AM EDT 01/11/2025 11:31 AM EDT Bonnie AMADOR LAB BLOOD ORDERABLES Final Re sult [facility] [address] [place] [address], [place] [phone] * Immunoglobulins IgG, IgA, IgM (01/11/2025 9:54 AM EDT) [facility] Total IgG 1,440 549 - 1,584 mg/dL LAB CHEMISTRY METHOD 01/11/2025 12:15 PM EDT [facility] IgA 169 61 - 348 mg/dL LAB CHEMISTRY METHOD 01/11/2025 12:15 PM EDT [facility] IgM 42 23 - 259 mg/dL LAB CHEMISTRY METHOD 01/11/2025 12:15 PM EDT [facility] Blood Venous blood specimen / Unknown Venipuncture / Unknown 01/11/2025 9:54 AM EDT 01/11/2025 11:31 AM EDT Bonnie AMADOR LAB BLOOD ORDERABLES Final Re sult [facility] [address] [place] [address], * Protein electrophoresis, serum (01/11/2025 9:54 AM EDT) Total Protein 7.3 6.0 - 8.0 g/dL LAB CHEMISTRY METHOD 01/17/2025 12:59 PM EDT [facility] Albumin, Serum 3.5 2.9 - 4.1 g/dL LAB CHEMISTRY METHOD 01/17/2025 12:59 PM T [facility] Alpha 1 Globulin (g/dL) 0.2 0.1 - 0.5 g/dL LAB CHEMISTRY METHOD 01/17/2025 12:59 PM EDT [facility] Alpha 2 Globulin (g/dL) 1.2 0.7 - 1.5 g/dL LAB CHEMISTRY METHOD 01/17/2025 12:59 PM EDT [facility] Beta (g/dL) 0.9 0.7 - 1.5 g/dL LAB CHEMISTRY METHOD 01/17/2025 12:59 PM EDT [facility] Gamma Globulin (g/dL) 1.5 0.7 - 1.9 g/dL LAB CHEMISTRY METHOD 01/17/2025 12:59 PM EDT [facility] SPEP Interpretation Essentially normal pattern. No M-Marcelino seen. LAB CHEMISTRY METHOD 01/17/2025 12:59 PM EDT [facility] Blood Venous blood specimen / Unknown Venipuncture / Unknown 01/11/2025 9:54 AM EDT 01/11/2025 11:31 AM EDT us Bonnie AMADOR LAB BLOOD ORDERABLES Final Re sult Performing Organization Address [facility] Co de Phone Number [facility] [address] [place] [address], [place] [phone] * Protein, total (01/11/2025 9:54 AM EDT) Total Protein 7.3 6.0 - 8.0 g/dL LAB CHEMISTRY METHOD 01/11/2025 11:58 AM EDT [facility] Blood Venous blood specimen / Unknown Venipuncture / Unknown 01/11/2025 9:54 AM EDT 01/11/2025 11:31 AM EDT us Bonnie AMADOR LAB BLOOD ORDERABLES Final Re sult Performing Organization Address [facility] Co de Phone Number [facility] [address] [place] [address], [place] [phone] * Lactate dehydrogenase (01/11/2025 9:54 AM EDT) LDH 153 120 - 246 unit/L LAB CHEMISTRY METHOD 01/11/2025 11:53 AM EDT [facility] Blood Venous blood specimen / Unknown Venipuncture / Unknown 01/11/2025 9:54 AM EDT 01/11/2025 11:31 AM EDT us Bonnie AMADOR LAB BLOOD ORDERABLES Final Re sult Performing Organization Address City/[facility]/ZIP Co de Phone Number [facility] [address] [place] [address], [place] [phone] * (ABNORMAL) Haptoglobin (01/11/2025 9:54 AM EDT) Haptoglobin 223(H) 16 - 200 mg/dL LAB CHEMISTRY METHOD 01/11/2025 12:15 PM EDT [facility] Blood Venous blood specimen / Unknown Venipuncture / Unknown 01/11/2025 9:54 AM EDT 01/11/2025 11:31 AM EDT Bonnie AMADOR LAB BLOOD ORDERABLES Final Re sult Performing Organization Address [facility] Co de Phone Number [facility] [address] [place] [address], [place] [phone] * (ABNORMAL) Ferritin (01/11/2025 9:54 AM EDT) Only the most recent of2 resultswithin the time period is included. Ferritin 348(H) 8 - 252 ng/mL LAB CHEMISTRY METHOD 01/11/2025 12:15 PM EDT [facility] Blood Venous blood specimen / Unknown Venipuncture / Unknown 01/11/2025 9:54 AM EDT 01/11/2025 11:31 AM EDT Bonnie AMADOR LAB BLOOD ORDERABLES Final Re sult Performing Organization Address City/[facility]/ZIP Co de Phone Number [facility] [address] [place] [address], [place] [phone] * (ABNORMAL) Comprehensive metabolic panel (01/11/2025 9:54 AM EDT) Sodium 139 133 - 145 mmol/L LAB CHEMISTRY METHOD 01/11/2025 12:21 PM EDT [facility] Potassium 3.5 3.5 - 5.5 mmol/L LAB CHEMISTRY METHOD 01/11/2025 12:21 PM [facility] Chloride 108 96 - 110 mmol/L LAB CHEMISTRY METHOD 01/11/2025 12:21 PM [facility] CO2 25 21 - 32 mmol/L LAB CHEMISTRY METHOD 01/11/2025 12:21 PM [facility] Anion Gap 6 3 - 11 LAB CHEMISTRY METHOD 01/11/2025 12:21 PM [facility] Glucose 93 70 - 100 mg/dL LAB CHEMISTRY METHOD 01/11/2025 12:21 PM [facility] BUN 41(H) 5 - 25 mg/dL LAB CHEMISTRY METHOD 01/11/2025 12:21 PM [facility] Creatinine 1.97(H) 0.50 - 1.10 mg/dL LAB CHEMISTRY METHOD 01/11/2025 12:21 PM [facility] eGFR 27(L) >=60 mL/min/1. 73m2 LAB CHEMISTRY METHOD 01/11/2025 12:21 PM [facility] Comment:Calculation based on the Chronic Kidney Disease Epidemiology Collaboration (CKD-EPI) equation refit without adjustment for race. BUN/Creatinine Ratio 20.8 LAB CHEMISTRY METHOD 01/11/2025 12:21 PM [facility] Calcium 11.1(H) 8.5 - 10.5 mg/dL LAB CHEMISTRY METHOD 01/11/2025 12:21 PM [facility] AST (SGOT) 30 10 - 42 unit/L LAB CHEMISTRY METHOD 01/11/2025 12:21 PM [facility] ALT (SGPT) 28 10 - 60 unit/L LAB CHEMISTRY METHOD 01/11/2025 12:21 PM [facility] Alkaline Phosphatase 96 42 - 121 unit/L LAB CHEMISTRY METHOD 01/11/2025 12:21 PM [facility] Total Protein 7.6 6.0 - 8.0 g/dL LAB CHEMISTRY METHOD 01/11/2025 12:21 PM EDT [facility] Albumin 4.0 3.2 - 5.0 g/dL LAB CHEMISTRY METHOD 01/11/2025 12:21 PM EDT [facility] Total Bilirubin 0.8 0.0 - 1.4 mg/dL LAB CHEMISTRY METHOD 01/11/2025 12:21 PM EDT [facility] Blood Venous blood specimen / Unknown Venipuncture / Unknown 01/11/2025 9:54 AM EDT 01/11/2025 11:31 AM EDT Bonnie AMADOR LAB BLOOD ORDERABLES Final Re sult [facility] [address] [place] [address], * Cologuard?? colon cancer screening (01/09/2025 11:25 AM EDT) COLOGUARD Negative Negative [facility] Comment: The Cologuard (TM) test was performed on this specimen. NEGATIVE TEST RESULT. A negative Cologuard result indicates a low likelihood that a colorectal cancer (CRC) or advanced adenoma (adenomatous polyps with more advanced pre-malignant features) is present. The chance that a person with a negative Cologuard test has a colorectal cancer is less than 1 in 1500 (negative predictive value >99.9%) or has an advanced adenoma is less than 5.3% (negative predictive value 94.7%). These data are based on a prospective cross-sectional study of 10,000 individuals at average risk for colorectal cancer who were screened with both Cologuard and colonoscopy. (Dieter Larkin al, N Engl J Med 2014;370(14):1286- 1297) The normal value (reference range) for this assay is negative. COLOGUARD RE-SCREENING RECOMMENDATION: Periodic colorectal cancer screening is an important part of preventive healthcare for asymptomatic individuals at average risk for colorectal cancer. Following a negative Cologuard result, the [place] [employer] and U.S. Multi-Society Task Force screening guidelines recommend a Cologuard re-screening interval of 3 years. References: [employer] Guideline for Colorectal Cancer Screening: https://www.cancer.org/cancer/xwpwb-eqvqte-ycmapa/hebciecrn-dqmvvoqki-nlhfmai/ac s-rec ommendations.html.; Terrence DK, Felix CR, Анна CampoverdeK, Colorectal Cancer Screening: Recommendations for Physicians and Patients from the U.S. Multi-Society Task Force on Colorectal Cancer Screening , Am J Gastroenterology 2017; 112:8137-4813. TEST DESCRIPTION: Composite algorithmic analysis of stool DNA-biomarkers with hemoglobin immunoassay. Quantitative values of individual biomarkers are not reportable and are not associated with individual biomarker result reference ranges. Cologuard is intended for colorectal cancer screening of adults of either sex, 45 years or older, who are at average-risk for colorectal cancer (CRC). Cologuard has been approved for use by the U.S. FDA. The performance of Cologuard was established in a cross sectional study of average-risk adults aged 50-84. Cologuard performance in patients ages 45 to 49 years was estimated by sub-group analysis of near-age groups. Colonoscopies performed for a positive result may find as the most clinically significant lesion: colorectal cancer [4.0%], advanced adenoma (including sessile serrated polyps greater than or equal to 1cm diameter) [20%] or non- advanced adenoma [31%]; or no colorectal neoplasia [45%]. These estimates are derived from a prospective cross-sectional screening study of 10,000 individuals at average risk for colorectal cancer who were screened with both Cologuard and colonoscopy. (Dieter Larkin al, N Engl J Med 2014;370(14):0878-9134.) Cologuard may produce a false negative or false positive result (no colorectal cancer or precancerous polyp present at colonoscopy follow up). A negative Cologuard test result does not guarantee the absence of CRC or advanced adenoma (pre-cancer). The current Cologuard screening interval is every 3 years. ([employer] [employer] and U.S. Multi-Society Task Force). Cologuard performance data in a 10,000 patient pivotal study using colonoscopy as the reference method can be accessed at the following location: www.Mang[employer]art[employer]/results. Additional description of the Cologuard test process, warnings and precautions can be found at www.colTelikrd.com. Stool 01/09/2025 11:2 5 AM EDT 01/10/2025 11:24 AM EDT Rajesh Morales MD LAB MOLECULAR DIAGNOSTICS AYAH DE DIOS Final Result [facility] [address] [place] [address] [employer] [address] [place] [place] [address] * (ABNORMAL) Basic metabolic panel (11/09/2024 10:19 AM EDT) Only the most recent of3 resultswithin the time period is included. Sodium 139 133 - 145 mmol/L LAB CHEMISTRY METHOD 11/09/2024 4:54 PM [facility] Potassium 4.4 3.5 - 5.5 mmol/L LAB CHEMISTRY METHOD 11/09/2024 4:54 PM [facility] Chloride 108 96 - 110 mmol/L LAB CHEMISTRY METHOD 11/09/2024 4:54 PM [facility] CO2 28 21 - 32 mmol/L LAB CHEMISTRY METHOD 11/09/2024 4:54 PM [facility] Anion Gap 3 3 - 11 LAB CHEMISTRY METHOD 11/09/2024 4:54 PM [facility] Glucose 80 70 - 100 mg/dL LAB CHEMISTRY METHOD 11/09/2024 4:54 PM [facility] BUN 35(H) 5 - 25 mg/dL LAB CHEMISTRY METHOD 11/09/2024 4:54 PM [facility] Creatinine 1.50(H) 0.50 - 1.10 mg/dL LAB CHEMISTRY METHOD 11/09/2024 4:54 PM [facility] eGFR 38(L) >=60 mL/min/1. 73m2 LAB CHEMISTRY METHOD 11/09/2024 4:54 PM EDT [facility] Comment:Calculation based on the Chronic Kidney Disease Epidemiology Collaboration (CKD-EPI) equation refit without adjustment for race. BUN/Creatinine Ratio 23.3 LAB CHEMISTRY METHOD 11/09/2024 4:54 PM EDT [facility] Calcium 10.3 8.5 - 10.5 mg/dL LAB CHEMISTRY METHOD 11/09/2024 4:54 PM EDT [facility] Blood Venous blood specimen / Unknown Venipuncture / Unknown 11/09/2024 10:19 AM EDT 11/09/2024 10:23 AM EDT us Rajesh Morales MD LAB BLOOD ORDERABLES Final Res ult [facility] [address] [place] [address], * (ABNORMAL) Complete blood count (10/26/2024 6:43 AM EDT) WBC 5.0 4.8 - 10.8 K/[facility] HEMETOLOGY METHOD 10/26/2024 8:50 AM [facility] RBC 3.00(L) 3.80 - 4.80 M/[facility] HEMETOLOGY METHOD 10/26/2024 8:50 AM EDT [facility] Hemoglobin 9.5(L) 11.5 - 16.0 g/dL LAB HEMETOLOGY METHOD 10/26/2024 8:50 AM T [facility] Hematocrit 28.0(L) 35.0 - 47.0 % LAB HEMETOLOGY METHOD 10/26/2024 8:50 AM EDT [facility] MCV 93.3 79.0 - 98.0 FL LAB HEMETOLOGY METHOD 10/26/2024 8:50 AM EDT [facility] MCH 31.7 27.0 - 32.0 pcg LAB HEMETOLOGY METHOD 10/26/2024 8:50 AM EDT [facility] MCHC 33.9 32.0 - 37.0 g/dL LAB HEMETOLOGY METHOD 10/26/2024 8:50 AM EDT [facility] RDW 12.3 11.0 - 15.0 % LAB HEMETOLOGY METHOD 10/26/2024 8:50 AM EDT [facility] Platelets 155 130 - 400 K/mcL LAB HEMETOLOGY METHOD 10/26/2024 8:50 AM EDT [facility] MPV 10.2 7.0 - 11.0 FL LAB HEMETOLOGY METHOD 10/26/2024 8:50 AM EDT [facility] NRBC 0.0 <1.0 % LAB HEMETOLOGY METHOD 10/26/2024 8:50 AM EDT [facility] NRBC Absolute 0.00 <0.10 K/mcL LAB HEMETOLOGY METHOD 10/26/2024 8:50 AM EDT [facility] Blood Venous blood specimen / Unknown Venipuncture / Unknown 10/26/2024 6:43 AM EDT 10/26/2024 8:30 AM EDT us Ivelisse Mckay MD LAB BLOOD ORDERABLES Final Resul t [facility] [address] [place] [address], [place] [phone] * Lipid panel with reflex to direct LDL (08/03/2024 1:48 PM EDT) Cholesterol 117 0 - 200 mg/dL LAB CHEMISTRY METHOD 08/03/2024 7:22 PM EDT [facility] Triglycerides 71 0 - 150 mg/dL LAB CHEMISTRY METHOD 08/03/2024 7:22 PM EDT [facility] HDL 52 >=40 mg/dL LAB CHEMISTRY METHOD 08/03/2024 7:22 PM EDT [facility] LDL Calculated 51 0 - 100 mg/dL LAB CHEMISTRY METHOD 08/03/2024 7:22 PM EDT [facility] VLDL Cholesterol Emmanuel 14.2 mg/dL LAB CHEMISTRY METHOD 08/03/2024 7:22 PM EDT [facility] Non HDL Chol. (LDL+VLDL) 65 <145 mg/dL LAB CHEMISTRY METHOD 08/03/2024 7:22 PM EDT [facility] Chol/HDL Ratio 2.3 0.0 - 4.4 LAB CHEMISTRY METHOD 08/03/2024 7:22 PM EDT [facility] Blood Venous blood specimen / Unknown Venipuncture / Unknown 08/03/2024 1:48 PM EDT 08/03/2024 1:48 PM EDT us Daniel King MD LAB BLOOD ORDERABLES Final Result [facility] [address] [place] [address], [place] [phone] * MG Mammo Digital Screening w Galdino [...] Signed Date: 02/02/2024 13:03 ET Workstation ID: [id number] Transcribed By: Self Edit Transcribed Date: 02/02/2024 [...] None Computer-aided detection was employed with the [employer] AI 3-D. TISSUE DENSITY: The breasts are [...] None Computer-aided detection was employed with the [employer] AI 3-D. TISSUE DENSITY: The breasts are [...] Signed Date: 02/02/2024 13:03 ET Workstation ID: [id number] Transcribed By: Self Edit Transcribed Date: 02/02/2024 12:52 ET Rajesh Morales MD IMG BI PROCEDURES Final Result * Depression Screening (07/22/2023) Depression Screening Abstracted us Historical Provider HEALTH MAINTENANCE Final Result * [facility] DEXA AXIAL SKELETON (05/23/2020 5:08 PM EST) Anatomical Region Laterality Modality Mammography 05/23/2020 10:0 4 AM EST Narrative 05/23/2020 5:08 PM EST [facility] Diagnostic Imaging Department [address] [place] [address] Patient: MEME NARANJO Bridget /Age/Sex: 1955 - 65 - F Unit#: [id number] Location/Status: [facility] CLI Mnemonic/Ordering Site: MAMDEXAAX/SPMAM Ordering Physician: RAJESH MORALES MD [facility] Dexa Axial Skeleton - 05/23/200 History: Low estrogen state due to menopause. Comparison: 07/12/15 Findings: Bone densitometry is performed utilizing dual energy x-ray absorptiometry (DXA) in the [employer] unit. The lumbar spine and proximal femora [...] 4.9 percent Hip 0.9 percent. IMPRESSION: Osteopenia. [id number] Dictating Physician: GABRIELLE JAMISON MD Electronically Signed by: GABRIELLE JAMISON MD Dic Date/Time: 05/23/201706 Sign date/Time: 05/23/201707 Procedure Note Gabrielle Jamison MD - 03/18/2022 [facility] Diagnostic Imaging Department [address] [place] [address] Patient: MEME NARANJO Bridget /Age/Sex: 1955 - 65 - F Unit#: [id number] [facility] Ordering Physician: RAJESH MORALES MD [facility] Dexa Axial Skeleton - 05/23/20 - 1140 History: Low estrogen state due to menopause. Comparison: 07/12/15 Findings: Bone densitometry is performed utilizing dual energy x-ray absorptiometry(DXA) in the [facility] unit. The lumbar spine and proximal femora [...] Osteoporotic 4.9percent Hip 0.9 percent. IMPRESSION: Osteopenia. [id number] Dictating Physician: GABRIELLE JAMISON MD Electronically Signed by: GABRIELLE JAMISON MD Dic Date/Time: 05/23/201706 Sign date/Time: 05/23/201707 [facility] Jorge Morales MD IMG BI PROCEDURES Final Result from Last 3 Months or Most Recently Relevant to Health Maintenance Insurance [employer] MEDICARE Member Subscriber Plan / Payer (Ef fective 2022-Present) Name:Meme Naranjo Relation to Subscriber:Self Name:Meme Naranjo Payer ID:[id number] Group ID:[id number] Type:Not on file Address: [address] [place] [address] MEDICA[place] - [place] Advance Directives Documents on File Type Date Recorded 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
--- OUTSIDE RECORDS SUMMARY | 2025-01-26 11:53 | XMS_ITS | Encounter Summary ---
Author Organization [facility] Address [address] [place] [address] Care Team Providers Care [employer] Name Role Phone Maria Esther Morales MD Primary Care Provider Encounter Details Date Type Department Care Team (Late st Contact Info) Description 10/18/2024 Lab Requisition [facility] [address] [facility] [place] [phone] Ivelisse Mckay MD [address] [place] [address] Essential (primary) hypertension; Anemia, unspecified; Chronic kidney disease, stage 3 unspecified (CMS/HCC V24, CMS/HCC V28); Vitamin D deficiency, unspecified; Other specified disorders of bone density and structure, unspecified site; Spastic hemiplegia affecting left dominant side (CMS/HCC V24, CMS/HCC V28) Social History Tobacco Use Types Packs/Day [...] AM EST [facility]oint[facility] [address] [phone] 02/20/2025 2:30 PM EST Office Visit Orthopedic Surgery - [place] [address] [facility] [address] [place] [phone] Ranjeet Vasquez DPM [address] [place] [phone] 06/02/2025 11:15 AM EST Office Visit Internal Medicine [facility] [address] [facility] [address] [place] [phone] Maria Esther Morales MD [address] [place] [address] documented as of this encounter Procedures Procedure Name Priority Date/Time Associated Diagnosis Comments COMPLETE BLOOD COUNT Routine 10/18/2024 6:20 AM EDT Essential (primary) hypertension Anemia, unspecified Chronic kidney disease, stage 3 unspecified ([facility] V24, [facility] V28) Vitamin D deficiency, unspecified Other specified disorders of bone density and structure, unspecified site Spastic hemiplegia affecting left dominant side ([facility] V24, [facility] V28) COMPREHENSIVE METABOLIC PANEL Routine 10/18/2024 6:20 AM EDT Essential (primary) hypertension Anemia, unspecified Chronic kidney disease, stage 3 unspecified ([facility] V24, [facility] V28) Vitamin D deficiency, unspecified Other specified disorders of bone density and structure, unspecified site Spastic hemiplegia affecting left dominant side ([facility] V24, [facility] V28) documented in this encounter [...] MD LAB BLOOD ORDERABLES Final Resul t [facility] [address] [place] [address], * (ABNORMAL) Complete blood count (10/18/2024 6:20 AM EDT) [facility] WBC 5.5 4.8 - 10.8 K/mcL LAB HEMETOLOGY METHOD 10/18/2024 11:59 AM EDT [facility] RBC 3.20(L) 3.80 - 4.80 M/mcL LAB HEMETOLOGY METHOD 10/18/2024 11:59 AM EDT [facility] Hemoglobin 10.3(L) 11.5 - 16.0 g/dL LAB HEMETOLOGY METHOD 10/18/2024 11:59 AM EDT [facility] Hematocrit 31.0(L) 35.0 - 47.0 % LAB HEMETOLOGY METHOD 10/18/2024 11:59 AM EDT [facility] MCV 96.9 79.0 - 98.0 FL LAB HEMETOLOGY METHOD 10/18/2024 11:59 AM EDT [facility] MCH 32.2(H) 27.0 - 32.0 pcg LAB HEMETOLOGY METHOD 10/18/2024 11:59 AM EDT [facility] MCHC 33.2 32.0 - 37.0 g/dL LAB HEMETOLOGY METHOD 10/18/2024 11:59 AM EDT [facility] RDW 12.5 11.0 - 15.0 % LAB HEMETOLOGY METHOD 10/18/2024 11:59 AM EDT [facility] Platelets 146 130 - 400 K/mcL LAB HEMETOLOGY METHOD 10/18/2024 11:59 AM EDT [facility] MPV 10.7 7.0 - 11.0 FL LAB HEMETOLOGY METHOD 10/18/2024 11:59 AM EDT [facility] NRBC 0.0 <1.0 % LAB HEMETOLOGY METHOD 10/18/2024 11:59 AM EDT [facility] NRBC Absolute 0.00 <0.10 K/mcL LAB HEMETOLOGY METHOD 10/18/2024 11:59 AM EDT [facility] Blood Venous blood specimen / Unknown Venipuncture / Unknown 10/18/2024 6:20 AM EDT 10/18/2024 11:15 AM EDT us Ivelisse Mckay MD LAB BLOOD ORDERABLES Final Resul t [facility] [address] [place] [address], documented in this encounter Visit Diagnoses Diagnosis Essential (primary) hypertension Unspecified essential hypertension Anemia, unspecified Chronic kidney disease, stage 3 unspecified (CMS/HCC V24, [facility] V28) Vitamin D deficiency, unspecified Other specified disorders of bone density and structure, unspecified site Spastic hemiplegia affecting left dominant side (CMS/HCC V24, CMS/[facility] V28) documented in this encounter Care Teams [employer] Relationship Specialty Start Date End Date Maria Esther Morales MD [address] [phone] PCP - General Internal Medicine 01/29/24 documented as of this encounter
== END 2025-01-26 10:32 | disposition home or self-care (01) ==
LOC: HO.HOS 10:00
PROVIDERS: PCP Internal Medicine; Visit Provider Physical Medicine & Rehabilitation
DX: G81.14 Spastic hemiplegia affecting left nondominant side (principal); G81.11 Spastic hemiplegia affecting right dominant side; S43.002A Unspecified subluxation of left shoulder joint, initial encounter; I69.359 Hemiplegia and hemiparesis following cerebral infarction affecting unspecified side
CPT/HCPCS: 99214

== ENCOUNTER → 2025-01-26 10:26 | Outpatient (BNV) | payer OTHER, SELFPAY | PROVIDERS: PCP Internal Medicine; Visit Provider Radiology Diagnostic Radiology | DX: M25.512 Pain in left shoulder (principal) | CPT/HCPCS: 73030 ==

== ENCOUNTER → 2025-03-01 12:25 | Outpatient (BNV) | payer OTHER, SELFPAY | PROVIDERS: PCP Internal Medicine; Visit Provider Physical Medicine & Rehabilitation | DX: G81.11 Spastic hemiplegia affecting right dominant side (principal) | CPT/HCPCS: 64642; 95874 ==

== ENCOUNTER 2025-03-01 13:54 | Outpatient (REF) | payer OTHER, SELFPAY ==
--- NOTE | 2025-03-01 12:25 | EMG_ITS ---
PROCEDURE PERFORMED: Botulinum toxin chemodenervation DIAGNOSIS: Left spastic hemiparesis G81.11 History of hemorrhagic stroke with residual hemiparesis I69.359 Last injection: 08/04/2024 PREVIOUS TREATMENT AND RESPONSE: Oral antispasticity medications and physical therapy without response TOXIN USED: Botox PROCEDURE: The procedure was explained to the patient/caregiver, and informed consent was obtained. The patient sat on bed. Left arm was cleansed with betadine in the usual sterile manner. A 26 gauge needle electrode was used. Muscle Units per site Number of sites Units per muscle Left biceps 50 2 100 Left brachialis 50 2 100 Left brachioradialis 50 1 50 Left PT 50 1 50 EMG-guidance was used during the injection. A total of 300 units injected. 0 units wastage. Vial size: 100 units per vial 2 vials Dilution: 100 units per 1 ml of preservative free saline The patient tolerated the procedure well without complications. The patient was observed for 30 minutes, before being discharged with post procedure instructions. CODING: CPT code: 54790 1 ext, 1-4 muscles Wastage: None Guidance code: 92979 EMG guidance for chemodenervation J code: Botox J0585 [facility] code: 1956-1756-32 Lot #: [id number] Expiration date: [facility]
--- OUTSIDE RECORDS SUMMARY | 2025-03-01 16:40 | XMS_ITS | Encounter Summary ---
Author Organization [facility] [address] Address [address] [place] [address] Care Team Providers Care Gear Changer Name Role Phone Maria Esther Morales MD Primary Care Provider [phone] Encounter Details Date Type Department Care Team (Late st Contact Info) Description 10/28/[address] [facility] - Main Lab [address] [facility] [place] [phone] Ivelisse Mckay MD [address] [place] [address] Hypercalcemia; Hyperlipidemia, unspecified; Hypomagnesemia Social History Tobacco [...] Care Team (Late st Contact Info) Description 06/02/2025 11:15 AM EST Office Visit Internal Medicine [address] [place] [address] Maria Esther Morales MD [address] [place] [phone] documented as of this encounter Procedures Procedure Name Priority Date/Time Associated Diagnosis Comments BASIC METABOLIC PANEL Routine 10/28/2024 8:42 AM EDT Hypercalcemia Hyperlipidemia, unspecified Hypomagnesemia documented in this encounter Results * (ABNORMAL) Basic metabolic panel (10/28/2024 8:42 AM EDT) Sodium 141 133 - 145 mmol/L LAB CHEMISTRY METHOD 10/28/2024 12:47 PM EDT [facility] Potassium 3.7 3.5 - 5.5 mmol/L LAB CHEMISTRY METHOD 10/28/2024 12:47 PM EDT [facility] Chloride 110 96 - 110 mmol/L LAB CHEMISTRY METHOD 10/28/2024 12:47 PM [facility] CO2 25 21 - 32 mmol/L LAB CHEMISTRY METHOD 10/28/2024 12:47 PM [facility] Anion Gap 6 3 - 11 LAB CHEMISTRY METHOD 10/28/2024 12:47 PM [facility] Glucose 75 70 - 100 mg/dL LAB CHEMISTRY METHOD 10/28/2024 12:47 PM [facility] BUN 42(H) 5 - 25 mg/dL LAB CHEMISTRY METHOD 10/28/2024 12:47 PM [facility] Creatinine 1.46(H) 0.50 - 1.10 mg/dL LAB CHEMISTRY METHOD 10/28/2024 12:47 PM [facility] eGFR 39(L) >=60 mL/min/1. 73m2 LAB CHEMISTRY METHOD 10/28/2024 12:47 PM [facility] Comment:Calculation based on the Chronic Kidney Disease Epidemiology Collaboration (CKD-EPI) equation refit without adjustment for race. BUN/Creatinine Ratio 28.8 LAB CHEMISTRY METHOD 10/28/2024 12:47 PM [facility] Calcium 10.2 8.5 - 10.5 mg/dL LAB CHEMISTRY METHOD 10/28/2024 12:47 PM [facility] Blood Venous blood specimen / Unknown Venipuncture / Unknown 10/28/2024 8:42 AM EDT 10/28/2024 11:14 AM EDT us Ivelisse Mckay MD LAB BLOOD ORDERABLES Final Resul t [facility] [address] [place] [address], documented in this encounter Visit Diagnoses Diagnosis Hypercalcemia Hyperlipidemia, unspecified Hypomagnesemia Disorders of magnesium metabolism documented in this encounter Care Teams Gear Changer Relationship Specialty Start Date End Date Maria Esther Morales MD [address] [place] [phone] PCP - General Internal Medicine 01/29/24 documented as of this encounter
--- OUTSIDE RECORDS SUMMARY | 2025-03-01 16:40 | XMS_ITS | Data Portability ---
Author Organization [employer] [facility] Address [address] [place] [address] Care Team Providers Care Supervisor Display Fabrication Name Role Phone [facility] Referring Provider [phone] Assessment No assessment recorded. Plan of Treatment Reminders Order Date Submit Date Provider Last Modified By Organization Details Last Modified Time Details Appointments None recorded. Lab None recorded. Referral None recorded. Procedures None recorded. Surgeries None recorded. Imaging None recorded. Medication Orders codeine 10 mg-guaife nesin 100 mg/5 mL oral liquid 023 023 [email or web address] [id number], [address] [place], [address], 3 14:25:39 Patient TargetsNo targets recorded. Patient [...] rate Body height Body temperature Oxygen saturation Systolic And Diastolic Provider Name and Address Organization Details Last Updated DateTime 3 49103.8 56 g 18 /min 86 /min 157.48 cm 99.8 [degF] 98 % 127/83 mm[Hg] Not Available [facility] - production 3 [...] ICD10 Code Diagnosis IMO Codes Diagnosis Note [id number] Shea Mars MD Main - [facility] [address] [place] [phone] 03/09/2023 14:20:14 10/13/2024 23:09:31 Viral upper respiratory tract infection [id number] J06.9 runny eyes, nose, cough worse at [...] Altman Member ID Guarantor Name 10/14/2024 1 [facility] - DOS ON OR AFTER 2022 - DUAL ELIGIBLE - CORRECTION OPTIONS AND ONE CARE (MEDICARE REPLACEMENT/ADV ANTAGE - HMO) Meme Naranjo [id number] Meme Naranjo Notes Date Note Type Note Provider Name and Address Organization Details Recorded Time 03/09/2023 text/html [facility] Nursing Assessment: Chief Complaints: URI Allergies: Unknown Comments: Member reports having a cough/cold/mika estion - Denies GRAYSON and body aches - Denies fever x1 week - Yonathan Mars MD [address] [facility], [place], [address], DAVID - [employer] 03/09/2023 14:26:31 OBGyn Episode No OBEpisode recorded.
--- OUTSIDE RECORDS SUMMARY | 2025-03-01 16:40 | XMS_ITS | Encounter Summary ---
Author Organization [facility] Address [address] [place] [address] Care Team Providers Care Hook Up Name Role Phone Maria Esther Morales MD Primary Care Provider Encounter Details Date Type Department Care Team (Late st Contact Info) Description 02/03/2025 Results Follow-Up Internal Medicine - [place] [address] [place] [phone] Maria Esther Morales MD [address] [place] [phone] Social History Tobacco Use Types Packs/Day Years [...] No 10/17/2024 2:20 AM EDT Michael Casey, DANIELLE * Are you blind or do you [...] AM EST Office Visit Internal Medicine - [place] [address] [facility] [address] [place] [phone] Maria Esther Morales MD [address] [place] [phone] documented as of this encounter Visit Diagnoses Not on filedocumented in this encounter Additional Health Concerns Assessment Noted Time PHQ-9 Depression Total Score: 0 12/29/19 11:32 AM EDT documented as of this encounter Care Teams Hook Up Relationship Specialty Start Date End Date Maria Esther Morales MD [address] [facility] [address] [place] [phone] PCP - General Internal Medicine 01/29/24 documented as of this encounter
--- OUTSIDE RECORDS SUMMARY | 2025-03-01 16:40 | XMS_ITS | Encounter Summary ---
Author Organization [facility] Address [address] [place] [address] Care Team Providers Care Rn Lvn Name Role Phone Maria Esther Morales MD Primary Care Provider [phone] Encounter Details Date Type Department Care Team (Late st Contact Info) Description 10/26/2024 Lab Requisition [facility] - Main Lab [address] [facility] [place] [phone] Ivelisse Mckay MD [address] [place] [address] Chronic kidney disease, unspecified Social History Tobacco [...] AM EST Office Visit Internal Medicine - [address] [place] [address] Maria Esther Morales MD [address] [place] [phone] documented as of this encounter Procedures Procedure Name Priority Date/Time Associated Diagnosis Comments COMPLETE BLOOD COUNT Routine 10/26/2024 6:43 AM EDT Chronic kidney disease, unspecified BASIC METABOLIC PANEL Routine 10/26/2024 6:43 AM EDT Chronic kidney disease, unspecified documented in this encounter Results * (ABNORMAL) Basic metabolic panel (10/26/2024 6:43 AM EDT) [facility] Sodium 140 133 - 145 mmol/L LAB CHEMISTRY METHOD 10/26/2024 9:54 AM EDT [facility] Potassium 3.1(L) 3.5 - 5.5 mmol/L LAB CHEMISTRY METHOD 10/26/2024 9:54 AM [facility] Chloride 109 96 - 110 mmol/L LAB CHEMISTRY METHOD 10/26/2024 9:54 AM [facility] CO2 25 21 - 32 mmol/L LAB CHEMISTRY METHOD 10/26/2024 9:54 AM [facility] Anion Gap 6 3 - 11 LAB CHEMISTRY METHOD 10/26/2024 9:54 AM [facility] Glucose 76 70 - 100 mg/dL LAB CHEMISTRY METHOD 10/26/2024 9:54 AM [facility] BUN 43(H) 5 - 25 mg/dL LAB CHEMISTRY METHOD 10/26/2024 9:54 AM [facility] Creatinine 1.53(H) 0.50 - 1.10 mg/dL LAB CHEMISTRY METHOD 10/26/2024 9:54 AM [facility] eGFR 37(L) >=60 mL/min/1. 73m2 LAB CHEMISTRY METHOD 10/26/2024 9:54 AM [facility] Comment:Calculation based on the Chronic Kidney Disease Epidemiology Collaboration (CKD-EPI) equation refit without adjustment for race. BUN/Creatinine Ratio 28.1 LAB CHEMISTRY METHOD 10/26/2024 9:54 AM [facility] Calcium 9.7 8.5 - 10.5 mg/dL LAB CHEMISTRY METHOD 10/26/2024 9:54 AM [facility] Blood Venous blood specimen / Unknown Venipuncture / Unknown 10/26/2024 6:43 AM EDT 10/26/2024 8:30 AM EDT us Ivelisse Mckay MD LAB BLOOD ORDERABLES Final Resul t [facility] [address] [place] [address], * (ABNORMAL) Complete blood count (10/26/2024 6:43 AM EDT) [facility] WBC 5.0 4.8 - 10.8 K/mcL LAB HEMETOLOGY METHOD 10/26/2024 8:50 AM [facility] RBC 3.00(L) 3.80 - 4.80 M/mcL LAB HEMETOLOGY METHOD 10/26/2024 8:50 AM EDT [facility] Hemoglobin 9.5(L) 11.5 - 16.0 g/dL LAB HEMETOLOGY METHOD 10/26/2024 8:50 AM [facility] Hematocrit 28.0(L) 35.0 - 47.0 % LAB HEMETOLOGY METHOD 10/26/2024 8:50 AM [facility] MCV 93.3 79.0 - 98.0 FL LAB HEMETOLOGY METHOD 10/26/2024 8:50 AM [facility] MCH 31.7 27.0 - 32.0 pcg LAB HEMETOLOGY METHOD 10/26/2024 8:50 AM [facility] MCHC 33.9 32.0 - 37.0 g/dL LAB HEMETOLOGY METHOD 10/26/2024 8:50 AM [facility] RDW 12.3 11.0 - 15.0 % LAB HEMETOLOGY METHOD 10/26/2024 8:50 AM [facility] Platelets 155 130 - 400 K/mcL LAB HEMETOLOGY METHOD 10/26/2024 8:50 AM [facility] MPV 10.2 7.0 - 11.0 FL LAB HEMETOLOGY METHOD 10/26/2024 8:50 AM [facility] NRBC 0.0 <1.0 % LAB HEMETOLOGY METHOD 10/26/2024 8:50 AM EDT [facility] NRBC Absolute 0.00 <0.10 K/mcL LAB HEMETOLOGY METHOD 10/26/2024 8:50 AM EDT [facility] Blood Venous blood specimen / Unknown Venipuncture / Unknown 10/26/2024 6:43 AM EDT 10/26/2024 8:30 AM EDT us Ivelisse Mckay MD LAB BLOOD ORDERABLES Final Resul t [facility] [address] [place] [address], documented in this encounter Visit Diagnoses Diagnosis Chronic kidney disease, unspecified documented in this encounter Care Teams Rn Lvn Relationship Specialty Start Date End Date Maria Esther Morales MD [address] [facility] [address] [place] [phone] PCP - General Internal Medicine 01/29/24 documented as of this encounter
--- OUTSIDE RECORDS SUMMARY | 2025-03-01 16:40 | XMS_ITS | Encounter Summary ---
Author Organization [facility] Address [address] [place] [address] Care Team Providers Care Materials Specialist Name Role Phone Maria Esther Morales MD Primary Care Provider [phone] Encounter Details Date Type Department Care Team (Late st Contact Info) Description 10/18/2024 Lab Requisition [facility] - Main Lab [address] [facility] [place] [phone] Ivelisse Mckay MD [address] [place] [address] Essential (primary) hypertension; Anemia, unspecified; Chronic kidney [...] AM EST Office Visit Internal Medicine - [address] [place] [phone] Maria Esther Morales MD [address] [place] [phone] documented as of this encounter Procedures Procedure Name Priority Date/Time Associated Diagnosis Comments COMPLETE BLOOD COUNT Routine 10/18/2024 6:20 AM EDT Essential (primary) hypertension Anemia, unspecified Chronic kidney disease, stage 3 unspecified (CMS/HCC V24, CMS/[facility] V28) Vitamin D deficiency, unspecified Other specified disorders of bone density and structure, unspecified site Spastic hemiplegia affecting left dominant side (CMS/HCC V24, CMS/[facility] V28) COMPREHENSIVE METABOLIC PANEL Routine 10/18/2024 6:20 AM EDT Essential (primary) hypertension Anemia, unspecified Chronic kidney disease, stage 3 unspecified ([facility] V24, [facility] V28) Vitamin D deficiency, unspecified Other specified disorders of bone density and structure, unspecified site Spastic hemiplegia affecting left dominant side ([facility] V24, [facility] V28) documented in this encounter Results * (ABNORMAL) Comprehensive metabolic panel (10/18/2024 6:20 AM EDT) [facility] Sodium 141 133 - 145 mmol/L LAB CHEMISTRY METHOD 10/18/2024 4:06 PM [facility] Potassium 3.5 3.5 - 5.5 mmol/L LAB CHEMISTRY METHOD 10/18/2024 4:06 PM [facility] Chloride 109 96 - 110 mmol/L LAB CHEMISTRY METHOD 10/18/2024 4:06 PM [facility] CO2 25 21 - 32 mmol/L LAB CHEMISTRY METHOD 10/18/2024 4:06 PM [facility] Anion Gap 7 3 - 11 LAB CHEMISTRY METHOD 10/18/2024 4:06 PM [facility] Glucose 75 70 - 100 mg/dL LAB CHEMISTRY METHOD 10/18/2024 4:06 PM [facility] BUN 54(H) 5 - 25 mg/dL LAB CHEMISTRY METHOD 10/18/2024 4:06 PM [facility] Creatinine 2.28(H) 0.50 - 1.10 mg/dL LAB CHEMISTRY METHOD 10/18/2024 4:06 PM [facility] eGFR 23(L) >=60 mL/min/1. 73m2 LAB CHEMISTRY METHOD 10/18/2024 4:06 PM [facility] Comment:Calculation based on the Chronic Kidney Disease Epidemiology Collaboration (CKD-EPI) equation refit without adjustment for race. BUN/Creatinine Ratio 23.7 LAB CHEMISTRY METHOD 10/18/2024 4:06 PM [facility] Calcium 9.1 8.5 - 10.5 mg/dL LAB CHEMISTRY METHOD 10/18/2024 4:06 PM [facility] AST (SGOT) 14 10 - 42 unit/L LAB CHEMISTRY METHOD 10/18/2024 4:06 PM [facility] ALT (SGPT) 14 10 - 60 unit/L LAB CHEMISTRY METHOD 10/18/2024 4:06 PM [facility] Alkaline Phosphatase 90 42 - 121 unit/L LAB CHEMISTRY METHOD 10/18/2024 4:06 PM [facility] Total Protein 6.5 6.0 - 8.0 g/dL LAB CHEMISTRY METHOD 10/18/2024 4:06 PM [facility] Albumin 3.6 3.2 - 5.0 g/dL LAB CHEMISTRY METHOD 10/18/2024 4:06 PM [facility] Total Bilirubin 0.5 0.0 - 1.4 mg/dL LAB CHEMISTRY METHOD 10/18/2024 4:06 PM [facility] Blood Venous blood specimen / Unknown Venipuncture / Unknown 10/18/2024 6:20 AM EDT 10/18/2024 11:15 AM EDT us Ivelisse Mckay MD LAB BLOOD ORDERABLES Final Resul t [facility] [address] [place] [address], * (ABNORMAL) Complete blood count (10/18/2024 6:20 AM EDT) WBC 5.5 4.8 - 10.8 K/mcL LAB HEMETOLOGY METHOD 10/18/2024 11:59 AM EDT [facility] RBC 3.20(L) 3.80 - 4.80 M/mcL LAB HEMETOLOGY METHOD 10/18/2024 11:59 AM [facility] Hemoglobin 10.3(L) 11.5 - 16.0 g/dL LAB HEMETOLOGY METHOD 10/18/2024 11:59 AM [facility] Hematocrit 31.0(L) 35.0 - 47.0 % LAB HEMETOLOGY METHOD 10/18/2024 11:59 AM [facility] MCV 96.9 79.0 - 98.0 FL LAB HEMETOLOGY METHOD 10/18/2024 11:59 AM [facility] MCH 32.2(H) 27.0 - 32.0 pcg LAB HEMETOLOGY METHOD 10/18/2024 11:59 AM [facility] MCHC 33.2 32.0 - 37.0 g/dL LAB HEMETOLOGY METHOD 10/18/2024 11:59 AM [facility] RDW 12.5 11.0 - 15.0 % LAB HEMETOLOGY METHOD 10/18/2024 11:59 AM [facility] Platelets 146 130 - 400 K/mcL LAB HEMETOLOGY METHOD 10/18/2024 11:59 AM [facility] MPV 10.7 7.0 - 11.0 FL LAB HEMETOLOGY METHOD 10/18/2024 11:59 AM [facility] NRBC 0.0 <1.0 % LAB HEMETOLOGY METHOD 10/18/2024 11:59 AM [facility] NRBC Absolute 0.00 <0.10 K/mcL LAB HEMETOLOGY METHOD 10/18/2024 11:59 AM [facility] Blood Venous blood specimen / Unknown Venipuncture / Unknown 10/18/2024 6:20 AM EDT 10/18/2024 11:15 AM EDT us Ivelisse Mckay MD LAB BLOOD ORDERABLES Final [facility]ul t [facility] [address] [place] [address], documented in this encounter Visit Diagnoses Diagnosis Essential (primary) hypertension Unspecified essential hypertension Anemia, unspecified Chronic kidney disease, stage 3 unspecified ([facility] V24, [facility] V28) Vitamin D deficiency, unspecified Other specified disorders of bone density and structure, unspecified site Spastic hemiplegia affecting left dominant side ([facility] V24, [facility] V28) documented in this encounter Care Teams Materials Specialist Relationship Specialty Start Date End Date Maria Esther Morales MD [address] [phone] PCP - General Internal Medicine 01/29/24 documented as of this encounter
--- OUTSIDE RECORDS SUMMARY | 2025-03-01 16:40 | XMS_ITS | Clinical Summary ---
Author Organization [facility] Address [address] [place] [address] Phone Care Team Providers Care Lightning Protection Installer Name Role Phone Rajesh Morales MD Primary Care Provider [phone] Medications carvediloL (COREG) 6.25 mg tablet Take 1 tablet (6.25 mg total) by mouth 1 (one) time each day in the morning. 3 Active aspirin 81 mg EC tablet TAKE 1 TABLET BY MOUTH EVERY DAY 90 tablet 1 5 Active diaper,brief,ad ult,disposable (Procare Adult Brief) miscIndications :Urinary incontinence, unspecified type 1 each 1 (one) time each day. 225 each 11 5 Active chlorthalidone (HYGROTON) 25 mg tablet TAKE 1 TABLET BY MOUTH EVERY DAY 90 tablet 1 5 Active lisinopriL (PRINIVIL,ZESTR IL) 30 mg tablet TAKE 1 TABLET BY MOUTH EVERY DAY 90 tablet 1 5 Active cholecalciferol (VITAMIN D-3) 50 mcg (2,000 unit) tablet Take 1 tablet (2,000 Units total) by mouth 1 (one) time each day. 90 tablet 3 5 Active magnesium oxide (MAG-OX) 400 mg (241.3 elemental magnesium) tablet Take 1 tablet (400 mg total) by mouth 1 (one) time each day. 90 tablet 1 5 Active atorvastatin (LIPITOR) 20 mg tablet TAKE 1 TABLET BY MOUTH EVERY DAY 90 tablet 1 5 Active hydrALAZINE (APRESOLINE) 25 mg tablet TAKE 1 TABLET BY MOUTH TWICE A DAY 180 tablet 1 5 Active hydrALAZINE (APRESOLINE) 25 mg tablet TAKE 1 TABLET BY MOUTH TWICE A DAY 180 tablet 1 5 02/11/20 25 Discontinued Active Problems Problem Noted Date Diagnosed Date Spastic hemiplegia of left d ominant side as late effect of cerebral infarction ([facility] V24, [facility] V28) 07/02/2024 Cerebrovascular accident (CVA) ([facility] V24, [facility] V28) 10/20/2021 Proteinuria 10/20/2021 Edema 10/17/2021 Hemiparesis ([facility] V24, [facility] V28) Assessment & Plan (12/28/2024 12:31 PM EDT): Hyperaldosteronism, unspecified ([facility] V24) Hypercalcemia 10/17/2021 Assessment & Plan (12/28/2024 12:31 PM EDT): Renal stone 10/17/2021 CKD (chronic kidney disease) stage 3, GFR 30-59 ml/min ([facility] V24, [facility] V28) 09/18/2017 Assessment & Plan (12/28/2024 12:31 PM EDT): Hypertension 09/18/2017 Assessment & Plan (12/28/2024 12:31 PM EDT): Hemiplegia affecting nondomi nant side ([facility] V24, [facility] V28) 02/29/2016 Anemia in chronic kidney disease 02/26/2016 Vitamin D deficiency 07/24/2015 Osteopenia 07/12/2015 Encounters Date Type Department Care Team Description 02/20/2025 2:30 PM EST Office Visit Orthopedic Surgery [facility] [address] [place] [phone] Ranjeet Vasquez DPM Open displaced fracture of fifth metatarsal bone of left foot, sequela (Primary Dx); Left foot pain 02/14/2025 Telephone Internal Medicine [facility] [address] [phone] [place] 02/14/2025 Telephone Internal Medicine [facility] 175 [facility] [address] [place] [phone] [place] 02/07/2025 Telephone Internal Medicine [facility] 175 [facility] [address] [place] [phone] [place] 02/03/2025 10:21 AM EST - 02/03/2025 11:59 PM EST [facility] [address] [phone] Screening mammogram for breast cancer Discharge Disposition: Home or Self Care 02/03/2025 Results Follow-Up Internal Medicine [facility] 175 [facility] [address] [place] [phone] Rajesh Morales MD 02/01/2025 10:40 AM EST Lab Draw Station - [address] [place] [phone] Chronic disease anemia (Primary Dx); Chronic kidney disease (CKD) stage G3b/A1, moderately decreased glomerular filtration rate (GFR) between 30-44 mL/min/1.73 square meter and albuminuria creatinine ratio les* (CMS/HCC V24, CMS/HCC V28); Hypercalcemia; Hyperaldosteronism, unspecified (CMS/HCC V24); Impending cerebrovascular accident (CMS/HCC V24, CMS/HCC V28); Edema 01/16/2025 3:15 PM EDT Office Visit Orthopedic Surgery [facility] 250 175 [facility] [address] [place] [phone] Ranjeet Vasquez DPM Closed fracture of base of fifth metatarsal bone of left foot (Primary Dx); Left foot pain 01/16/2025 Telephone Orthopedic Surgery [facility] 250 175 [facility] [address] [place] [phone] Stefany, Julie Desiree 01/11/2025 10:00 AM EDT Office Visit [facility] Hematology Oncology [address] [place] [phone] Bonnie Hanson PA Anemia, unspecified type (Primary Dx) 01/09/2025 Telephone Internal Medicine [facility] 175 [facility] [address] [place] [phone] Mallorie [place] 12/28/2024 11:15 AM EDT Office Visit Internal Medicine [facility] [address] [phone] Rajesh Morales MD Primary hypertension (Primary Dx); Screening for colorectal cancer; Anemia, unspecified type; Hypercalcemia; Hemiparesis as late effect of nontraumatic intracerebral hemorrhage, unspecified laterality (CMS/HCC V24, CMS/HCC V28); Stage 3b chronic kidney disease (CMS/HCC V24, CMS/[facility] V28); Encounter for subsequent annual wellness visit (AWV) in Medicare patient 12/28/2024 Telephone Internal Medicine [facility] [address] [phone] Rajesh Morales MD 12/14/2024 Telephone Internal Medicine [facility] [address] [phone] Mallorie [place] 12/08/2024 Telephone Internal Medicine [facility] [address] [phone] Mallorie [place] 12/01/2024 [place] Internal Medicine [facility] [address] [phone] Rajesh Morales MD from Last 3 Months Immunizations Immunization Administration [...] kidney disease) stage 3, GFR 30-59 ml/min ([facility] V24, [facility] V28) 09/18/2017 DX:CKD (chronic kidney disea se) stage 3, GFR 30-59 ml/min ([facility]) Hemiplegia affecting nondomi nant side ([facility] V24, [facility] V28) 02/29/2016 DX:Hemiplegia affecting non dominant side ([facility]) Hypertension 09/18/2017 DX:Hypertension Osteopenia 07/12/2015 DX:Osteopenia [...] AM EST Office Visit Internal Medicine - [address] [phone] Rajesh Morales MD [address] [place] [phone] Health Maintenance Due Date Last Done Comments [...] 12/28/2025 12/28/2024 Hypertension/CHF/CAD Annual BMP Blood Test 02/01/2026 02/01/2025, 02/01/2025, 02/01/2025, Additional history exists Breast Cancer Screening 02/03/2027 02/04/20 25, 02/02/2024, 01/26/2023, Additional history exists Colorectal Cancer Screening: FIT-DNA [...] Comments XR FOOT 3+ VIEWS LEFT Routine 02/20/2025 2:22 PM EST Left foot pain MG MAMMO DIGITAL SCREENING W GALDINO BILAT Routine 02/03/2025 10:46 AM EST Screening mammogram for breast cancer PROTEIN AND CREATININE WITH RATIO, URINE Routine 02/01/2025 10:52 AM EST Chronic kidney disease (CKD) stage G3b/A1, moderately decreased glomerular filtration rate (GFR) between 30-44 mL/min/1.73 square meter and albuminuria creatinine ratio les* ([facility] V24, [facility] V28) Hypercalcemia Hyperaldosteronism, unspecified ([facility] V24) Impending cerebrovascular accident ([facility] V24, [facility] V28) Edema Chronic disease anemia CBC WITH AUTO DIFFERENTIAL Routine 02/01/2025 10:42 AM EST Chronic kidney disease (CKD) stage G3b/A1, moderately decreased glomerular filtration rate (GFR) between 30-44 mL/min/1.73 square meter and albuminuria creatinine ratio les* ([facility]/HCC V24, CMS/[facility] V28) Hypercalcemia Hyperaldosteronism, unspecified ([facility] V24) Impending cerebrovascular accident (CMS/[facility] V24, CMS/[facility] V28) Edema Chronic disease anemia CBC AND DIFFERENTIAL Routine 02/01/2025 10:42 AM EST Chronic kidney disease (CKD) stage G3b/A1, moderately decreased glomerular filtration rate (GFR) between 30-44 mL/min/1.73 square meter and albuminuria creatinine ratio les* ([facility] V24, [facility] V28) Hypercalcemia Hyperaldosteronism, unspecified (CMS/HCC V24) Impending cerebrovascular accident (CMS/HCC V24, CMS/HCC V28) Edema Chronic disease anemia VITAMIN D 25 HYDROXY Routine 02/01/2025 10:42 AM EST Chronic kidney disease (CKD) stage G3b/A1, moderately decreased glomerular filtration rate (GFR) between 30-44 mL/min/1.73 square meter and albuminuria creatinine ratio les* ([facility]/HCC V24, CMS/HCC V28) Hypercalcemia Hyperaldosteronism, unspecified (CMS/HCC V24) Impending cerebrovascular accident (CMS/HCC V24, CMS/HCC V28) Edema Chronic disease anemia PARATHYROID HORMONE INTACT Routine 02/01/2025 10:42 AM EST Chronic kidney disease (CKD) stage G3b/A1, moderately decreased glomerular filtration rate (GFR) between 30-44 mL/min/1.73 square meter and albuminuria creatinine ratio les* ([facility]/HCC V24, [facility] V28) Hypercalcemia Hyperaldosteronism, unspecified ([facility]/HCC V24) Impending cerebrovascular accident (CMS/HCC V24, CMS/HCC V28) Edema Chronic disease anemia PHOSPHORUS Routine 02/01/2025 10:42 AM EST Chronic kidney disease (CKD) stage G3b/A1, moderately decreased glomerular filtration rate (GFR) between 30-44 mL/min/1.73 square meter and albuminuria creatinine ratio les* ([facility]/HCC V24, CMS/HCC V28) Hypercalcemia Hyperaldosteronism, unspecified (CMS/HCC V24) Impending cerebrovascular accident (CMS/HCC V24, CMS/HCC V28) Edema Chronic disease anemia MAGNESIUM Routine 02/01/2025 10:42 AM EST Chronic kidney disease (CKD) stage G3b/A1, moderately decreased glomerular filtration rate (GFR) between 30-44 mL/min/1.73 square meter and albuminuria creatinine ratio les* ([facility]/HCC V24, CMS/HCC V28) Hypercalcemia Hyperaldosteronism, unspecified (CMS/HCC V24) Impending cerebrovascular accident (CMS/HCC V24, CMS/HCC V28) Edema Chronic disease anemia URIC ACID Routine 02/01/2025 10:42 AM EST Chronic kidney disease (CKD) stage G3b/A1, moderately decreased glomerular filtration rate (GFR) between 30-44 mL/min/1.73 square meter and albuminuria creatinine ratio les* ([facility] V24, [facility] V28) Hypercalcemia Hyperaldosteronism, unspecified ([facility] V24) Impending cerebrovascular accident ([facility] V24, [facility] V28) Edema Chronic disease anemia COMPREHENSIVE METABOLIC PANEL Routine 02/01/2025 10:42 AM EST Chronic kidney disease (CKD) stage G3b/A1, moderately decreased glomerular filtration rate (GFR) between 30-44 mL/min/1.73 square meter and albuminuria creatinine ratio les* ([facility] V24, [facility] V28) Hypercalcemia Hyperaldosteronism, unspecified ([facility] V24) Impending cerebrovascular accident ([facility] V24[facility] V28) Edema Chronic disease anemia EXTERNAL XRAY REPORT 01/26/2025 EXTERNAL XRAY REPORT 01/26/2025 XR FOOT 3+ VIEWS LEFT Routine 01/16/2025 3:51 PM EDT Closed fracture of base of fifth metatarsal bone of left foot Left foot pain UT PROTEIN ELECTROPHORETIC FRACTIONATION & QUANTITATION SERUM Routine 01/11/2025 9:54 AM EDT Anemia, unspecified type UT IMMUNOFIXATION ELECTROPHORESIS SERUM Routine 01/11/2025 9:54 AM [...] 11:25 AM EDT Screening for colorectal cancer LIPID PANEL WITH REFLEX TO DIRECT LDL Routine 08/03/2024 1:48 PM EDT Chronic kidney disease (CKD) stage G3b/A1, moderately decreased glomerular filtration rate (GFR) between 30-44 mL/min/1.73 square meter and albuminuria creatinine ratio les* ([facility] V24, [facility] V28) Proteinuria Essential hypertension, malignant Hypercalcemia Hyperaldosteronism, unspecified ([facility] V24) Impending cerebrovascular accident ([facility] V24, [facility] V28) HM DEPRESSION SCREENING Routine 07/22/2023 [facility] DEXA AXIAL SKELETON Routine 05/23/2020 5:08 PM EST Asymptomatic menopausal state from Last 3 Months or Most Recently Relevant to Health Maintenance Results * XR Foot 3+ Views Left (02/20/2025 2:22 PM EST) Only the most recent of2 resultswithin the time period is included. Anatomical Region Laterality Modality Lower Extremities, Foot Left Computed Radiography Narrative 02/20/2025 6:33 PM EST Left foot 3 views complete consolidation noted of fifth metatarsal base fracture us Ranjeet Vasquez DPM IMG XR PROCEDURES Final R esult * MG Mammo Digital Screening w Galdino bilat (02/03/2025 10:46 AM EST) Anatomical Region Laterality Modality Breast Bilateral Mammography 02/03/2025 1:44 PM EST Impressions 02/03/2025 2:18 PM EST Benign. BI-RADS CATEGORY: 1 - NEGATIVE RECOMMENDATION: Screening bilateral mammogram is recommended in 1 year. Mammo Location: [facility], [address] [place] [address], [id number], . -------- FINAL REPORT -------- Dictated By: Raul William Dictated Date: 02/03/2025 13:44 ET Assigned Physician: Raul William Reviewed and Electronically Signed By: Raul William Signed Date: 02/03/2025 14:18 ET Workstation ID: [id number] Transcribed By: Self Edit Transcribed Date: 02/03/2025 13:44 ET Narrative 02/03/2025 2:18 PM EST CLINICAL: 69 years old, Female, routine annual exam. COMPARISON: 02/02/2024 and 01/26/2023. TECHNIQUE: Bilateral MLO and CC views were obtained digitally with 3-D mammogram (digital breast tomosynthesis). Computer-aided detection was utilized in evaluation of this exam (CAD). FINDINGS: Atherosclerotic calcifications. No suspicious mass or architectural distortion. No suspicious calcification. There has been no significant change from prior exam(s). BREAST DENSITY: C - The breasts are heterogeneously dense which may obscure small masses. Procedure Note Raul William MD - 02/03/2025 CLINICAL: 69 years old, Female, routine annual exam. COMPARISON: 02/02/2024 and 01/26/2023. TECHNIQUE: Bilateral MLO and CC views were obtained digitally with 3-Dmammogram (digital breast tomosynthesis). Computer-aided detection wasutilized in evaluation of this exam (CAD). FINDINGS: Atherosclerotic calcifications. No suspicious mass or architectural distortion. No suspiciouscalcification. There has been no significant change from prior exam(s). BREAST DENSITY: C - The breasts are heterogeneously dense which mayobscure small masses. IMPRESSION: Benign. BI-RADS CATEGORY: 1 - NEGATIVE RECOMMENDATION: Screening bilateral mammogram is recommended in 1 year. Mammo Location: [facility], [address] [place] [address], [id number], . -------- FINAL REPORT -------- Dictated By: Raul William Dictated Date: 02/03/2025 13:44 ET Assigned Physician: Raul William Reviewed and Electronically Signed By: Raul William Signed Date: 02/03/2025 14:18 ET Workstation ID: [id number] Transcribed By: Self Edit Transcribed Date: 02/03/2025 13:44 ET Rajesh Morales MD IMG BI PROCEDURES Final Result * (ABNORMAL) Protein and creatinine with ratio, urine (02/01/2025 10:52 AM EST) [facility] Protein, Urine 35 mg/dL LAB CHEMISTRY METHOD 02/01/2025 4:04 PM [facility] Prot/Creat, Ur 0.35(H) <=0.20 mg/mg creat LAB CHEMISTRY METHOD 02/01/2025 4:04 PM [facility] Creatinine, Urine 101.0 mg/dL LAB CHEMISTRY METHOD 02/01/2025 4:04 PM [facility] Urine Urine specimen obtained by clean catch procedure / Unknown Non-blood Collection / Unknown 02/01/2025 10:52 AM EST 02/01/2025 10:52 AM EST us Daniel King MD LAB URINE ORDERABLES Final Result [facility] [address] [place] [address], [place] [phone] * (ABNORMAL) CBC auto differential (02/01/2025 10:42 AM EST) Only the most recent of2 resultswithin the time period is included. [facility] WBC 4.4(L) 4.8 - 10.8 K/mcL LAB HEMETOLOGY METHOD 02/01/2025 2:28 PM [facility] RBC 3.50(L) 3.80 - 4.80 M/mcL LAB HEMETOLOGY METHOD 02/01/2025 2:28 PM [facility] Hemoglobin 10.9(L) 11.5 - 16.0 g/dL LAB HEMETOLOGY METHOD 02/01/2025 2:28 PM [facility] Hematocrit 33.6(L) 35.0 - 47.0 % LAB HEMETOLOGY METHOD 02/01/2025 2:28 PM [facility] MCV 94.9 79.0 - 98.0 FL LAB HEMETOLOGY METHOD 02/01/2025 2:28 PM [facility] MCH 30.8 27.0 - 32.0 pcg LAB HEMETOLOGY METHOD 02/01/2025 2:28 PM [facility] MCHC 32.4 32.0 - 37.0 g/dL LAB HEMETOLOGY METHOD 02/01/2025 2:28 PM [facility] RDW 12.3 11.0 - 15.0 % LAB HEMETOLOGY METHOD 02/01/2025 2:28 PM [facility] Platelets 166 130 - 400 K/mcL LAB HEMETOLOGY METHOD 02/01/2025 2:28 PM [facility] MPV 10.6 7.0 - 11.0 FL LAB HEMETOLOGY METHOD 02/01/2025 2:28 PM [facility] NRBC 0.0 <1.0 % LAB HEMETOLOGY METHOD 02/01/2025 2:28 PM [facility] NRBC Absolute 0.00 <0.10 K/mcL LAB HEMETOLOGY METHOD 02/01/2025 2:28 PM [facility] Neutrophils Relative 53.9 % LAB HEMETOLOGY METHOD 02/01/2025 2:28 PM [facility] Lymphocytes Relative 33.9 % LAB HEMETOLOGY METHOD 02/01/2025 2:28 PM [facility] Monocytes Relative 8.0 % LAB HEMETOLOGY METHOD 02/01/2025 2:28 PM [facility] Eosinophils Relative 3.0 % LAB HEMETOLOGY METHOD 02/01/2025 2:28 PM [facility] Basophils Relative 0.7 % LAB HEMETOLOGY METHOD 02/01/2025 2:28 PM [facility] Immature Granulocytes Relative 0.5 % LAB HEMETOLOGY METHOD 02/01/2025 2:28 PM EST [facility] Neutrophils Absolute 2.38 1.50 - 7.00 K/mcL LAB HEMETOLOGY METHOD 02/01/2025 2:28 PM EST [facility] Lymphocytes Absolute 1.49 1.00 - 5.00 K/mcL LAB HEMETOLOGY METHOD 02/01/2025 2:28 PM EST [facility] Monocytes Absolute 0.35 0.20 - 1.00 K/mcL LAB HEMETOLOGY METHOD 02/01/2025 2:28 PM EST [facility] Eosinophils Absolute 0.13 0.00 - 0.50 K/[facility] LAB HEMETOLOGY METHOD 02/01/2025 2:28 PM [facility] Basophils Absolute 0.03 0.00 - 0.20 K/mcL LAB HEMETOLOGY METHOD 02/01/2025 2:28 PM [facility] Immature Granulocytes Absolute 0.02 0.00 - 0.03 K/[facility] LAB HEMETOLOGY METHOD 02/01/2025 2:28 PM EST [facility] Blood Venous blood specimen / Unknown Venipuncture / Unknown 02/01/2025 10:42 AM EST 02/01/2025 10:42 AM EST us Daniel King MD LAB BLOOD ORDERABLES Final Result [facility] [address] [place] [address], * Vitamin D 25 hydroxy (02/01/2025 10:42 AM EST) [facility] Vit D, 25-Hydroxy 62.9 30.0 - 80.0 ng/mL LAB CHEMISTRY METHOD 02/01/2025 3:16 PM EST [facility] Blood Venous blood specimen / Unknown Venipuncture / Unknown 02/01/2025 10:42 AM EST 02/01/2025 10:42 AM EST us Daniel King MD LAB BLOOD ORDERABLES Final Result Performing Organization Address [facility]/ZIP Co de Phone Number [facility] [address] [place] [address], [place] [phone] * Uric acid (02/01/2025 10:42 AM EST) Uric Acid 6.4 3.1 - 7.8 mg/dL LAB CHEMISTRY METHOD 02/01/2025 2:34 PM EST [facility] Blood Venous blood specimen / Unknown Venipuncture / Unknown 02/01/2025 10:42 AM EST 02/01/2025 10:42 AM EST us Daniel King MD LAB BLOOD ORDERABLES Final Result Performing Organization Address [facility] Co de Phone Number [facility] [address] [place] [address], [place] [phone] * Phosphorus (02/01/2025 10:42 AM EST) Pathologist [facility] Phosphorus 3.4 2.5 - 4.5 mg/dL LAB CHEMISTRY METHOD 02/01/2025 2:34 PM EST [facility] Blood Venous blood specimen / Unknown Venipuncture / Unknown 02/01/2025 10:42 AM EST 02/01/2025 10:42 AM EST us Daniel King MD LAB BLOOD ORDERABLES Final Result Performing Organization Address City/[facility]/ZIP Co de Phone Number [facility] [address] [place] [address], [place] [phone] * (ABNORMAL) Parathyroid hormone intact (02/01/2025 10:42 AM EST) PTH 135.0(H) 18.5 - 88.0 pcg/mL LAB CHEMISTRY METHOD 02/01/2025 3:16 PM EST [facility] Blood Venous blood specimen / Unknown Venipuncture / Unknown 02/01/2025 10:42 AM EST 02/01/2025 10:42 AM EST us Daniel King MD LAB BLOOD ORDERABLES Final Result [facility] [address] [place] [address], [place] [phone] * Magnesium (02/01/2025 10:42 AM EST) Pathologist [facility] Magnesium 2.3 1.9 - 2.6 mg/dL LAB CHEMISTRY METHOD 02/01/2025 2:34 PM [facility] Blood Venous blood specimen / Unknown Venipuncture / Unknown 02/01/2025 10:42 AM EST 02/01/2025 10:42 AM EST Daniel King MD LAB BLOOD ORDERABLES Final Result Performing Organization Address City/[facility]/ZIP Co de Phone Number [facility] [address] [place] [address], [place] [phone] * (ABNORMAL) Comprehensive metabolic panel (02/01/2025 10:42 AM EST) Only the most recent of2 resultswithin the time period is included. [facility] Sodium 139 133 - 145 mmol/L LAB CHEMISTRY METHOD 02/01/2025 2:34 PM [facility] Potassium 3.8 3.5 - 5.5 mmol/L LAB CHEMISTRY METHOD 02/01/2025 2:34 PM [facility] Chloride 108 96 - 110 mmol/L LAB CHEMISTRY METHOD 02/01/2025 2:34 PM [facility] CO2 27 21 - 32 mmol/L LAB CHEMISTRY METHOD 02/01/2025 2:34 PM [facility] Anion Gap 4 3 - 11 LAB CHEMISTRY METHOD 02/01/2025 2:34 PM [facility] LAB Glucose 86 70 - 100 mg/dL LAB CHEMISTRY METHOD 02/01/2025 2:34 PM [facility] BUN 56(H) 5 - 25 mg/dL LAB CHEMISTRY METHOD 02/01/2025 2:34 PM [facility] Creatinine 1.87(H) 0.50 - 1.10 mg/dL LAB CHEMISTRY METHOD 02/01/2025 2:34 PM [facility] eGFR 29(L) >=60 mL/min/1. 73m2 LAB CHEMISTRY METHOD 02/01/2025 2:34 PM [facility] Comment:Calculation based on the Chronic Kidney Disease Epidemiology Collaboration (CKD-EPI) equation refit without adjustment for race. BUN/Creatinine Ratio 29.9 LAB CHEMISTRY METHOD 02/01/2025 2:34 PM [facility] Calcium 9.8 8.5 - 10.5 mg/dL LAB CHEMISTRY METHOD 02/01/2025 2:34 PM [facility] AST (SGOT) 16 10 - 42 unit/L LAB CHEMISTRY METHOD 02/01/2025 2:34 PM [facility] ALT (SGPT) 17 10 - 60 unit/L LAB CHEMISTRY METHOD 02/01/2025 2:34 PM [facility] Alkaline Phosphatase 91 42 - 121 unit/L LAB CHEMISTRY METHOD 02/01/2025 2:34 PM [facility] Total Protein 7.1 6.0 - 8.0 g/dL LAB CHEMISTRY METHOD 02/01/2025 2:34 PM [facility] Albumin 3.8 3.2 - 5.0 g/dL LAB CHEMISTRY METHOD 02/01/2025 2:34 PM [facility] Total Bilirubin 0.6 0.0 - 1.4 mg/dL LAB CHEMISTRY METHOD 02/01/2025 2:34 PM [facility] Blood Venous blood specimen / Unknown Venipuncture / Unknown 02/01/2025 10:42 AM EST 02/01/2025 10:42 AM EST Daniel King MD LAB BLOOD ORDERABLES Final Result Performing Organization Address [facility] Co de Phone Number [facility] [address] [place] [address], [place] [phone] * External Xray Report (01/26/2025) Only the most recent of2 resultswithin the time period is included. Anatomical Region Laterality Modality Radiographic Zohreh ging us Provider [facility] IMG XR PROCEDURES Final Result * Pathologist Review Immunofixation (01/11/2025 9:54 AM EDT) Pathologist Interpretation 01/12/2025 7:14 PM EDT [facility] Blood Venous blood specimen / Unknown Venipuncture / Unknown 01/11/2025 9:54 AM EDT 01/11/2025 11:31 AM EDT us Bonnie AMADOR LAB BLOOD ORDERABLES Final Re sult Performing Organization Address City/[facility]/ZIP Co de Phone Number [facility] [address] [place] [address], [place] [phone] * PATHOLOGIST REVIEW PROTEIN ELECTROPHORESIS (01/11/2025 9:54 AM EDT) Pathologist Interpretation Reviewed by Estee Alexander MD 01/17/2025 12:59 PM EDT [facility] Blood Venous blood specimen / Unknown Venipuncture / Unknown 01/11/2025 9:54 AM EDT 01/11/2025 11:31 AM EDT us Bonnie AMADOR LAB BLOOD ORDERABLES Final Re sult Performing Organization Address [facility]/ZIP Co de Phone Number [facility] [address] [place] [address], [place] [phone] * Thyroid stimulating hormone with reflex to free t4 and free t3 (01/11/2025 9:54 AM EDT) Pathologist [facility] TSH 2.58 0.40 - 4.00 mcIU/mL LAB CHEMISTRY METHOD 01/11/2025 12:59 PM EDT [facility] Blood Venous blood specimen / Unknown Venipuncture / Unknown 01/11/2025 9:54 AM EDT 01/11/2025 11:31 AM EDT us Bonnie AMADOR LAB BLOOD ORDERABLES Final Re sult Performing Organization Address [facility] Co de Phone Number [facility] [address] [place] [address], [place] [phone] * Vitamin B12 and folate (01/11/2025 9:54 AM EDT) Pathologist [facility] Vitamin B-12 575 250 - 900 pcg/mL LAB CHEMISTRY METHOD 01/11/2025 12:15 PM EDT [facility] Folate 6.5 2.8 - 17.0 ng/ml LAB CHEMISTRY METHOD 01/11/2025 12:15 PM EDT [facility] Blood Venous blood specimen / Unknown Venipuncture / Unknown 01/11/2025 9:54 AM EDT 01/11/2025 11:31 AM EDT us Bonnie AMADOR LAB BLOOD ORDERABLES Final Re sult Performing Organization Address [facility]/ZIP Co de Phone Number [facility] [address] [place] [address], [place] [phone] * (ABNORMAL) [facility]-lambda free light chains, quantitative (01/11/2025 9:54 AM EDT) [facility] Free Light Chain 7.63(H) 0.33 - 1.94 mg/dL 01/13/2025 12:58 PM EDT [facility] Lambda Free Light Chain 4.62(H) 0.57 - 2.63 mg/dL 01/13/2025 12:58 PM EDT [facility]/Lambda FLC Ratio 1.65 0.26 - 1.65 01/13/2025 12:58 PM EDT [facility] Comment: Test performed at [facility], [address] , [place] [address] Cathy Cedillo MD, PhD - Magnetic Locater Blood Venous blood specimen / Unknown Venipuncture / Unknown 01/11/2025 9:54 AM EDT 01/11/2025 11:31 AM EDT [facility] LAB BLOOD ORDERABLES Final Re sult [facility] [address] [place] [address] * Erythropoietin (01/11/2025 9:54 AM EDT) Pathologist [facility] Erythropoietin 6.3 2.6 - 18.5 mIU/mL 01/13/2025 8:44 PM EDT [facility] Comment: Test performed at [facility], [address] [place] [address] Cathy Cedillo MD, PhD - Magnetic Locater Blood Venous blood specimen / Unknown Venipuncture / Unknown 01/11/2025 9:54 AM EDT 01/11/2025 11:31 AM EDT [employer] LAB BLOOD ORDERABLES Final Re sult [facility] [address] [place] [address] * Iron and TIBC (01/11/2025 9:54 AM EDT) Iron 81 40 - 150 mcg/dL LAB CHEMISTRY METHOD 01/11/2025 12:15 PM EDT [facility] TIBC 268 250 - 450 mcg/dL LAB CHEMISTRY METHOD 01/11/2025 12:15 PM EDT [facility] Iron Saturation 30 15 - 50 % LAB CHEMISTRY METHOD 01/11/2025 12:15 PM EDT [facility] Blood Venous blood specimen / Unknown Venipuncture / Unknown 01/11/2025 9:54 AM EDT 01/11/2025 11:31 AM EDT Bonnie AMADOR LAB BLOOD ORDERABLES Final Re sult [facility] [address] [place] [address], * (ABNORMAL) Reticulocyte count (01/11/2025 9:54 AM EDT) Retic Ct Abs 0.070 0.030 - 0.090 M/mcL LAB HEMETOLOGY METHOD 01/11/2025 11:44 AM EDT [facility] Retic Ct Pct 1.9(H) 0.7 - 1.7 % LAB HEMETOLOGY METHOD 01/11/2025 11:44 AM EDT [facility] Immature Retic Fract 9.9 2.3 - 15.9 % LAB HEMETOLOGY METHOD 01/11/2025 11:44 AM EDT [facility] Reticulocyte Hemoglobin 34.9 >29.0 pcg LAB HEMETOLOGY METHOD 01/11/2025 11:44 AM EDT [facility] Blood Venous blood specimen / Unknown Venipuncture / Unknown 01/11/2025 9:54 AM EDT 01/11/2025 11:31 AM EDT us Bonnie AMADOR LAB BLOOD ORDERABLES Final Re sult [facility] [address] [place] [address], [place] [phone] * Immunofixation electrophoresis serum (01/11/2025 9:54 AM EDT) Pathologist [facility] Immunofixation Result, Serum No monoclonal immunoglobulins detected. LAB CHEMISTRY METHOD 01/12/2025 7:14 PM EDT [facility] Blood Venous blood specimen / Unknown Venipuncture / Unknown 01/11/2025 9:54 AM EDT 01/11/2025 11:31 AM EDT us Bonnie AMADOR LAB BLOOD ORDERABLES Final Re sult Performing Organization Address City/[facility]/ZIP Co de Phone Number [facility] [address] [place] [address], [place] [phone] * Immunoglobulins IgG, IgA, IgM (01/11/2025 9:54 AM EDT) [facility] Total IgG 1,440 549 - 1,584 mg/dL LAB CHEMISTRY METHOD 01/11/2025 12:15 PM EDT [facility] IgA 169 61 - 348 mg/dL LAB CHEMISTRY METHOD 01/11/2025 12:15 PM EDT [facility] IgM 42 23 - 259 mg/dL LAB CHEMISTRY METHOD 01/11/2025 12:15 PM EDT [facility] Blood Venous blood specimen / Unknown Venipuncture / Unknown 01/11/2025 9:54 AM EDT 01/11/2025 11:31 AM EDT us Bonnie AMADOR LAB BLOOD ORDERABLES Final Re sult [facility] [address] [place] [address], [place] [phone] * Protein electrophoresis, serum (01/11/2025 9:54 AM EDT) Pathologist [facility] Total Protein 7.3 6.0 - 8.0 g/dL LAB CHEMISTRY METHOD 01/17/2025 12:59 PM EDT [facility] Albumin, Serum 3.5 2.9 - 4.1 g/dL LAB CHEMISTRY METHOD 01/17/2025 12:59 PM EDT [facility] Alpha 1 Globulin (g/dL) 0.2 0.1 - 0.5 g/dL LAB CHEMISTRY METHOD 01/17/2025 12:59 PM EDT [facility] Alpha 2 Globulin (g/dL) 1.2 0.7 - 1.5 g/dL LAB CHEMISTRY METHOD 01/17/2025 12:59 PM EDT [facility] Beta (g/dL) 0.9 0.7 - 1.5 g/dL LAB CHEMISTRY METHOD 01/17/2025 12:59 PM EDT [facility] Gamma Globulin (g/dL) 1.5 0.7 - 1.9 g/dL LAB CHEMISTRY METHOD 01/17/2025 12:59 PM EDT [facility] SPEP Interpretation Essentially normal pattern. No M-Marcelino seen. LAB CHEMISTRY METHOD 01/17/2025 12:59 PM EDT [facility] Blood Venous blood specimen / Unknown Venipuncture / Unknown 01/11/2025 9:54 AM EDT 01/11/2025 11:31 AM EDT us Bonnie AMADOR LAB BLOOD ORDERABLES Final Re sult [facility] [address] [place] [address], * Protein, total (01/11/2025 9:54 AM EDT) Pathologist [facility] Total Protein 7.3 6.0 - 8.0 g/dL LAB CHEMISTRY METHOD 01/11/2025 11:58 AM EDT [facility] Blood Venous blood specimen / Unknown Venipuncture / Unknown 01/11/2025 9:54 AM EDT 01/11/2025 11:31 AM EDT us Bonnie AMADOR LAB BLOOD ORDERABLES Final Re sult Performing Organization Address [facility]/ZIP Co de Phone Number [facility] [address] [place] [address], [place] [phone] * Lactate dehydrogenase (01/11/2025 9:54 AM EDT) [facility] LDH 153 120 - 246 unit/L LAB CHEMISTRY METHOD 01/11/2025 11:53 AM EDT [facility] Blood Venous blood specimen / Unknown Venipuncture / Unknown 01/11/2025 9:54 AM EDT 01/11/2025 11:31 AM EDT us Bonnie AMADOR LAB BLOOD ORDERABLES Final Re sult Performing Organization Address [facility] de Phone Number [facility] [address] [place] [address], [place] [phone] * (ABNORMAL) Haptoglobin (01/11/2025 9:54 AM EDT) [facility] Haptoglobin 223(H) 16 - 200 mg/dL LAB CHEMISTRY METHOD 01/11/2025 12:15 PM EDT [facility] Blood Venous blood specimen / Unknown Venipuncture / Unknown 01/11/2025 9:54 AM EDT 01/11/2025 11:31 AM EDT us Bonnie AMADOR LAB BLOOD ORDERABLES Final Re sult Performing Organization Address City/[facility]/ZIP Co de Phone Number [facility] [address] [place] [address], [place] [phone] * (ABNORMAL) Ferritin (01/11/2025 9:54 AM EDT) [facility] Ferritin 348(H) 8 - 252 ng/mL LAB CHEMISTRY METHOD 01/11/2025 12:15 PM EDT [facility] Blood Venous blood specimen / Unknown Venipuncture / Unknown 01/11/2025 9:54 AM EDT 01/11/2025 11:31 AM EDT Bonnie AMADOR LAB BLOOD ORDERABLES Final Re sult [facility] [address] [place] [address], [place] [phone] * Cologuard?? colon cancer screening (01/09/2025 11:25 AM EDT) [facility] COLOGUARD Negative Negative [facility] Comment: The Cologuard (TM) test was [...] cancer. Following a negative Cologuard result, the [employer] Society and U.S. Multi-Society Task Force screening guidelines recommend a Cologuard re-screening interval of 3 years. References: [employer] Guideline for Colorectal Cancer Screening: https://www.cancer.org/cancer/qcxbh-udqvfq-wtnsym/ijjznezzx-farzcldij-avekkpn/ac s-rec ommendations.html.; Terrence CARVAJAL, Felix JOSE, Анна KAYE, Colorectal Cancer Screening: Recommendations for Physicians and Patients from the U.S. Multi-Society Task Force on Colorectal Cancer Screening , Am J Gastroenterology 2017; 112:3836-8831. TEST DESCRIPTION: Composite algorithmic analysis of stool [...] screened with both Cologuard and colonoscopy. (Dieter Styles et al, N Engl J Med 2014;370(14):6587-6643.) Cologuard may produce a false negative or false positive result (no colorectal cancer or precancerous polyp present at colonoscopy follow up). A negative Cologuard test result does not guarantee the absence of CRC or advanced adenoma (pre-cancer). The current Cologuard screening interval is every 3 years. ([employer] Society and U.S. Multi-Society Task Force). Cologuard performance data in a 10,000 patient pivotal study using colonoscopy as the reference method can be accessed at the following location: www.[employer] [place]/results. Additional description of the Cologuard test process, warnings and precautions can be found at www.cologuard.com. Stool 01/09/2025 11:2 5 AM EDT 01/10/2025 11:24 AM EDT us Rajesh Morales MD LAB MOLECULAR DIAGNOSTICS AYAH DE DIOS Final Result [facility] [address] [place] [address] [facility] [address] [place] [address] * Lipid panel with reflex to direct LDL (08/03/2024 1:48 PM EDT) Cholesterol 117 0 - 200 mg/dL LAB CHEMISTRY METHOD 08/03/2024 7:22 PM EDT [facility] Triglycerides 71 0 - 150 mg/dL LAB CHEMISTRY METHOD 08/03/2024 7:22 PM EDT [facility] HDL 52 >=40 mg/dL LAB CHEMISTRY METHOD 08/03/2024 7:22 PM EDT [facility] LDL Calculated 51 0 - 100 mg/dL LAB CHEMISTRY METHOD 08/03/2024 7:22 PM EDT [facility] VLDL Cholesterol Emmanuel 14.2 mg/dL LAB CHEMISTRY METHOD 08/03/2024 7:22 PM EDT [facility] Non HDL Chol. (LDL+VLDL) 65 <145 mg/dL LAB CHEMISTRY METHOD 08/03/2024 7:22 PM EDT [facility] Chol/HDL Ratio 2.3 0.0 - 4.4 LAB CHEMISTRY METHOD 08/03/2024 7:22 PM EDT [facility] Blood Venous blood specimen / Unknown Venipuncture / Unknown 08/03/2024 1:48 PM EDT 08/03/2024 1:48 PM EDT us Daniel King MD LAB BLOOD ORDERABLES Final Result [facility] [address] [place] [address], * Depression Screening (07/22/2023) Depression Screening Abstracted us Historical Provider HEALTH MAINTENANCE Final Result * [facility] DEXA AXIAL SKELETON (05/23/2020 5:08 PM EST) Anatomical Region Laterality Modality Mammography 05/23/2020 10:0 4 AM EST Narrative 05/23/2020 5:08 PM EST [facility] Diagnostic Imaging Department [address] [place] [address] Patient: MEME NARANJO /Age/Sex: 1955 - 65 - F Unit#: [id number] Location/Status: SPDIMAM/REG CLI Mnemonic/Ordering Site: MAMDEXAAX/SPMAM Ordering Physician: RAJESH MORALES MD [facility] Dexa Axial Skeleton - 05/23/20 - 1140 History: Low estrogen state due to menopause. Comparison: 07/12/15 Findings: Bone densitometry is performed utilizing dual energy x-ray absorptiometry (DXA) in the Xplornet unit. The lumbar spine and proximal femora [...] 4.9 percent Hip 0.9 percent. IMPRESSION: Osteopenia. [id number] Dictating Physician: GABRIELLE JAMISON MD Electronically Signed by: GABRIELLE JAMISON MD Dic Date/Time: 05/23/201706 Sign date/Time: 05/23/201707 Procedure Note Gabrielle Jamison MD - 03/18/2022 [facility] Diagnostic Imaging Department [address] [place] [address] Patient: MEME NARANJO /Age/Sex: 1955 - 65 - F Unit#: [id number] Location/Status: [facility]/REG CLI Mnemonic/[facility] Ordering Physician: RAJESH MORALES MD [facility] Dexa Axial Skeleton - 05/23/20 - 1140 History: Low estrogen state due to menopause. Comparison: 07/12/15 Findings: Bone densitometry is performed utilizing dual energy x-ray absorptiometry(DXA) in the [employer]utorigWITOI unit. The lumbar spine and proximal femora [...] Osteoporotic 4.9percent Hip 0.9 percent. IMPRESSION: Osteopenia. [id number] Dictating Physician: GABRIELLE JAMISON MD Electronically Signed by: GABRIELLE JAMISON MD Dic Date/Time: 05/23/201706 Sign date/Time: 05/23/201707 [facility] Jorge Morales MD IMG BI PROCEDURES Final Result from Last 3 Months or Most Recently Relevant to Health Maintenance Insurance [employer] MEDICARE Member Subscriber Plan / Payer (Ef fective 2022-Present) Name:Siria Naranjone Relation to Subscriber:Self Name:Meme Naranjo Payer ID:[id number] Group ID:[id number] Type:Not on file Address: [facility] [address] [phone] MEDICA[place] - [place] Advance Directives Documents on File Type Date Recorded 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
== END 2025-03-01 13:55 | disposition home or self-care (01) ==
LOC: HO.NEURO 13:54
PROVIDERS: PCP Internal Medicine; Visit Provider Physical Medicine & Rehabilitation
DX: G81.11 Spastic hemiplegia affecting right dominant side (principal)
CPT/HCPCS: 64642; 95874; J0585